=== PATIENT | female | born 1975 | race American Indian/Alaskan Native ===

== ENCOUNTER 2018-08-02 06:20 | Inpatient (IN) | payer MEDICARE ==
[2018-08-02] MEDS ORDERED: NACL 0.9% 1000 ML 1,000 ML IV ONE ×3 (06:40→10:45)
[2018-08-02] MEDS ORDERED: DILAUDID IV ONE (06:40)
--- NOTE | 2018-08-02 06:42 | Emergency Department Report ---
- General Chief complaint: Weakness Stated complaint: WEAKNESS Time Seen by Provider: 08/02/18 06:38 Source: patient, EMS Mode of arrival: Stretcher Limitations: Physical Limitation - History of Present Illness Initial comments: Patient is a 42-year-old female with episodes of marginal complaints of generalized weakness times one week that is worsening and bilateral leg pain and edema. Patient states that her leg pain is a 10 out of 10 and is worsening. Patient states the pain is the entire leg but mostly below the knee. Patient states the swelling in her legs or below the knee and are worsening. Patient states the pain is better with rest and worse with palpation and movement. 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 Patient denies chest pain or shortness of breath. Patient denies abdominal pain. Patient denies diaphoresis. Patient denies fever and chills. MD Complaint: generalized weakness -: Gradual Location: generalized Severity: severe Consistency: constant Improves with: rest Worsens with: movement Associated Symptoms: denies: chest pain, confusion, dark stools, diaphoresis, dysuria, easy bruising, fever/chills, headaches, loss of appetite, alec sea/vomiting, rash, shortness of breath, syncope - Related Data Home Medications Medication Instructions Recorded Confirmed Last Taken No Known Home Medications [No 08/02/18 08/02/18 Unknown Reported Home Medications] Allergies Allergy/AdvReac Type Severity Reaction Status Date / Time morphine Allergy Rash Verified 08/02/18 06:49 ED Review of Systems ROS: Stated complaint: WEAKNESS Other details as noted in HPI Constitutional: weakness. denies: chills, fever Eyes: denies: eye pain, eye discharge, vision change ENT: denies: ear pain, throat pain Respiratory: denies: cough, shortness of breath, wheezing Cardiovascular: denies: chest pain, palpitations Endocrine: no symptoms reported Gastrointestinal: denies: abdominal pain, nausea, diarrhea Genitourinary: denies: urgency, dysuria, discharge Musculoskeletal: denies: back pain, joint swelling, arthralgia Skin: denies: rash, lesions Neurological: weakness. denies: headache, paresthesias Psychiatric: denies: anxiety, depression Hematological/Lymphatic: denies: easy bleeding, easy bruising ED Past Medical Hx - Past Medical History Previous Medical History?: Yes Hx Asthma: Yes Additional medical history: Fibromyalgia - Surgical History Past Surgical History?: No - Family History Family history: no significant - Social History Smoking Status: Never Smoker Substance Use Type: None - Medications Home Medications: Home Medications Medication Instructions Recorded Confirmed Last Taken Type No Known Home Medications [No 08/02/18 08/02/18 Unknown History Reported Home Medications] ED Physical Exam - General Limitations: Physical Limitation General appearance: alert, in no apparent distress - Head Head exam: Present: atraumatic, normocephalic - Eye Eye exam: Present: normal appearance, PERRL Pupils: Present: normal accommodation - ENT ENT exam: Present: mucous membranes dry - Neck Neck exam: Present: normal inspection - Respiratory Respiratory exam: Present: normal lung sounds bilaterally. Absent: respiratory distress - Cardiovascular Cardiovascular Exam: Present: regular rate, normal rhythm. Absent: systolic murmur, diastolic murmur, rubs, gallop - GI/Abdominal GI/Abdominal exam: Present: soft, normal bowel sounds. Absent: distended, tenderness, guarding, rebound - Rectal Rectal exam: Present: deferred - Extremities Exam Extremities exam: Present: full ROM, tenderness, pedal edema, calf tenderness, other (red area noted on left medial ankle. Consistent with cellulitis) - Back Exam Back exam: Present: normal inspection - Neurological Exam Neurological exam: Present: alert, oriented X3 - Psychiatric Psychiatric exam: Present: normal affect, normal mood - Skin Skin exam: Present: warm, dry, intact, normal color. Absent: rash - Assessment Assessment Interval: Baseline - Level of Consciousness 1a. Level of Consciousness: alert/keenly responsive - LOC Questions 1b. LOC Questions: answers both correctly - LOC Command 1c. LOC Commands: performs tasks correctly - Best Gaze 2. Best Gaze: normal - Visual 3. Visual: no visual loss - Facial Palsy 4. Facial Palsy: normal symmetrical movement - Motor Arm 5b. Motor Arm Right: no drift 5a. Motor Arm Left: no drift - Motor Leg 6b. Motor Leg Right: no drift 6a. Motor Leg Left: no drift - Limb Ataxia 7. Limb Ataxia: absent - Sensory 8. Sensory: normal - Best Language 9. Best Language: no aphasia - Dysarthria 10. Dysarthria: normal - Extinction and Inattention 11. Extinction/Inattention: no abnormality - Scoring Total Score: 0 Stroke Severity: No Stroke Symptoms ED Course Vital Signs 08/02/18 08/02/18 08/02/18 06:25 10:41 12:34 Temperature 98.6 F Pulse Rate 98 H 110 H 107 H Respiratory 18 16 16 Rate Blood Pressure 150/84 Blood Pressure 102/53 138/86 [Left] O2 Sat by Pulse 95 97 96 Oximetry - Reevaluation(s) Reevaluation #1: Patient states the pain is improved with medications. Patient's initial saline bolus done. Patient's nurse instructed to hang another liter. 08/02/18 08:45 Another liter bolus will be given. Discussed all results with patient. Patient was admitted to the hospitalist service. 08/02/18 10:46 Discussed all results with patient. Patient agrees with plan of care and admission. Patient admitted to the hospitalist service for further evaluation treatment. 08/02/18 11:30 - Consultations Consultation #1: Hospitalist consulted for admission. Hospitalist to admit patient. Hospitalist to assume care patient. 08/02/18 11:30 ED Medical Decision Making - Lab Data Result diagrams: 08/02/18 Unknown 08/02/18 Unknown - EKG Data -: EKG Interpreted by Me EKG shows normal: sinus rhythm, axis, intervals, QRS complexes, ST-T waves Rate: normal - Radiology Data Radiology results: report reviewed, image reviewed interpreted by me: Negative chest x-ray AP CHEST: HISTORY: Weakness, fall, pain There is poor inspiration. The lungs are grossly clear. Heart and mediastinal structures are unremarkable. No acute bony abnormality is detected. IMPRESSION: Negative expiratory chest x-ray. CT HEAD WITHOUT CONTRAST: HISTORY: Weakness. TECHNIQUE: Sequential 2.5mm CT images. COMPARISON: none. FINDINGS: Cerebral Parenchyma: Within normal limits. Cerebellum: Within normal limits. Brainstem: Within normal limits. Ventricles: Normal. Sella: Normal. Extra-axial spaces: Normal. Basal Cisterns: Normal. Intracranial Hemorrhage: None. Midline Shift: None. Calvarium: Normal. Sinuses: Normal. Mastoid Air Cells: Normal. Visualized Orbits: Normal. IMPRESSION: Cranial CT scan within normal limits. - Medical Decision Making Patient is a 42-year-old female that presents emergency room with multiple complaints. Patient found to have elevated CK and elevated WBC. Patient also has a mild cellulitis to the left medial ankle. Patient given antibiotics. Patient's findings are consistent with sepsis. Patient's finding consistent with mild rhabdomyolysis and dehydration as well as renal insufficiency. Patient given multiple saline boluses. Patient will be admitted to the hospitalist service for further evaluation and treatment. - Differential Diagnosis weakness. rhabdo. body aches. myalgia. leg pain. Critical Care Time: Yes Critical care attestation.: If time is entered above; I have spent that time in minutes in the direct care of this critically ill patient, excluding procedure time. Critical Care Time: 45 minutes ED Disposition Clinical Impression: Bilateral lower extremity pain, Bilateral lower extremity edema, Weakness, Body aches, Renal insufficiency, Metabolic acidosis Rhabdomyolysis Qualifiers: Rhabdomyolysis type: non-traumatic Qualified Code(s): M62.82 - Rhabdomyolysis Cellulitis Qualifiers: Site of cellulitis: extremity Site of cellulitis of extremity: lower extremity Laterality: left Qualified Code(s): L03.116 - Cellulitis of left lower limb Sepsis Qualifiers: Sepsis type: sepsis due to unspecified organism Qualified Code(s): A41.9 - Sepsis, unspecified organism UTI (urinary tract infection) Qualifiers: Urinary tract infection type: acute cystitis Hematuria presence: with hematuria Qualified Code(s): N30.01 - Acute cystitis with hematuria Disposition: OP ADMIT IP TO THIS HOSP Is pt being admited?: Yes Does the pt Need Aspirin: No Condition: Critical Time of Disposition: 11:30
[2018-08-02 07:01] LABS: Basophils # (Auto) 0.1 K/mm3 (0.0-0.1); Basophils % (Auto) 0.4 % (0.0-1.8); Hematocrit 45.8 % (30.3-42.9); Hemoglobin 15.4 gm/dl (10.1-14.3); Lymphocytes # (Auto) 0.6 K/mm3 (1.2-5.4); Lymphocytes % (Auto) 3.6 % (13.4-35.0); Mean Corpuscular HGB Conc 34 % (30-34); Mean Corpuscular Volume 94 fl (79-97); Monocytes # (Auto) 0.9 K/mm3 (0.0-0.8); Platelet Count 340 K/mm3 (140-440); Red Blood Count 4.89 M/mm3 (3.65-5.03)
[2018-08-02 07:16] LABS: Creatine Kinase MB 285.3 ng/mL (0.0-4.0)
[2018-08-02 07:17] LABS: Alanine Aminotransferase 44 units/L (7-56); Albumin 4.7 g/dL (3.9-5); BUN/Creatinine Ratio 14; Blood Urea Nitrogen 20 mg/dL (7-17); Calcium 9.4 mg/dL (8.4-10.2); Hemolysis Index 15
--- NOTE | 2018-08-02 08:11 | XRay Report ---
AP CHEST: HISTORY: Weakness, fall, pain There is poor inspiration. The lungs are grossly clear. Heart and mediastinal structures are unremarkable. No acute bony abnormality is detected. IMPRESSION: Negative expiratory chest x-ray.
[2018-08-02] MEDS ORDERED: CLEOCIN 300 MG/50 mL 300 MG/50 ML BAG IV STA (10:52)
--- NOTE | 2018-08-02 10:55 | Cat Scan Report ---
CT HEAD WITHOUT CONTRAST: HISTORY: Weakness. TECHNIQUE: Sequential 2.5mm CT images. COMPARISON: none. FINDINGS: Cerebral Parenchyma: Within normal limits. Cerebellum: Within normal limits. Brainstem: Within normal limits. Ventricles: Normal. Sella: Normal. Extra-axial spaces: Normal. Basal Cisterns: Normal. Intracranial Hemorrhage: None. Midline Shift: None. Calvarium: Normal. Sinuses: Normal. Mastoid Air Cells: Normal. Visualized Orbits: Normal. IMPRESSION: Cranial CT scan within normal limits.
[2018-08-02 11:09] LABS: Bilirubin,Urine NEG (Negative); Blood,Urine LG (Negative); Color,Urine Amber (Yellow); Mucus,Urine 2+ /HPF
[2018-08-02 11:23] LABS: HCG Qualitative,Urine Negative (Negative)
[2018-08-02 12:07] LABS: Amphetamine Screen,Urine PRESUMPTIVE NEGATIVE; Cannabinoid Screen,Urine PRESUMPTIVE NEGATIVE; Cocaine Screen,Urine PRESUMPTIVE NEGATIVE; Methadone Screen,Urine PRESUMPTIVE NEGATIVE; Opiate Screen,Urine PRESUMPTIVE NEGATIVE
[2018-08-02] MEDS ORDERED: SOLU-Medrol IV ONE (12:26)
[2018-08-02 12:34] LABS: Benzodiazepines Screen,Urine PRESUMPTIVE POSITIVE
[2018-08-02] MEDS: ROCEPHIN/NS 2 GM/100 ML 2 GM/100 ML BAG IV SCH (13:50)
[2018-08-02] MEDS ORDERED: SODIUM CHLORIDE FLUSH SYRINGE 10 ML IV PRN (16:58)
[2018-08-02] MEDS ORDERED: TYLENOL PO PRN (16:58)
[2018-08-02] MEDS ORDERED: ZOFRAN IV PRN (16:58)
[2018-08-02] MEDS ORDERED: PROVENTIL IH PRN (16:58)
[2018-08-02] MEDS: DILAUDID IV PRN (18:43)
--- NOTE | 2018-08-02 21:24 | History and Physical Report ---
History of Present Illness Date of admission: 08/02/18 16:58 Chief complaint: My foot is red, and im just tired and sore History of present illness: 42 YO Female with Obesity, Fibromyalgia, Noncompliant with Rheumatologic Medication, Asthma, Medication Noncompliance presents to ED for evaluation. Pt states that she has experienced pain all over her body over the past week with worsening symptoms over the past 2 days. Pt also reports generalized weakness and difficulty sleeping. Pt allso reports redness and tenderness to the left foot. Pt seen and evaluated in ED and found to have LLE Cellulitis, SIRS, Acidosis, as well as flare of Fibromyalgia. Pt admitted to medical floor. Pt denies fever, chills, chest pain, confusion, dark stools, diaphoresis, dysuria, easy bruising, fever/chills, headaches, loss of appetite, nausea/vomiting, rash, shortness of breath, syncope,unilaateral leg pain, calf pain, hemoptysis, individual/family history of DVT/PE. Past History Past Medical History: other (Fibromyalgia) Past Surgical History: No surgical history, Other (reviewed) Social history: single. denies: smoking, alcohol abuse, prescription drug abuse Family history: hypertension Medications and Allergies Allergies Allergy/AdvReac Type Severity Reaction Status Date / Time morphine Allergy Rash Verified 08/02/18 06:49 Home Medications Medication Instructions Recorded Confirmed Last Taken Type Clindamycin [Clindamycin CAP] 300 mg PO Q8H #21 cap 08/02/18 Unknown Rx Active Meds: Active Medications Acetaminophen (Tylenol) 650 mg PO Q4H PRN PRN Reason: Pain MILD(1-3)/Fever >100.5/GRAY Albuterol (Proventil) 2.5 mg IH Q4HRT PRN PRN Reason: Shortness Of Breath Famotidine (Pepcid) 20 mg PO BID BO Hydromorphone HCl (Dilaudid) 0.5 mg IV Q3H PRN PRN Reason: Pain , Severe (7-10) Last Admin: 08/02/18 18:43 Dose: 0.5 mg Documented by: Ceftriaxone Sodium (Rocephin/Ns 2 Gm/100 Ml) 2 gm in 100 mls @ 200 mls/hr IV Q12H BO; Protocol Last Admin: 08/02/18 13:50 Dose: 200 mls/hr Documented by: Ondansetron HCl (Zofran) 4 mg IV Q8H PRN PRN Reason: Nausea And Vomiting Sodium Chloride (Sodium Chloride Flush Syringe 10 Ml) 10 ml IV BID BO Sodium Chloride (Sodium Chloride Flush Syringe 10 Ml) 10 ml IV PRN PRN PRN Reason: LINE FLUSH Review of Systems Constitutional: fatigue, weakness, no weight loss, no weight gain, no fever, no chills Ears, nose, mouth and throat: no ear pain, no ear discharge, no tinnitis, no decreased hearing, no nose pain Breasts: no change in shape, no swelling, no mass Cardiovascular: no chest pain, no orthopnea, no palpitations, no rapid/irregular heart beat, no edema Respiratory: no cough, no excessive sputum, no shortness of breath Gastrointestinal: no nausea, no vomiting, no diarrhea, no constipation Genitourinary Female: no pelvic pain, no flank pain, no menorrhagia, no dysuria Rectal: no pain, no incontinence, no bleeding Musculoskeletal: muscle cramps, myalgias, no neck stiffness, no neck pain, no low back pain, no shooting leg pain Integumentary: no rash, no pruritis, no redness, no sores, no wounds Neurological: no transient paralysis, no paralysis, no weakness, no parathesias, no numbness Psychiatric: depression, no anxiety, no memory loss, no sleep disturbances, no insomnia, no change in appetite Endocrine: no cold intolerance, no heat intolerance, no polyphagia, no excessive thirst, no polydipsia, no polyuria, no nocturia Hematologic/Lymphatic: no easy bruising, no easy bleeding, no lymphadenopathy, no lymphedema Allergic/Immunologic: no wheezing, no persistent infections, no anaphylaxis, no angioedema Exam - Constitutional Vitals: Temp Pulse Resp BP Pulse Ox 97.6 F 110 H 20 135/92 98 08/02/18 18:38 08/02/18 17:43 08/02/18 18:38 08/02/18 18:38 08/02/18 17:43 General appearance: Present: mild distress - EENT Eyes: Present: PERRL ENT: hearing intact, clear oral mucosa - Neck Neck: Present: supple, normal ROM - Respiratory Respiratory effort: normal Respiratory: bilateral: CTA - Cardiovascular Heart Sounds: Present: S1 & S2. Absent: rub, click - Extremities Extremities: pulses symmetrical, No edema Peripheral Pulses: within normal limits - Abdominal General gastrointestinal: Present: soft, non-tender, non-distended, normal bowel sounds Female genitourinary: Present: normal - Integumentary Integumentary: Present: clear, warm, dry - Musculoskeletal Musculoskeletal: gait normal, strength equal bilaterally - Psychiatric Psychiatric: appropriate mood/affect, intact judgment & insight - Neurologic Neurologic: CNII-XII intact, moves all extremities Results - Labs CBC & Chem 7: 08/02/18 Unknown 08/02/18 Unknown Labs: Abnormal lab results 08/02/18 08/02/18 08/02/18 Range/Units 10:24 11:58 14:54 WBC (4.5-11.0) K/mm3 Hgb (10.1-14.3) gm/dl Hct (30.3-42.9) % RDW (13.2-15.2) % Lymph % (Auto) (13.4-35.0) % Lymph # (1.2-5.4) K/mm3 [place] # (0.0-0.8) K/mm3 Seg Neutrophils % (40.0-70.0) % Seg Neutrophils # (1.8-7.7) K/mm3 Carbon Dioxide (22-30) mmol/L BUN (7-17) mg/dL Creatinine (0.7-1.2) mg/dL Lactic Acid 3.20 H* (0.7-2.0) mmol/L AST (5-40) units/L Total Creatine Kinase (30-135) units/L CK-MB (CK-2) (0.0-4.0) ng/mL CK-MB (CK-2) Rel Index (0-4) C-Reactive Protein 7.40 H (0.00-1.30) mg/dL Urine WBC (Auto) 7.0 H (0.0-6.0) /HPF 08/02/18 08/02/18 Range/Units Unknown Unknown WBC 15.3 H (4.5-11.0) K/mm3 Hgb 15.4 H (10.1-14.3) gm/dl Hct 45.8 H (30.3-42.9) % RDW 16.0 H (13.2-15.2) % Lymph % (Auto) 3.6 L (13.4-35.0) % Lymph # 0.6 L (1.2-5.4) K/mm3 [place] # 0.9 H (0.0-0.8) K/mm3 Seg Neutrophils % 90.0 H (40.0-70.0) % Seg Neutrophils # 13.7 H (1.8-7.7) K/mm3 Carbon Dioxide 19 L (22-30) mmol/L BUN 20 H (7-17) mg/dL Creatinine 1.4 H (0.7-1.2) mg/dL Lactic Acid (0.7-2.0) mmol/L AST 336 H (5-40) units/L Total Creatine Kinase 605 H (30-135) units/L CK-MB (CK-2) 285.3 H (0.0-4.0) ng/mL CK-MB (CK-2) Rel Index 47.1 H (0-4) C-Reactive Protein (0.00-1.30) mg/dL Urine WBC (Auto) (0.0-6.0) /HPF Assessment and Plan - Patient Problems (1) Fibromyalgia Current Visit: Yes Status: Acute Plan to address problem: Steroid therapy, ESR, CRP, outpatient rheumatologic f/u care. (2) SIRS (systemic inflammatory response syndrome) Current Visit: Yes Status: Acute (3) Acidosis Current Visit: Yes Status: Acute Plan to address problem: IV fluid resuscitation therapy, treat sirs/cellulitis, repeat bmp (4) Cellulitis Current Visit: Yes Status: Acute Qualifiers: Site of cellulitis: extremity Site of cellulitis of extremity: lower extremity Laterality: left Qualified Code(s): L03.116 - Cellulitis of left lower limb Plan to address problem: IV antibiotic therapy, CBC, CMP, wound care, Duplex-lower extremity (5) DVT prophylaxis Current Visit: Yes Status: Acute Plan to address problem: scd to ble while in bed
[2018-08-02] MEDS: SODIUM CHLORIDE FLUSH SYRINGE 10 ML IV SCH (21:47)
[2018-08-02] MEDS: PEPCID PO SCH (21:47)
[2018-08-03] MEDS ORDERED: NACL 0.45% 1000 ML IV SCH (03:00)
[2018-08-03] MEDS: PERCOCET 5/325 PO PRN ×2 (03:02→10:45)
[2018-08-03] MEDS: ROCEPHIN/NS 2 GM/100 ML 2 GM/100 ML BAG IV SCH (03:02)
[2018-08-03] MEDS: NACL 0.45% 1000 ML 1,000 ML IV SCH (03:06)
[2018-08-03 07:43] LABS: Basophils % (Auto) 0.2 % (0.0-1.8); Eosinophils % (Auto) 0.1 % (0.0-4.3); Hematocrit 38.8 % (30.3-42.9); Hemoglobin 12.9 gm/dl (10.1-14.3); Lymphocytes # (Auto) 1.4 K/mm3 (1.2-5.4); Lymphocytes % (Auto) 9.4 % (13.4-35.0); Mean Corpuscular HGB Conc 33 % (30-34); Mean Corpuscular Volume 94 fl (79-97); Monocytes # (Auto) 1.3 K/mm3 (0.0-0.8); Monocytes % (Auto) 8.4 % (0.0-7.3); Platelet Count 233 K/mm3 (140-440); Red Blood Count 4.15 M/mm3 (3.65-5.03); Red Cell Distribution Width 15.5 % (13.2-15.2)
--- NOTE | 2018-08-03 08:57 | Vascular Lab Report ---
FINAL REPORT EXAM: VL VENOUS DUPLEX LE BILAT HISTORY: leg pain and swelling COMPARISON: None. TECHNIQUE: Duplex Doppler ultrasound of the veins of bilateral lower extremities was performed. FINDINGS: The veins of the right lower extremity are patent, compressible, and demonstrate normal waveforms and augmentation. The left common femoral vein, superficial femoral vein, and popliteal vein are patent, compressible, and demonstrate normal waveforms and augmentation. There is suboptimal visualization of the left post erior tibial vein and peroneal vein, which may be due to patient's body habitus. IMPRESSION: No evidence of deep venous thrombosis of the right lower extremity. Poor visualization of the left posterior tibial vein and peroneal vein at the level of the proximal c senior care, and deep venous thrombosis cannot be fully excluded. The remainder of the left-sided veins are p atent. Recommend clinical correlation and consider repeat imaging if clinically indicated.
[2018-08-03] MEDS: PEPCID PO SCH ×2 (09:28→22:02)
[2018-08-03] MEDS: SODIUM CHLORIDE FLUSH SYRINGE 10 ML IV SCH ×2 (09:29→22:05)
[2018-08-03] MEDS ORDERED: MAXIPIME/NS 1 GM/100 ML 1 GM/100 ML BAG IV SCH (11:00)
--- NOTE | 2018-08-03 14:57 | Consultation ---
History of Present Illness - Reason for Consult Consult date: 08/03/18 Blisters and Cellulitis of left leg Requesting physician: GUMARO MONTALVO - History of Present Illness This patient is a 42 year old female with a past medical history of Fibromyalgia, noncompliant with rheumatologic mediation, Asthma, obesity and medication noncompliance that presents to the ED on 08/02/18 for generalized pain all over her body for the past week with worsening symptoms over the past 2 days, patient also reports redness and tenderness to the left foot. On admiss ion WBC 15.3, Creatinine 1.4, lactic Acid 3.20, AST 336, ALT 44, AP 109, CK 605, CRP 7.40, Temperature 98.1, HR 110, BP 150/84, U/A with Pyruria , negative leukocyte esterase, Chest xray showed no consolidation, blood cultures were drawn and are in progress, Urine cultures showed mixed culture of greater than 2 organisms. Patient states that her leg swelling started after she was bitten by her b oyfriends dog 2 days ago. She also states that she suddenly is having problems "finding her words" and has increased confusion. Review of Systems: General: no fever, chills, nightsweats, unintentional weight change, or change in appetite Cutaneous: no rash, pruritus Head: no headaches or injury Eyes: no changes in vision, eye pain, double vision Ears: no ear pain, ear discharge, ringing or hearing loss Nose: no nose bleeding, stuffiness Mouth & throat: no bleeding gums, no horseness, no dental problems, or swollen glands Neck: no pain, node enlargement/lumps, tyroid enlargement or tenderness Respiratory: + cough, wheezing, sputum, hemoptysis, pleuritic chest pain Cardiovascular: no chest pain, leg edema, cyanosis, FARIAS, orthopnea Musculoskeletal: LLE warm /tender, blistering Gastrointestinal: no nausea, vomiting, hematemesis, diarrhea, constipation, melena, bright red blood in stools, fecal incontinence, jaundice Genitourinary/Reproductive: frequent urination, no dysuria, hematuria, incontinence Neurogical: no seizures, no headaches, no weakness, no paresthesias, +confusion Psychiatric: stable mood; no excessive anxiety Past History Past Medical History: other (Fibromyalgia) Past Surgical History: No surgical history, Other (reviewed) Social history: single. denies: smoking, alcohol abuse, prescription drug abuse Family history: hypertension Medications and Allergies Allergies Allergy/AdvReac Type Severity Reaction Status Date / Time morphine Allergy Rash Verified 08/02/18 06:49 Home Medications Medication Instructions Recorded Confirmed Last Taken Type Clindamycin [Clindamycin CAP] 300 mg PO Q8H #21 cap 08/02/18 Unknown Rx Acyclovir 1 tab PO BID 08/03/18 08/03/18 Unknown History Buspirone HCl 15 mg PO TID 08/03/18 08/03/18 08/01/18 History Doxepin 50 mg PO HS 08/03/18 08/03/18 08/01/18 History Doxepin 100 mg PO HS 08/03/18 08/03/18 07/31/18 History Fluticasone 1 puff AU DAILY PRN 08/03/18 08/03/18 08/01/18 History Haloperidol 5 mg PO HS PRN 08/03/18 08/03/18 Unknown History LaMICtal 100 tab PO BID 08/03/18 08/03/18 08/01/18 History Lyrica 150 mg PO TID 08/03/18 08/03/18 08/01/18 History Topiramate 200 mg PO BID 08/03/18 08/03/18 08/01/18 History Xanax 1 mg PO TID 08/03/18 08/03/18 Unknown History Ziprasidone 80 mg PO BID 08/03/18 08/03/18 Unknown History traZODone 150 mg PO DAILY 08/03/18 08/03/18 08/01/18 History Active Meds: Active Medications Acetaminophen (Tylenol) 650 mg PO Q4H PRN PRN Reason: Pain MILD(1-3)/Fever >100.5/GRAY Albuterol (Proventil) 2.5 mg IH Q4HRT PRN PRN Reason: Shortness Of Breath Famotidine (Pepcid) 20 mg PO BID [facility] Last Admin: 08/03/18 09:28 Dose: 20 mg Documented by: Hydromorphone HCl (Dilaudid) 0.5 mg IV Q3H PRN PRN Reason: Pain , Severe (7-10) Last Admin: 08/02/18 18:43 Dose: 0.5 mg Documented by: Sodium Chloride (Nacl 0.45% 1000 Ml) 1,000 mls @ 75 mls/hr IV DIRECT BO Last Admin: 08/03/18 03:06 Dose: 75 mls/hr Documented by: Cefepime HCl (Maxipime/Ns 1 Gm/100 Ml) 1 gm in 100 mls @ 200 mls/hr IV Q8HR BO; Protocol Last Admin: 08/03/18 10:36 Dose: 200 mls/hr Documented by: Ondansetron HCl (Zofran) 4 mg IV Q8H PRN PRN Reason: Nausea And Vomiting Oxycodone/Acetaminophen (Percocet 5/325) 2 tab PO Q6H PRN PRN Reason: Pain, Moderate (4-6) Last Admin: 08/03/18 10:45 Dose: 2 tab Documented by: Sodium Chloride (Sodium Chloride Flush Syringe 10 Ml) 10 ml IV BID BO Last Admin: 08/03/18 09:29 Dose: 10 ml Documented by: Sodium Chloride (Sodium Chloride Flush Syringe 10 Ml) 10 ml IV PRN PRN PRN Reason: LINE FLUSH Physical Examination - Physical Exam Narrative exam: Constitutional: Alert, confused, left leg pain, 8/10 on numberic pain scale Head, Ears, Nose: Normocephalic, atraumatic. External ears, nose normal Eyes: Conjunctivae/corneas clear. No icterus. No ptosis. Neck: Supple, no meningeal signs Oral: dentition good, no thrush Cardiovascular: S1, S2 normal. Respiratory: Good air entry, clear to auscultation bilaterally GI: Soft, non-tender; bowel sounds normal. No peritoneal signs Musculoskeletal: LLE edematous, warm and tender with blistering on back of left lower limb Skin: No rash or abscess. blistering on Hem/Lymphatic: No palpable cervical or supraclavicular nodes. No lymphangitis Psych: Mood ok. Affect normal Neurological: Awake, alert, confused - Constitutional Vitals: Vital Signs Temp Pulse Resp BP Pulse Ox 98.1 F 106 H 20 113/69 94 08/03/18 11:32 08/03/18 11:32 08/03/18 11:32 08/03/18 11:32 08/03/18 11:32 Temperature -Last 24 Hours Temperature 98.1 F Temperature 98.2 F Temperature 99.6 F Temperature 97.6 F Results - Labs CBC & Chem 7: 08/03/18 06:25 08/02/18 Unknown Labs: Abnormal lab results 08/02/18 08/03/18 Range/Units 14:54 06:25 WBC 15.1 H (4.5-11.0) K/mm3 RDW 15.5 H (13.2-15.2) % Lymph % (Auto) 9.4 L (13.4-35.0) % [place] % (Auto) 8.4 H (0.0-7.3) % [place] # 1.3 H (0.0-0.8) K/mm3 Seg Neutrophils % 81.9 H (40.0-70.0) % Seg Neutrophils # 12.4 H (1.8-7.7) K/mm3 C-Reactive Protein 7.40 H (0.00-1.30) mg/dL Assessment and Plan Cultures: 08/02/2018 Urine: 10-100,000 for mixed culture > 2 organisms 08/02/2018 Blood: in progress A/P: 42-year-old female with a past medical history of Fibromyalgia, noncompliant with rheumatologic medicaiton, Asthma, obesity and medication noncompliance, admitted with: 1. SIRS vs Sepsis: on admission, evidenced by leukocytois, tachycardia and elevated lactic acid, etiology most likely LLE cellulites, +/- Fibromyalgia, receiving steroid therapy, no fevers. Chest xray shows no consolidation, U/A with pyuria, urine culture shows 10-100,000 for mixed culture > 2 organisms, Blood cultures were drawn and are pending. Currently being treated with cefepime. Discontnue Cefepime, start Vancomycin and Unasyn. 2. LLE cellulitis: Unable to exam at beside due to extreme tenderness, LLE edematous and warm, admission pictures show blistering to the left lower limb and ankle. Admits to dog bite 2 days ago. Arterial Doppler: No evidence of deep venous thrombosis of the right lower extremity. Poor visualization of the left posterior tibial vein, and peroneal vein at the and deep venous thrombosis cannot be fully excluded. CRP 7.40 3. Mild Pyuria: U/A pyuria w/o leukocyte esterase, urine culture mixed greater than 2 organisms 4. 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 Acute Encephalopathy: difficulty with memory for the past two days. Head CT within normal limits Plan: -f/u blood culture -f/u urine culture -Start Vancomycin, Pk dose -Start Unasyn 1.5gm IV every 6 hours [facility] M: [phone] O:[phone]
--- NOTE | 2018-08-03 15:19 | Progress Note ---
Assessment and Plan Assessment and plan: Sepsis secondary to cellulitis - Likely due to cellulitis of the left leg - Evidenced by tachycardia, Lactic acidosis and leukocytosis - Patient is on IV antibiotics, IV fluid - We'll follow the results duplex - ID consult placed Fibromyalgia: - Pain control - Continue home medications Lactic Acidosis - IV fluid, treat underlying condition patient has a lot of psych and seizure medications - Resume home medications DVT prophylaxis - On heparin Disposition - Continue inpatient care. History Interval history: Patient was seen and evaluated this morning, patient was complaining severe pain all over had body, she was complaining swelling and blisters on the left leg. Hospitalist Physical - Physical exam Narrative exam: Not in cardiopulmonary distress. The patient is obese. Vital signs as documented. Head exam is unremarkable. No scleral icterus . Neck is without jugular venous distension, thyromegaly, or carotid bruits. Lungs are clear to auscultation. Cardiac exam reveals regular rate and Rhythm. First and second heart sounds normal. No murmurs, rubs or gallops. Abdominal exam reveals normal bowel sounds, no masses, no organomegaly and no aortic enlargement. Extremities swelling, erythema and tenderness of the left leg. Blisters on the left Achilles area, The blisters in the popliteal area are denuded. 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 No focal weakness. - Constitutional Vitals: Temp Pulse Resp BP Pulse Ox 98.1 F 106 H 20 113/69 94 08/03/18 11:32 08/03/18 11:32 08/03/18 11:32 08/03/18 11:32 08/03/18 11:32 General appearance: Present: mild distress Results - Labs CBC & Chem 7: 08/03/18 06:25 08/02/18 Unknown Labs: Laboratory Last Values WBC 15.1 K/mm3 (4.5-11.0) H 08/03/18 06:25 RBC 4.15 M/mm3 (3.65-5.03) 08/03/18 06:25 Hgb 12.9 gm/dl (10.1-14.3) 08/03/18 06:25 Hct 38.8 % (30.3-42.9) D 08/03/18 06:25 MCV 94 fl (79-97) 08/03/18 06:25 MCH 31 pg (28-32) 08/03/18 06:25 MCHC 33 % (30-34) 08/03/18 06:25 RDW 15.5 % (13.2-15.2) H 08/03/18 06:25 Plt Count 233 K/mm3 (140-440) 08/03/18 06:25 Lymph % (Auto) 9.4 % (13.4-35.0) L 08/03/18 06:25 [place] % (Auto) 8.4 % (0.0-7.3) H 08/03/18 06:25 Eos % (Auto) 0.1 % (0.0-4.3) 08/03/18 06:25 Baso % (Auto) 0.2 % (0.0-1.8) 08/03/18 06:25 Lymph # 1.4 K/mm3 (1.2-5.4) 08/03/18 06:25 [place] # 1.3 K/mm3 (0.0-0.8) H 08/03/18 06:25 Eos # 0.0 K/mm3 (0.0-0.4) 08/03/18 06:25 Baso # 0.0 K/mm3 (0.0-0.1) 08/03/18 06:25 Seg Neutrophils % 81.9 % (40.0-70.0) H 08/03/18 06:25 Seg Neutrophils # 12.4 K/mm3 (1.8-7.7) H 08/03/18 06:25 ESR 4 mm/Hr (0-20) 08/02/18 Unknown Sodium 140 mmol/L (137-145) 08/02/18 Unknown Potassium 4.2 mmol/L (3.6-5.0) 08/02/18 Unknown Chloride 101.7 mmol/L (98-107) 08/02/18 Unknown Carbon Dioxide 19 mmol/L (22-30) L 08/02/18 Unknown Anion Gap 24 mmol/L 08/02/18 Unknown BUN 20 mg/dL (7-17) H 08/02/18 Unknown Creatinine 1.4 mg/dL (0.7-1.2) H 08/02/18 Unknown Estimated GFR 50 ml/min 08/02/18 Unknown BUN/Creatinine Ratio 14 % 08/02/18 Unknown Glucose 95 mg/dL (65-100) 08/02/18 Unknown Lactic Acid 3.20 mmol/L (0.7-2.0) H* 08/02/18 11:58 Calcium 9.4 mg/dL (8.4-10.2) 08/02/18 Unknown Total Bilirubin 0.40 mg/dL (0.1-1.2) 08/02/18 Unknown AST 336 units/L (5-40) H 08/02/18 Unknown ALT 44 units/L (7-56) 08/02/18 Unknown Alkaline Phosphatase 109 units/L (35-129) 08/02/18 Unknown Total Creatine Kinase 605 units/L (30-135) H 08/02/18 Unknown CK-MB (CK-2) 285.3 ng/mL (0.0-4.0) H 08/02/18 Unknown CK-MB (CK-2) Rel Index 47.1 (0-4) H 08/02/18 Unknown Troponin T < 0.010 ng/mL (0.00-0.029) 08/02/18 Unknown C-Reactive Protein 7.40 mg/dL (0.00-1.30) H 08/02/18 14:54 Total Protein 7.9 g/dL (6.3-8.2) 08/02/18 Unknown Albumin 4.7 g/dL (3.9-5) 08/02/18 Unknown Albumin/Globulin Ratio 1.5 % 08/02/18 Unknown HCG, Qual Negative (Negative) 08/02/18 Unknown Urine Color Lori (Yellow) 08/02/18 10:24 Urine Turbidity Cloudy (Clear) 08/02/18 10:24 Urine pH 6.0 (5.0-7.0) 08/02/18 10:24 Ur Specific [place] 1.020 (1.003-1.030) 08/02/18 10:24 Urine Protein 100 mg/dl mg/dL (Negative) 08/02/18 10:24 Urine Glucose (UA) Neg mg/dL (Negative) 08/02/18 10:24 Urine Ketones Neg mg/dL (Negative) 08/02/18 10:24 Urine Blood Lg (Negative) 08/02/18 10:24 Urine Nitrite Neg (Negative) 08/02/18 10:24 Urine Bilirubin Neg (Negative) 08/02/18 10:24 Urine Urobilinogen 2.0 mg/dL (<2.0) 08/02/18 10:24 Ur Leukocyte Esterase Neg (Negative) 08/02/18 10:24 Urine WBC (Auto) 7.0 /HPF (0.0-6.0) H 08/02/18 10:24 Urine RBC (Auto) 3.0 /HPF (0.0-6.0) 08/02/18 10:24 U Epithel Cells (Auto) 4.0 /HPF (0-13.0) 08/02/18 10:24 Urine Mucus 2+ /HPF 08/02/18 10:24 Urine HCG, Qual Negative (Negative) 08/02/18 10:24 Urine Opiates Screen Presumptive negative 08/02/18 10:33 Urine Methadone Screen Presumptive negative 08/02/18 10:33 Ur Barbiturates Screen Presumptive negative 08/02/18 10:33 Ur Phencyclidine Scrn Presumptive negative 08/02/18 10:33 Ur Amphetamines Screen Presumptive negative 08/02/18 10:33 U Benzodiazepines Scrn Presumptive positive 08/02/18 10:33 Urine Cocaine Screen Presumptive negative 08/02/18 10:33 U Marijuana (THC) Screen Presumptive negative 08/02/18 10:33 Drugs of Abuse Note Disclamer 08/02/18 10:33
[2018-08-03] MEDS ORDERED: HALDOL PO PRN (15:34)
[2018-08-03] MEDS ORDERED: VANCOMYCIN PHARMACY TO DOSE IV SCH (18:00)
[2018-08-03] MEDS ORDERED: VANCOMYCIN 1,750 MG in NACL 0.9% 500 ML 500 ML IV ONE (18:00)
[2018-08-03] MEDS: UNASYN/NS 1.5 GM/50 ML 1.5 GM/50 ML BAG IV SCH (18:42)
[2018-08-03] MEDS: LYRICA PO SCH (20:32)
[2018-08-03] MEDS: XANAX PO SCH (20:33)
[2018-08-03] MEDS: BUSPAR PO SCH (20:33)
[2018-08-03] MEDS: GEODON PO SCH (22:01)
[2018-08-03] MEDS: HEPARIN SUB-Q SCH (22:02)
[2018-08-03] MEDS: SINEquan PO SCH ×2 (22:02)
[2018-08-03] MEDS: DESYREL PO SCH (22:02)
[2018-08-03] MEDS: TOPAMAX PO SCH (22:04)
[2018-08-03] MEDS: LaMICtal PO SCH (22:04)
[2018-08-03] MEDS: DILAUDID IV PRN (22:15)
[2018-08-04] MEDS: UNASYN/NS 1.5 GM/50 ML 1.5 GM/50 ML BAG IV SCH ×3 (01:54→16:59)
[2018-08-04] MEDS: HEPARIN SUB-Q SCH ×2 (06:10→13:58)
[2018-08-04 08:18] LABS: Basophils # (Auto) 0.1 K/mm3 (0.0-0.1); Basophils % (Auto) 0.6 % (0.0-1.8); Eosinophils % (Auto) 0.3 % (0.0-4.3); Hematocrit 34.9 % (30.3-42.9); Hemoglobin 11.5 gm/dl (10.1-14.3); Lymphocytes # (Auto) 1.3 K/mm3 (1.2-5.4); Lymphocytes % (Auto) 8.6 % (13.4-35.0); Mean Corpuscular HGB Conc 33 % (30-34); Mean Corpuscular Volume 93 fl (79-97); Monocytes # (Auto) 1.4 K/mm3 (0.0-0.8); Monocytes % (Auto) 9.1 % (0.0-7.3); Platelet Count 225 K/mm3 (140-440); Red Blood Count 3.77 M/mm3 (3.65-5.03); Red Cell Distribution Width 15.2 % (13.2-15.2)
[2018-08-04 08:34] LABS: BUN/Creatinine Ratio 14; Blood Urea Nitrogen 13 mg/dL (7-17); Calcium 8.3 mg/dL (8.4-10.2); Hemolysis Index 1
[2018-08-04] MEDS: GEODON PO SCH (09:28)
[2018-08-04] MEDS: TOPAMAX PO SCH (09:29)
[2018-08-04] MEDS: XANAX PO SCH ×2 (09:31→14:50)
[2018-08-04] MEDS: LaMICtal PO SCH (09:31)
[2018-08-04] MEDS: LYRICA PO SCH ×2 (09:31→14:13)
[2018-08-04] MEDS: PEPCID PO SCH (09:31)
[2018-08-04] MEDS: BUSPAR PO SCH ×2 (09:32→14:13)
[2018-08-04] MEDS: SODIUM CHLORIDE FLUSH SYRINGE 10 ML IV SCH (09:41)
[2018-08-04] MEDS ORDERED: K-DUR PO NR (09:42)
--- NOTE | 2018-08-04 09:55 | Progress Note ---
Addendum entered and electronically signed by ELLY QUINONES NP 08/04/18 15:15: Dr. Roche will be distribution dispatcher this weekend, , please call for questions. Addendum entered and electronically signed by SOCORRO VAZQUEZ MD 08/04/18 14:58: Physician Attestation: I have seen and examined patient. I personally discussed and directed assessment and management with TALIA Quinones. Patient with extensive dog-bite associated cellulitis and acute encephalopathy. On unasyn and vancomycin, not better, still fever and leukocytosis. She is still confused. On exam extensive posterior left leg edema, skin sloughing and tenderness. Should r/o necrotizing soft tissue infection. Obtain start CT leg, start meropenem, clindamycin and continue vanco. Surgical consult. Socorro Orantes MD Infectious Diseases Senior Accountant [facility], [place] [facility] ([facility]) M [phone] O [phone] Original Note: Assessment and Plan Cultures: 08/02/2018 Urine: 10-100,000 for mixed culture > 2 organisms 08/02/2018 Blood: in progress A/P: 42-year-old female with a past medical history of Fibromyalgia, noncompliant with rheumatologic medicaiton, Asthma, obesity and medication noncompliance, admitted with: 1. SIRS vs Sepsis: Improved, evidenced by leukocytois, tachycardia and elevated lactic acid, etiology most likely LLE cellulites, +/- Fibromyalgia, receiving steroid therapy, no fevers. Chest xray shows no consolidation, U/A with pyuria, urine culture shows 10-100,000 for mixed culture > 2 organisms, Blood cultures were drawn and are pending. Currently being treated with cefepime. Discontnue Cefepime, start Vancomycin and Unasyn. 2. Dog Bite Associated Cellulitis LLE versus necrotizing infection: Unable to exam at beside due to extreme tenderness, LLE edematous and warm, admission pictures show blistering to the left lower limb and ankle. Admits to dog bite 2 days ago. DDX Pasteurella/Capnocytophaga/MRSA Arterial Doppler: No evidence of deep venous thrombosis of the right lower extremity. Poor visualization of the left posterior tibial vein, and peroneal vein at the and deep venous thrombosis cannot be fully excluded. CRP 7.40 3. Mild Pyuria: U/A pyuria w/o leukocyte esterase, urine culture mixed greater than 2 organisms 4. 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 Acute Encephalopathy: difficulty with memory for the past two days. Head CT within normal limits ? from severe sepsis from skin infection Plan: -urgent CT left leg r/o necrotizing infection -surgical consult -start meropenem and clindamycin -continue vancomycin for now -f/u blood culture -f/u urine culture - stop unasyn -order DEXTER, ANCA, C3, C4 close monitoring [facility] M: [phone] O:[phone] Subjective Date of service: 08/04/18 Objective - Constitutional Vitals: Vital Signs Temp Pulse Resp BP Pulse Ox 97.7 F 111 H 18 135/78 100 08/03/18 22:19 08/03/18 22:19 08/03/18 22:19 08/03/18 22:19 08/03/18 22:19 Temperature -Last 24 Hours Temperature 97.7 F Temperature 99.7 F Temperature 98.1 F - Labs CBC & Chem 7: 08/04/18 07:44 08/04/18 07:44 Labs: Abnormal lab results 08/03/18 08/04/18 08/04/18 Range/Units 16:18 07:44 07:44 WBC 14.9 H (4.5-11.0) K/mm3 Lymph % (Auto) 8.6 L (13.4-35.0) % [place] % (Auto) 9.1 H (0.0-7.3) % [place] # 1.4 H (0.0-0.8) K/mm3 Seg Neutrophils % 81.4 H (40.0-70.0) % Seg Neutrophils # 12.1 H (1.8-7.7) K/mm3 Sodium 136 L (137-145) mmol/L Potassium 3.3 L D (3.6-5.0) mmol/L Carbon Dioxide 20 L (22-30) mmol/L Lactic Acid 0.50 L (0.7-2.0) mmol/L Calcium 8.3 L (8.4-10.2) mg/dL
[2018-08-04] MEDS ORDERED: FLONASE NS PRN (10:00)
[2018-08-04] MEDS: VANCOMYCIN 1,250 MG in NACL 0.9% 250ML 250 ML IV SCH (11:36)
--- NOTE | 2018-08-04 13:50 | Progress Note ---
Assessment and Plan Assessment and plan: Sepsis secondary to cellulitis ID suspected necrotizing cellulitis - Likely due to necrotizing cellulitis of the left leg - Evidenced by tachycardia, Lactic acidosis and leukocytosis - Patient is on IV vanc, meroprnem and clindamycin, IV fluid - Doppler negative, stat CT of the left leg ordered - ID consult placed Patient is sluggish to answer questions - I don't know if it is her baseline - CT head is negative - Patient said her confusion is due to her psychiatric condition Depression, bipolar disorder, schizophrenia - Continue home medications Fibromyalgia: - Pain control - Continue home medications Lactic Acidosis - resolved with IV fluids patient has a lot of psych and seizure medications - Resume home medications DVT prophylaxis - On heparin Disposition - Transfer to MICU for close monitoring Prognosis; Guarded History Interval history: Patient was seen and evaluated this morning, patient was complaining severe pain all over had body, she was complaining swelling and blisters on the left leg. patient is very sluggish to answer questions that are asked and oriented to self and place. Not oriented to time. Hospitalist Physical - Physical exam Narrative exam: Not in cardiopulmonary distress. The patient is obese. Vital signs as documented. Head exam is unremarkable. No scleral icterus . Neck is without jugular venous distension, thyromegaly, or carotid bruits. Lungs are clear to auscultation. Cardiac exam reveals regular rate and Rhythm. First and second heart sounds normal. No murmurs, rubs or gallops. Abdominal exam reveals normal bowel sounds, no masses, no organomegaly and no aortic enlargement. Extremities swelling, erythema and tenderness of the left leg. Blisters on the left Achilles area, The blisters in the popliteal area are denuded. 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 No focal weakness. - Constitutional Vitals: Temp Pulse Resp BP Pulse Ox 98.0 F 100 H 20 107/68 97 08/04/18 12:14 08/04/18 12:14 08/04/18 12:14 08/04/18 12:14 08/04/18 12:14 General appearance: Present: mild distress Results - Labs CBC & Chem 7: 08/04/18 07:44 08/04/18 07:44 Labs: Laboratory Last Values WBC 14.9 K/mm3 (4.5-11.0) H 08/04/18 07:44 RBC 3.77 M/mm3 (3.65-5.03) 08/04/18 07:44 Hgb 11.5 gm/dl (10.1-14.3) 08/04/18 07:44 Hct 34.9 % (30.3-42.9) 08/04/18 07:44 MCV 93 fl (79-97) 08/04/18 07:44 MCH 31 pg (28-32) 08/04/18 07:44 MCHC 33 % (30-34) 08/04/18 07:44 RDW 15.2 % (13.2-15.2) 08/04/18 07:44 Plt Count 225 K/mm3 (140-440) 08/04/18 07:44 Lymph % (Auto) 8.6 % (13.4-35.0) L 08/04/18 07:44 [place] % (Auto) 9.1 % (0.0-7.3) H 08/04/18 07:44 Eos % (Auto) 0.3 % (0.0-4.3) 08/04/18 07:44 Baso % (Auto) 0.6 % (0.0-1.8) 08/04/18 07:44 Lymph # 1.3 K/mm3 (1.2-5.4) 08/04/18 07:44 [place] # 1.4 K/mm3 (0.0-0.8) H 08/04/18 07:44 Eos # 0.0 K/mm3 (0.0-0.4) 08/04/18 07:44 Baso # 0.1 K/mm3 (0.0-0.1) 08/04/18 07:44 Seg Neutrophils % 81.4 % (40.0-70.0) H 08/04/18 07:44 Seg Neutrophils # 12.1 K/mm3 (1.8-7.7) H 08/04/18 07:44 ESR 4 mm/Hr (0-20) 08/02/18 Unknown Sodium 136 mmol/L (137-145) L 08/04/18 07:44 Potassium 3.3 mmol/L (3.6-5.0) L D 08/04/18 07:44 Chloride 100.8 mmol/L (98-107) 08/04/18 07:44 Carbon Dioxide 20 mmol/L (22-30) L 08/04/18 07:44 Anion Gap 19 mmol/L 08/04/18 07:44 BUN 13 mg/dL (7-17) 08/04/18 07:44 Creatinine 0.9 mg/dL (0.7-1.2) 08/04/18 07:44 Estimated GFR > 60 ml/min 08/04/18 07:44 BUN/Creatinine Ratio 14 % 08/04/18 07:44 Glucose 91 mg/dL (65-100) 08/04/18 07:44 Lactic Acid 0.50 mmol/L (0.7-2.0) L 08/03/18 16:18 Calcium 8.3 mg/dL (8.4-10.2) L 08/04/18 07:44 Total Bilirubin 0.40 mg/dL (0.1-1.2) 08/02/18 Unknown AST 336 units/L (5-40) H 08/02/18 Unknown ALT 44 units/L (7-56) 08/02/18 Unknown Alkaline Phosphatase 109 units/L (35-129) 08/02/18 Unknown Total Creatine Kinase 605 units/L (30-135) H 08/02/18 Unknown CK-MB (CK-2) 285.3 ng/mL (0.0-4.0) H 08/02/18 Unknown CK-MB (CK-2) Rel Index 47.1 (0-4) H 08/02/18 Unknown Troponin T < 0.010 ng/mL (0.00-0.029) 08/02/18 Unknown C-Reactive Protein 7.40 mg/dL (0.00-1.30) H 08/02/18 14:54 Total Protein 7.9 g/dL (6.3-8.2) 08/02/18 Unknown Albumin 4.7 g/dL (3.9-5) 08/02/18 Unknown Albumin/Globulin Ratio 1.5 % 08/02/18 Unknown HCG, Qual Negative (Negative) 08/02/18 Unknown Urine Color [place] (Yellow) 08/02/18 10:24 Urine Turbidity Cloudy (Clear) 08/02/18 10:24 Urine pH 6.0 (5.0-7.0) 08/02/18 10:24 Ur Specific [place] 1.020 (1.003-1.030) 08/02/18 10:24 Urine Protein 100 mg/dl mg/dL (Negative) 08/02/18 10:24 Urine Glucose (UA) Neg mg/dL (Negative) 08/02/18 10:24 Urine Ketones Neg mg/dL (Negative) 08/02/18 10:24 Urine Blood Lg (Negative) 08/02/18 10:24 Urine Nitrite Neg (Negative) 08/02/18 10:24 Urine Bilirubin Neg (Negative) 08/02/18 10:24 Urine Urobilinogen 2.0 mg/dL (<2.0) 08/02/18 10:24 Ur Leukocyte Esterase Neg (Negative) 08/02/18 10:24 Urine WBC (Auto) 7.0 /HPF (0.0-6.0) H 08/02/18 10:24 Urine RBC (Auto) 3.0 /HPF (0.0-6.0) 08/02/18 10:24 U Epithel Cells (Auto) 4.0 /HPF (0-13.0) 08/02/18 10:24 Urine Mucus 2+ /HPF 08/02/18 10:24 Urine HCG, Qual Negative (Negative) 08/02/18 10:24 Urine Opiates Screen Presumptive negative 08/02/18 10:33 Urine Methadone Screen Presumptive negative 08/02/18 10:33 Ur Barbiturates Screen Presumptive negative 08/02/18 10:33 Ur Phencyclidine Scrn Presumptive negative 08/02/18 10:33 Ur Amphetamines Screen Presumptive negative 08/02/18 10:33 U Benzodiazepines Scrn Presumptive positive 08/02/18 10:33 Urine Cocaine Screen Presumptive negative 08/02/18 10:33 U Marijuana (THC) Screen Presumptive negative 08/02/18 10:33 Drugs of Abuse Note Disclamer 08/02/18 10:33
[2018-08-04] MEDS: MERREM 1,000 MG in NACL 0.9% 100 ML IV SCH (16:50)
--- NOTE | 2018-08-04 16:58 | Consultation ---
History of Present Illness Consult date: 08/04/18 Reason for consult: wound care Requesting physician: GUMARO MONTALVO Chief complaint: left leg pain - History of present illness History of present illness: 42yo F with h/o fibromyalgia and rheumatoid arthritis presented with left leg pain, swelling and redness after suffering a dog scratch a number of days earlier. She was admitted for resuscitation and IV Abx. General surgery was asked to see the patient today due to concerns of possible necrotizing fasciitis. Patient is unable to say for sure if the leg is getting better or getting worse. She says that she has good days and bad days. She has a lot of pain and that leg. She also has a lot of chronic pain. She does not recall where on the leg she was scratched. She does believe the skin was broken. Past History Past Medical History: other (Fibromyalgia, rheumatoid arthritis, asthma) Past Surgical History: Other (left ankle reconstruction) Social history: single. denies: smoking, alcohol abuse, prescription drug abuse Family history: hypertension Medications and Allergies Allergies Allergy/AdvReac Type Severity Reaction Status Date / Time morphine Allergy Rash Verified 08/02/18 06:49 Home Medications Medication Instructions Recorded Confirmed Last Taken Type Clindamycin [Clindamycin CAP] 300 mg PO Q8H #21 cap 08/02/18 Unknown Rx Acyclovir 1 tab PO BID 08/03/18 08/03/18 Unknown History Buspirone HCl 15 mg PO TID 08/03/18 08/03/18 08/01/18 History Doxepin 50 mg PO HS 08/03/18 08/03/18 08/01/18 History Doxepin 100 mg PO HS 08/03/18 08/03/18 07/31/18 History Fluticasone 1 puff AU DAILY PRN 08/03/18 08/03/18 08/01/18 History Haloperidol 5 mg PO HS PRN 08/03/18 08/03/18 Unknown History LaMICtal 100 tab PO BID 08/03/18 08/03/18 08/01/18 History Lyrica 150 mg PO TID 08/03/18 08/03/18 08/01/18 History Topiramate 200 mg PO BID 08/03/18 08/03/18 08/01/18 History Xanax 1 mg PO TID 08/03/18 08/03/18 Unknown History Ziprasidone 80 mg PO BID 08/03/18 08/03/18 Unknown History traZODone 150 mg PO DAILY 08/03/18 08/03/18 08/01/18 History Active Meds: Active Medications Acetaminophen (Tylenol) 650 mg PO Q4H PRN PRN Reason: Pain MILD(1-3)/Fever >100.5/GRAY Last Admin: 08/04/18 06:10 Dose: 650 mg Documented by: Albuterol (Proventil) 2.5 mg IH Q4HRT PRN PRN Reason: Shortness Of Breath Alprazolam (Xanax) 1 mg PO TID [facility] Last Admin: 08/04/18 14:50 Dose: Not Given Documented by: Buspirone HCl (Buspar) 15 mg PO TID [facility] Last Admin: 08/04/18 14:13 Dose: 15 mg Documented by: Doxepin HCl (Sinequan) 50 mg PO HS [facility] Last Admin: 08/03/18 22:02 Dose: 50 mg Documented by: Doxepin HCl (Sinequan) 100 mg PO QHS [facility] Last Admin: 08/03/18 22:02 Dose: 100 mg Documented by: Famotidine (Pepcid) 20 mg PO BID [facility] Last Admin: 08/04/18 09:31 Dose: 20 mg Documented by: Fluticasone Propionate (Flonase) 50 mcg NS QDAY PRN PRN Reason: CONGESTION Haloperidol (Haldol) 5 mg PO HS PRN PRN Reason: Agitation Heparin Sodium (Porcine) (Heparin) 5,000 unit SUB-Q Q8HR [facility] Last Admin: 08/04/18 13:58 Dose: 5,000 unit Documented by: Hydromorphone HCl (Dilaudid) 0.5 mg IV Q3H PRN PRN Reason: Pain , Severe (7-10) Last Admin: 08/03/18 22:15 Dose: 0.5 mg Documented by: Sodium Chloride (Nacl 0.45% 1000 Ml) 1,000 mls @ 75 mls/hr IV DIRECT [facility] Last Admin: 08/03/18 03:06 Dose: 75 mls/hr Documented by: Vancomycin HCl 1,250 mg/ (Sodium Chloride) 275 mls @ 166.667 mls/hr IV Q12H [facility] Last Admin: 08/04/18 11:36 Dose: 166.667 mls/hr Documented by: Clindamycin HCl (Cleocin 900 Mg/50 Ml) 900 mg in 50 mls @ 100 mls/hr IV Q8HR [facility]; Protocol Meropenem 1,000 mg/ Sodium (Chloride) 100 mls @ 100 mls/hr IV Q8HR [facility]; Protocol Last Admin: 08/04/18 16:50 Dose: 100 mls/hr Documented by: Lamotrigine (Lamictal) 100 mg PO BID [facility] Last Admin: 08/04/18 09:31 Dose: 100 mg Documented by: Ondansetron HCl (Zofran) 4 mg IV Q8H PRN PRN Reason: Nausea And Vomiting Oxycodone/Acetaminophen (Percocet 5/325) 2 tab PO Q6H PRN PRN Reason: Pain, Moderate (4-6) Last Admin: 08/03/18 10:45 Dose: 2 tab Documented by: Pregabalin (Lyrica) 150 mg PO TID [facility] Last Admin: 08/04/18 14:13 Dose: 150 mg Documented by: Sodium Chloride (Sodium Chloride Flush Syringe 10 Ml) 10 ml IV BID [facility] Last Admin: 08/04/18 09:41 Dose: Not Given Documented by: Sodium Chloride (Sodium Chloride Flush Syringe 10 Ml) 10 ml IV PRN PRN PRN Reason: LINE FLUSH Topiramate (Topamax) 200 mg PO BID [facility] Last Admin: 08/04/18 09:29 Dose: 200 mg Documented by: Trazodone HCl (Desyrel) 150 mg PO QHS [facility] Last Admin: 08/03/18 22:02 Dose: 150 mg Documented by: Ziprasidone (Geodon) 80 mg PO BID [facility] Last Admin: 08/04/18 09:28 Dose: 80 mg Documented by: Review of Systems - Constitutional fever, chronic pain, no chills - Cardiovascular no chest pain - Respiratory no cough - Gastrointestinal no abdominal pain - Muskuloskeletal left: knee pain, knee swelling, ankle pain, ankle swelling, foot pain, foot swelling - Integumentary redness, blisters Exam Vital Signs Temp Pulse Resp BP Pulse Ox 98.6 F 98 H 18 150/84 95 08/02/18 06:25 08/02/18 06:25 08/02/18 06:25 08/02/18 06:25 08/02/18 06:25 - General physical appearance Positive: no distress, no pain - Respiratory Positive: normal expansion, normal respiratory effort, clear to auscultation - Cardiovascular Rhythm: regular - Abdomen Abdomen: Present: soft. Absent: tender - Psychiatric Psychiatric: depressed Results - Labs 08/04/18 07:44 08/04/18 07:44 Abnormal lab results 08/04/18 08/04/18 Range/Units 07:44 07:44 WBC 14.9 H (4.5-11.0) K/mm3 Lymph % (Auto) 8.6 L (13.4-35.0) % [place] % (Auto) 9.1 H (0.0-7.3) % [place] # 1.4 H (0.0-0.8) K/mm3 Seg Neutrophils % 81.4 H (40.0-70.0) % Seg Neutrophils # 12.1 H (1.8-7.7) K/mm3 Sodium 136 L (137-145) mmol/L Potassium 3.3 L D (3.6-5.0) mmol/L Carbon Dioxide 20 L (22-30) mmol/L Calcium 8.3 L (8.4-10.2) mg/dL Diabetes panel 08/04/18 Range/Units 07:44 Sodium 136 L (137-145) mmol/L Potassium 3.3 L D (3.6-5.0) mmol/L Chloride 100.8 (98-107) mmol/L Carbon Dioxide 20 L (22-30) mmol/L BUN 13 (7-17) mg/dL Creatinine 0.9 (0.7-1.2) mg/dL Glucose 91 (65-100) mg/dL Calcium 8.3 L (8.4-10.2) mg/dL Calcium panel 08/04/18 Range/Units 07:44 Calcium 8.3 L (8.4-10.2) mg/dL Pituitary panel 08/04/18 Range/Units 07:44 Sodium 136 L (137-145) mmol/L Potassium 3.3 L D (3.6-5.0) mmol/L Chloride 100.8 (98-107) mmol/L Carbon Dioxide 20 L (22-30) mmol/L BUN 13 (7-17) mg/dL Creatinine 0.9 (0.7-1.2) mg/dL Glucose 91 (65-100) mg/dL Calcium 8.3 L (8.4-10.2) mg/dL Adrenal panel 08/04/18 Range/Units 07:44 Sodium 136 L (137-145) mmol/L Potassium 3.3 L D (3.6-5.0) mmol/L Chloride 100.8 (98-107) mmol/L Carbon Dioxide 20 L (22-30) mmol/L BUN 13 (7-17) mg/dL Creatinine 0.9 (0.7-1.2) mg/dL Glucose 91 (65-100) mg/dL Calcium 8.3 L (8.4-10.2) mg/dL - Imaging Additional studies: CT LLE Assessment and Plan - Patient Problems (1) Cellulitis Current Visit: Yes Status: Acute Qualifiers: Site of cellulitis: extremity Site of cellulitis of extremity: lower extremity Laterality: left Qualified Code(s): L03.116 - Cellulitis of left lower limb Plan to address problem: There is concern for possible necrotizing fasciitis. Unfortunately, patient is unable to give reliable history. I am seeing her for the 1st time so I do not have any prior exams for comparison. The CT scan only shows cellulitis (I reviewed the images with Dr. Shankar). However, that does not exclude the possibility of an early necrotizing process. I discussed the pros and cons of going to surgery today versus observation. Questions were answered. She decided to go for surgery today. I think that is a reasonable choice. Procedure, risks, benefits were discussed. Consent was obtained. We will go for left leg exploration tonight. Time=60min
[2018-08-04] MEDS: CLEOCIN 900 MG/50 mL 900 MG/50 ML BAG IV SCH (18:10)
[2018-08-04] MEDS ORDERED: SUBLIMAZE ONE (18:23)
[2018-08-04] MEDS ORDERED: DIPRIVAN 10 MG/ML IV ONE (18:23)
--- NOTE | 2018-08-04 18:29 | Anesthesia Consultation ---
Anesthesia Consult and Med Hx Date of service: 08/04/18 - Airway Anesthetic Teeth Evaluation: Good ROM Head & Neck: Adequate Mental/Hyoid Distance: Adequate Mallampati Class: Class III Intubation Access Assessment: Possibly Difficult - Pulmonary Exam CTA: Yes - Cardiac Exam Cardiac Exam: RRR - Pre-Operative Health Status ASA Pre-Surgery Classification: ASA3 Proposed Anesthetic Plan: General - Pulmonary Hx Asthma: Yes Hx Respiratory Symptoms: No Home Oxygen Therapy: No - Cardiovascular System Hx Hypertension: No Hx Heart Attack/AMI: No - Central Nervous System Hx Seizures: No CVA: No Hx Psychiatric Problems: Yes (depression, schizophrenia, bipolar d/o) - Endocrine Hx Renal Disease: No Hx Liver Disease: No Hx Insulin Dependent Diabetes: No Hx Non-Insulin Dependent Diabetes: No Hx Thyroid Disease: No - Hematic Hx Anemia: Yes - Other Systems Hx Obesity: Yes - Additional Comments Anesthesia Medical History Comments: PMH asthma, fibromyalgia, depression, bipol ar d/o, and schizophrenia presenting with sepsis 2/2 LLE cellulitis scheduled for I&D. Prolonged QTc 557 on admission EKG. NPO solids >8hrs, liquids (non- particulate juice) today 1400.
[2018-08-04] MEDS ORDERED: DILAUDID IV PRN (19:01)
--- NOTE | 2018-08-04 19:01 | Anesthesia Day of Surgery ---
Anesthesia Day of Surgery - Day of Surgery Patient Examined: Yes Patient H&P Reviewed: Yes Patient is NPO: Yes
[2018-08-04] MEDS ORDERED: NACL 0.9% 1000 ML 1,000 ML ONE (19:07)
[2018-08-04] MEDS ORDERED: NACL 0.9% IR ONE (19:15)
[2018-08-04] MEDS ORDERED: DECADRON ONE (19:35)
--- NOTE | 2018-08-04 20:09 | Post Operative Note ---
Date of procedure: 08/04/18 (dictation:[id number]) Pre-op diagnosis: cellulitis. Possible necrotizing fasciitis Post-op diagnosis: other (cellulitis) Findings: normal fascia. subcutaneous tissue edematous, but otherwise completely normal Procedure: Left leg exploration Anesthesia: GETA Surgeon: TONI MOORE Estimated blood loss: minimal Pathology: list (2 sets of culture swabs and 2 tissue specimens for culture) Specimen disposition: to lab Condition: stable Disposition: PACU
--- NOTE | 2018-08-04 20:59 | Post Anesthesia Evaluation ---
- Post Anesthesia Evaluation Patient Participated: Yes Airway Patent: Yes Stable Respiratory Function: Yes Nausea/Vomiting: No Temp > 96.8F: Yes Pain Manageable: Yes Adequeate Hydration: Yes Anesthesia Complications: No
[2018-08-05] MEDS: MERREM 1,000 MG in NACL 0.9% 100 ML IV SCH ×4 (01:09→22:09)
[2018-08-05] MEDS: PEPCID PO SCH ×3 (01:34→22:20)
[2018-08-05] MEDS: GEODON PO SCH ×3 (01:35→22:18)
[2018-08-05] MEDS: SINEquan PO SCH ×4 (01:36→22:33)
[2018-08-05] MEDS: LYRICA PO SCH ×4 (01:37→22:32)
[2018-08-05] MEDS: XANAX PO SCH ×4 (01:38→22:16)
[2018-08-05] MEDS: BUSPAR PO SCH ×4 (01:38→22:13)
[2018-08-05] MEDS: TOPAMAX PO SCH ×3 (01:38→22:23)
[2018-08-05] MEDS: PERCOCET 5/325 PO PRN ×2 (01:47→22:07)
[2018-08-05] MEDS: VANCOMYCIN 1,250 MG in NACL 0.9% 250ML 250 ML IV SCH ×2 (01:50→12:53)
[2018-08-05] MEDS: HEPARIN SUB-Q SCH ×4 (01:55→22:19)
[2018-08-05] MEDS: CLEOCIN 900 MG/50 mL 900 MG/50 ML BAG IV SCH ×4 (04:28→22:04)
[2018-08-05 05:59] LABS: Hematocrit 33.5 % (30.3-42.9); Hemoglobin 11.2 gm/dl (10.1-14.3); Mean Corpuscular HGB Conc 33 % (30-34); Mean Corpuscular Volume 93 fl (79-97); Platelet Count 224 K/mm3 (140-440); Red Blood Count 3.58 M/mm3 (3.65-5.03)
[2018-08-05] MEDS: LaMICtal PO SCH ×3 (06:19→22:20)
[2018-08-05] MEDS: NACL 0.45% 1000 ML 1,000 ML IV SCH (06:20)
[2018-08-05] MEDS: SODIUM CHLORIDE FLUSH SYRINGE 10 ML IV SCH ×3 (06:26→22:24)
[2018-08-05 06:40] LABS: Basophils % (Manual) 0 % (0.0-1.8); Eosinophils % (Manual) 0 % (0.0-4.3); Total Cells Counted 100
[2018-08-05 06:40] LABS: BUN/Creatinine Ratio 14; Blood Urea Nitrogen 13 mg/dL (7-17); Calcium 8.6 mg/dL (8.4-10.2); Hemolysis Index 48
[2018-08-05 06:41] LABS: Anisocytosis 1+; Helmet Cells Rare; Ovalocytes Few
[2018-08-05] MEDS: DESYREL PO SCH ×2 (07:05→22:17)
--- NOTE | 2018-08-05 12:24 | Progress Note ---
Assessment and Plan - Patient Problems (1) Cellulitis Current Visit: Yes Status: Acute Qualifiers: Site of cellulitis: extremity Site of cellulitis of extremity: lower extremity Laterality: left Qualified Code(s): L03.116 - Cellulitis of left lower limb Plan to address problem: Pt stable. s/p LLE exploration and biopsy 08/04/18 - POD#1. No evidence found in OR of necrotizing fasciitis. no purulent fluid. Only edema seen. Cultures have not grown anything yet. Will do routine wound care of surgical wounds for now. Please call with questions. Subjective Date of service: 08/05/18 Patient Reports: Positive: no new complaints Objective Vital Signs - 12hr 08/05/18 08/05/18 08/05/18 03:14 03:20 03:30 Temperature Pulse Rate 78 75 73 Respiratory 15 15 15 Rate Blood Pressure O2 Sat by Pulse 99 99 99 Oximetry 08/05/18 08/05/18 08/05/18 03:40 03:50 04:00 Temperature 97.4 F L Pulse Rate 75 75 74 Respiratory 17 18 15 Rate Blood Pressure O2 Sat by Pulse 99 99 99 Oximetry 08/05/18 08/05/18 08/05/18 04:10 04:20 04:30 Temperature Pulse Rate 73 73 72 Respiratory 17 15 15 Rate Blood Pressure O2 Sat by Pulse 99 100 99 Oximetry 08/05/18 08/05/18 08/05/18 04:40 04:50 05:00 Temperature Pulse Rate 71 69 69 Respiratory 15 15 15 Rate Blood Pressure 105/63 105/63 O2 Sat by Pulse 99 100 100 Oximetry 08/05/18 08/05/18 08/05/18 05:10 05:20 05:30 Temperature Pulse Rate 68 68 67 Respiratory 15 16 16 Rate Blood Pressure 101/63 101/63 101/63 O2 Sat by Pulse 100 100 100 Oximetry 08/05/18 08/05/18 08/05/18 05:40 05:50 06:00 Temperature Pulse Rate 68 66 67 Respiratory 16 16 15 Rate Blood Pressure 101/63 101/63 101/63 O2 Sat by Pulse 100 100 100 Oximetry 08/05/18 08/05/18 08/05/18 06:10 06:20 06:30 Temperature Pulse Rate 67 67 73 Respiratory 15 15 12 Rate Blood Pressure 101/63 101/63 101/63 O2 Sat by Pulse 100 100 100 Oximetry 08/05/18 08/05/18 08/05/18 06:40 06:50 07:00 Temperature Pulse Rate 66 66 66 Respiratory 14 13 13 Rate Blood Pressure 101/63 101/63 101/63 O2 Sat by Pulse 100 100 100 Oximetry 08/05/18 08/05/18 08/05/18 07:10 07:21 07:31 Temperature Pulse Rate 66 65 66 Respiratory 13 14 14 Rate Blood Pressure 100/63 101/63 100/63 O2 Sat by Pulse 99 99 99 Oximetry 08/05/18 08/05/18 08/05/18 07:41 07:51 08:00 Temperature Pulse Rate 66 67 65 Respiratory 13 13 14 Rate Blood Pressure 100/63 100/63 99/64 O2 Sat by Pulse 99 99 99 Oximetry - General physical appearance no distress, no pain, other (appears very sedated) - Respiratory normal expansion, normal respiratory effort - Integumentary other (serous drainage on dressing. ) - Labs 08/05/18 05:23 08/05/18 Unknown Diabetes panel 08/05/18 Range/Units Unknown Sodium 139 (137-145) mmol/L Potassium 3.8 (3.6-5.0) mmol/L Chloride 105.2 (98-107) mmol/L Carbon Dioxide 20 L (22-30) mmol/L BUN 13 (7-17) mg/dL Creatinine 0.9 (0.7-1.2) mg/dL Glucose 123 H (65-100) mg/dL Calcium 8.6 (8.4-10.2) mg/dL Calcium panel 08/05/18 Range/Units Unknown Calcium 8.6 (8.4-10.2) mg/dL Pituitary panel 08/05/18 Range/Units Unknown Sodium 139 (137-145) mmol/L Potassium 3.8 (3.6-5.0) mmol/L Chloride 105.2 (98-107) mmol/L Carbon Dioxide 20 L (22-30) mmol/L BUN 13 (7-17) mg/dL Creatinine 0.9 (0.7-1.2) mg/dL Glucose 123 H (65-100) mg/dL Calcium 8.6 (8.4-10.2) mg/dL Adrenal panel 08/05/18 Range/Units Unknown Sodium 139 (137-145) mmol/L Potassium 3.8 (3.6-5.0) mmol/L Chloride 105.2 (98-107) mmol/L Carbon Dioxide 20 L (22-30) mmol/L BUN 13 (7-17) mg/dL Creatinine 0.9 (0.7-1.2) mg/dL Glucose 123 H (65-100) mg/dL Calcium 8.6 (8.4-10.2) mg/dL
--- NOTE | 2018-08-05 14:37 | Progress Note ---
Assessment and Plan Assessment and plan: The high probability of a clinically significant, sudden or life threatening deterioration of the [] system(s) required my full and direct attention, intervention and personal management. The aggregate critical care time was [] minutes. This time is in addition to time spent performing reported procedures but includes the following: [x] Data Review and interpretation [x] Patient assessment and monitoring of vital signs x[x] Documentation [x] Medication orders and management Total Time Spent with Patient (Minutes): 32 - Patient Problems (1) Bilateral lower extremity pain Current Visit: Yes Status: Acute Plan to address problem: Secondary to cellulitis see below (2) Cellulitis Current Visit: Yes Status: Acute Qualifiers: Site of cellulitis: extremity Site of cellulitis of extremity: lower extremity Laterality: left Qualified Code(s): L03.116 - Cellulitis of left lower limb Plan to address problem: Patient status post exploration of lower extremity wound. No evidence of necrotizing fasciitis on exam. Continue antibiotics vancomycin and meropenem and clindamycin. Followed by ID also provide local wound care. (3) Fibromyalgia Current Visit: Yes Status: Acute Plan to address problem: Continue antidepressant. Muscle relaxant. (4) Sepsis Current Visit: Yes Status: Acute Qualifiers: Sepsis type: sepsis due to unspecified organism Qualified Code(s): A41.9 - Sepsis, unspecified organism Plan to address problem: Into current IV antibiotics secondary to left lower extremity cellulitis. History Interval history: Patient pain improved resting comfortably. Poor historian slow response. Unsure of baseline. Hospitalist Physical - Constitutional Vitals: Temp Pulse Resp BP Pulse Ox 97.4 F L 65 14 99/64 99 08/05/18 04:00 08/05/18 08:00 08/05/18 08:00 08/05/18 08:00 08/05/18 08:00 General appearance: Present: no acute distress - EENT Eyes: Present: PERRL, EOM intact. Absent: scleral icterus, conjunctival injection, exopthalmos ENT: hearing intact, clear oral mucosa, dentition normal, poor dentition, no hearing decreased, no oropharyngeal erythema, no thrush, no ulcerations - Neck Neck: Present: supple, normal ROM - Respiratory Respiratory: bilateral: CTA - Cardiovascular Rhythm: regular - Extremities Extremity abnormal: other (cellulitis leg bandaged status post surgical exploration with biopsy) - Abdominal General gastrointestinal: soft, non-tender, non-distended, normal bowel sounds - Psychiatric Psychiatric: cooperative, other (poor insight into disease poor judgment.) - Neurologic Neurologic: CNII-XII intact, no focal deficits, moves all extremities Results - Labs CBC & Chem 7: 08/05/18 05:23 08/05/18 Unknown Labs: Laboratory Last Values WBC 13.9 K/mm3 (4.5-11.0) H 08/05/18 05:23 RBC 3.58 M/mm3 (3.65-5.03) L 08/05/18 05:23 Hgb 11.2 gm/dl (10.1-14.3) 08/05/18 05:23 Hct 33.5 % (30.3-42.9) 08/05/18 05:23 MCV 93 fl (79-97) 08/05/18 05:23 MCH 31 pg (28-32) 08/05/18 05:23 MCHC 33 % (30-34) 08/05/18 05:23 RDW 15.0 % (13.2-15.2) 08/05/18 05:23 Plt Count 224 K/mm3 (140-440) 08/05/18 05:23 Lymph % (Auto) 8.6 % (13.4-35.0) L 08/04/18 07:44 [place] % (Auto) 9.1 % (0.0-7.3) H 08/04/18 07:44 Eos % (Auto) 0.3 % (0.0-4.3) 08/04/18 07:44 Baso % (Auto) 0.6 % (0.0-1.8) 08/04/18 07:44 Lymph # 1.3 K/mm3 (1.2-5.4) 08/04/18 07:44 [place] # 1.4 K/mm3 (0.0-0.8) H 08/04/18 07:44 Eos # 0.0 K/mm3 (0.0-0.4) 08/04/18 07:44 Baso # 0.1 K/mm3 (0.0-0.1) 08/04/18 07:44 Add Manual Diff Complete 08/05/18 05:23 Total Counted 100 08/05/18 05:23 Seg Neutrophils % Field Administrative Assistant 03/02/19 05:23 Seg Neuts % (Manual) 95.0 % (40.0-70.0) H 08/05/18 05:23 Band Neutrophils % 0 % 08/05/18 05:23 Lymphocytes % (Manual) 3.0 % (13.4-35.0) L 08/05/18 05:23 Reactive Lymphs % (Man) 0 % 08/05/18 05:23 Monocytes % (Manual) 2.0 % (0.0-7.3) 08/05/18 05:23 Eosinophils % (Manual) 0 % (0.0-4.3) 08/05/18 05:23 Basophils % (Manual) 0 % (0.0-1.8) 08/05/18 05:23 Metamyelocytes % 0 % 08/05/18 05:23 Myelocytes % 0 % 08/05/18 05:23 Promyelocytes % 0 % 08/05/18 05:23 Blast Cells % 0 % 08/05/18 05:23 Nucleated RBC % Not Reportable 08/05/18 05:23 Seg Neutrophils # 12.1 K/mm3 (1.8-7.7) H 08/04/18 07:44 Seg Neutrophils # Man 13.2 K/mm3 (1.8-7.7) H 08/05/18 05:23 Band Neutrophils # 0.0 K/mm3 08/05/18 05:23 Lymphocytes # (Manual) 0.4 K/mm3 (1.2-5.4) L 08/05/18 05:23 Abs React Lymphs (Man) 0.0 K/mm3 08/05/18 05:23 Monocytes # (Manual) 0.3 K/mm3 (0.0-0.8) 08/05/18 05:23 Eosinophils # (Manual) 0.0 K/mm3 (0.0-0.4) 08/05/18 05:23 Basophils # (Manual) 0.0 K/mm3 (0.0-0.1) 08/05/18 05:23 Metamyelocytes # 0.0 K/mm3 08/05/18 05:23 Myelocytes # 0.0 K/mm3 08/05/18 05:23 Promyelocytes # 0.0 K/mm3 08/05/18 05:23 Blast Cells # 0.0 K/mm3 08/05/18 05:23 WBC Morphology Not Reportable 08/05/18 05:23 Hypersegmented Neuts Not Reportable 08/05/18 05:23 Hyposegmented Neuts Not Reportable 08/05/18 05:23 Hypogranular Neuts Not Reportable 08/05/18 05:23 Smudge Cells Not Reportable 08/05/18 05:23 Toxic Granulation Not Reportable 08/05/18 05:23 Toxic Vacuolation Not Reportable 08/05/18 05:23 Dohle Bodies Not Reportable 08/05/18 05:23 Pelger-Huet Anomaly Not Reportable 08/05/18 05:23 Tila Rods Not Reportable 08/05/18 05:23 Platelet Estimate Appears normal 08/05/18 05:23 Clumped Platelets Not Reportable 08/05/18 05:23 Plt Clumps, EDTA Not Reportable 08/05/18 05:23 Large Platelets Not Reportable 08/05/18 05:23 Giant Platelets Not Reportable 08/05/18 05:23 Platelet Satelliting Not Reportable 08/05/18 05:23 Plt Morphology Comment Not Reportable 08/05/18 05:23 RBC Morphology Not Reportable 08/05/18 05:23 Dimorphic RBCs Not Reportable 08/05/18 05:23 Polychromasia Not Reportable 08/05/18 05:23 Hypochromasia Not Reportable 08/05/18 05:23 Poikilocytosis Not Reportable 08/05/18 05:23 Anisocytosis 1+ 08/05/18 05:23 Microcytosis Not Reportable 08/05/18 05:23 Macrocytosis Not Reportable 08/05/18 05:23 Spherocytes Not Reportable 08/05/18 05:23 Pappenheimer Bodies Not Reportable 08/05/18 05:23 Sickle Cells Not Reportable 08/05/18 05:23 Target Cells Not Reportable 08/05/18 05:23 Tear Drop Cells Not Reportable 08/05/18 05:23 Ovalocytes Few 08/05/18 05:23 Helmet Cells Rare 08/05/18 05:23 [place] Bodies Not Reportable 08/05/18 05:23 [place] Rings Not Reportable 08/05/18 05:23 [place] Cells Not Reportable 08/05/18 05:23 Bite Cells Not Reportable 08/05/18 05:23 Crenated Cell Not Reportable 08/05/18 05:23 Elliptocytes Not Reportable 08/05/18 05:23 Acanthocytes (Spur) Not Reportable 08/05/18 05:23 Rouleaux Not Reportable 08/05/18 05:23 Hemoglobin C Crystals Not Reportable 08/05/18 05:23 Schistocytes Not Reportable 08/05/18 05:23 Malaria parasites Not Reportable 08/05/18 05:23 ESR 4 mm/Hr (0-20) 08/02/18 Unknown [place] Bodies Not Reportable 08/05/18 05:23 Hem Pathologist Commnt No 08/05/18 05:23 Sodium 139 mmol/L (137-145) 08/05/18 Unknown Potassium 3.8 mmol/L (3.6-5.0) 08/05/18 Unknown Chloride 105.2 mmol/L (98-107) 08/05/18 Unknown Carbon Dioxide 20 mmol/L (22-30) L 08/05/18 Unknown Anion Gap 18 mmol/L 08/05/18 Unknown BUN 13 mg/dL (7-17) 08/05/18 Unknown Creatinine 0.9 mg/dL (0.7-1.2) 08/05/18 Unknown Estimated GFR > 60 ml/min 08/05/18 Unknown BUN/Creatinine Ratio 14 % 08/05/18 Unknown Glucose 123 mg/dL (65-100) H 08/05/18 Unknown Lactic Acid 0.50 mmol/L (0.7-2.0) L 08/03/18 16:18 Calcium 8.6 mg/dL (8.4-10.2) 08/05/18 Unknown Total Bilirubin 0.40 mg/dL (0.1-1.2) 08/02/18 Unknown AST 336 units/L (5-40) H 08/02/18 Unknown ALT 44 units/L (7-56) 08/02/18 Unknown Alkaline Phosphatase 109 units/L (35-129) 08/02/18 Unknown Total Creatine Kinase 605 units/L (30-135) H 08/02/18 Unknown CK-MB (CK-2) 285.3 ng/mL (0.0-4.0) H 08/02/18 Unknown CK-MB (CK-2) Rel Index 47.1 (0-4) H 08/02/18 Unknown Troponin T < 0.010 ng/mL (0.00-0.029) 08/02/18 Unknown C-Reactive Protein 7.40 mg/dL (0.00-1.30) H 08/02/18 14:54 Total Protein 7.9 g/dL (6.3-8.2) 08/02/18 Unknown Albumin 4.7 g/dL (3.9-5) 08/02/18 Unknown Albumin/Globulin Ratio 1.5 % 08/02/18 Unknown HCG, Qual Negative (Negative) 08/02/18 Unknown Urine Color Lori (Yellow) 08/02/18 10:24 Urine Turbidity Cloudy (Clear) 08/02/18 10:24 Urine pH 6.0 (5.0-7.0) 08/02/18 10:24 Ur Specific [place] 1.020 (1.003-1.030) 08/02/18 10:24 Urine Protein 100 mg/dl mg/dL (Negative) 08/02/18 10:24 Urine Glucose (UA) Neg mg/dL (Negative) 08/02/18 10:24 Urine Ketones Neg mg/dL (Negative) 08/02/18 10:24 Urine Blood Lg (Negative) 08/02/18 10:24 Urine Nitrite Neg (Negative) 08/02/18 10:24 Urine Bilirubin Neg (Negative) 08/02/18 10:24 Urine Urobilinogen 2.0 mg/dL (<2.0) 08/02/18 10:24 Ur Leukocyte Esterase Neg (Negative) 08/02/18 10:24 Urine WBC (Auto) 7.0 /HPF (0.0-6.0) H 08/02/18 10:24 Urine RBC (Auto) 3.0 /HPF (0.0-6.0) 08/02/18 10:24 U Epithel Cells (Auto) 4.0 /HPF (0-13.0) 08/02/18 10:24 Urine Mucus 2+ /HPF 08/02/18 10:24 Urine HCG, Qual Negative (Negative) 08/02/18 10:24 Urine Opiates Screen Presumptive negative 08/02/18 10:33 Urine Methadone Screen Presumptive negative 08/02/18 10:33 Ur Barbiturates Screen Presumptive negative 08/02/18 10:33 Ur Phencyclidine Scrn Presumptive negative 08/02/18 10:33 Ur Amphetamines Screen Presumptive negative 08/02/18 10:33 U Benzodiazepines Scrn Presumptive positive 08/02/18 10:33 Urine Cocaine Screen Presumptive negative 08/02/18 10:33 U Marijuana (THC) Screen Presumptive negative 08/02/18 10:33 Drugs of Abuse Note Disclamer 08/02/18 10:33 - Imaging and Cardiology Chest x-ray: image reviewed Venous US: other (CT scan lower extremity)
--- NOTE | 2018-08-05 22:23 | Operative Report ---
PREOPERATIVE DIAGNOSES: 1. Cellulitis. 2. Possible necrotizing fasciitis. POSTOPERATIVE DIAGNOSIS: Cellulitis. PROCEDURES: 1. Exploration of left leg. 2. Biopsy of skin, subcutaneous tissue x 2 separate sites. ATTENDING PHYSICIAN: Sarika Ruiz MD ANESTHESIA: General. ESTIMATED BLOOD LOSS: Minimal. FLUIDS: 200 mL. FINDINGS: Edematous, but normal-appearing skin and subcutaneous tissue. The subcutaneous tissue was a very appropriate and normal yellow; however, it was very edematous. It was appropriately attached to the underlying fascia. The fascia was completely viable and intact. It had no evidence to suggest breakdown or infection. SPECIMEN: Two samples of skin and subcutaneous tissue from 2 separate wounds. DRAINS: None. COMPLICATIONS: None. DISPOSITION: Stable, transferred to Recovery Room. INDICATIONS: This is a 42-year-old female who presented days later after suffering an injury to the left leg from a dog scratch. The patient reports that she was lying on the leg thereafter for 2 days, unable to move. It is difficult to obtain a history from her to gauge whether the infection and symptoms are generally getting better or getting worse. She is unable to indicate a specific spot that hurts her more than anything else. She is unable to say where the dog scratch occurred. CT scan was done, which did not show any definitive evidence of necrotizing fasciitis. White count has been stable around 15. The patient is having low grade temperatures. Because of the extreme severity of her pain, there was appropriate concern for necrotizing fasciitis. I discussed this with her that we do not have clear cut signs on CT or on clinical exam to say that she definitely has it; however, there is enough of a concern that it would be appropriate to explore the leg and make sure there is no severe infection. We discussed options of going to surgery at the time of the initial evaluation versus observing her and then deciding later, she elected to go forward on the day of evaluation, I think it is appropriate. Procedure, risks, benefits were explained to the patient. Risks include but were not limited to infection, bleeding, pain, injury to surrounding structures, possible need for further procedures, possible negative exploration, and possible need for amputation. The patient understood and consented. OPERATIVE NOTE: The patient was brought to the operating room and placed on the table in supine position. After adequate general anesthesia was established, the patient was prepped and draped in usual sterile fashion. Antibiotics were already been given. SCDs could not be placed that would be in the operative field. Once timeout was called, I began by making a longitudinal incision on the lateral aspect of the anterior left lower leg. This is in the area that she did show extreme tenderness on exam as well as there is a significant amount of inflammation in this area on CT scan. Please note the posterior leg had no tenderness when we initially examined her, so everything appeared to be anterior. Incision was made. As expected, there was a fair amount of bleeding, most likely due to the inflamed nature of the tissue. The underlying subcutaneous tissue was completely normal other than edema. I dissected all the way down to the fascia. The fascia was completely viable and intact. I saw no evidence of any infection. The subcutaneous tissue in the surrounding area was appropriately adhered down to the fascia as it normally should be. I did not find any tracts. I did not find any adjacent areas of infection. We took a sample of the skin and subcutaneous tissue as well as culture swabs and sent that for culture. I repeated the same thing on the lateral aspect of the left foot on the dorsal surface. This was another area the dorsum of the left foot that caused her extreme pain when palpated. Therefore, I felt this may be a good target as well. We did the same thing and found the same results. The underlying subcutaneous tissue was completely normal. There was no purulent fluid, no dishwater drainage. The fascia underneath was completely intact and viable. There were no adjacent pockets. There was no tracking or no tunnels in the vicinity. We took a biopsy of the skin and subcutaneous tissue as well as culture swabs. Hemostasis was achieved with electrocautery. Wounds were thoroughly irrigated and then as a precaution, I packed them with Surgicel in case there is any delayed bleeding and then we packed the wounds with gauze. The skin was cleaned and dried. Dressings were placed. The patient tolerated procedure well. There were no complications. All counts were correct at the end of the case. JOB# [id number] QING/JACQUELIN
[2018-08-06] MEDS: VANCOMYCIN 1,250 MG in NACL 0.9% 250ML 250 ML IV SCH ×2 (00:44→12:50)
[2018-08-06] MEDS: NACL 0.45% 1000 ML 1,000 ML IV SCH ×2 (03:30→19:45)
[2018-08-06] MEDS: CLEOCIN 900 MG/50 mL 900 MG/50 ML BAG IV SCH ×2 (05:50→14:28)
[2018-08-06] MEDS: HEPARIN SUB-Q SCH ×3 (05:50→23:22)
[2018-08-06] MEDS: MERREM 1,000 MG in NACL 0.9% 100 ML IV SCH ×3 (05:50→22:21)
[2018-08-06 06:00] LABS: Basophils % (Auto) 0.2 % (0.0-1.8); Eosinophils # (Auto) 0.1 K/mm3 (0.0-0.4); Eosinophils % (Auto) 0.7 % (0.0-4.3); Hematocrit 34.3 % (30.3-42.9); Hemoglobin 11.2 gm/dl (10.1-14.3); Lymphocytes # (Auto) 1.1 K/mm3 (1.2-5.4); Lymphocytes % (Auto) 7.8 % (13.4-35.0); Mean Corpuscular HGB Conc 33 % (30-34); Mean Corpuscular Volume 97 fl (79-97); Monocytes # (Auto) 2.1 K/mm3 (0.0-0.8); Monocytes % (Auto) 15.8 % (0.0-7.3); Platelet Count 242 K/mm3 (140-440); Red Blood Count 3.53 M/mm3 (3.65-5.03); Red Cell Distribution Width 15.9 % (13.2-15.2)
[2018-08-06 06:41] LABS: BUN/Creatinine Ratio 19; Blood Urea Nitrogen 17 mg/dL (7-17); Calcium 8.4 mg/dL (8.4-10.2); Hemolysis Index 16
[2018-08-06] MEDS: XANAX PO SCH ×3 (08:15→20:21)
[2018-08-06] MEDS: LYRICA PO SCH ×3 (08:15→21:19)
--- NOTE | 2018-08-06 09:56 | Progress Note ---
Assessment and Plan Cultures: 08/02/2018 Urine: 10-100,000 for mixed culture > 2 organisms 08/02/2018 Blood:no growth to date 08/04/18: Left foot anaerobic: no growth to date 08/04/18: Left leg anaerobic culture: no growth to date 08/04/18: Surgical Biopsy left leg: no growth to date 08/04/18: Surgical left leg: no growth to date A/P: 42-year-old female with a past medical history of Fibromyalgia, noncompliant with rheumatologic medicaiton, Asthma, obesity and medication noncompliance, admitted with: 1. SIRS vs Sepsis: Improved, evidenced by leukocytois, tachycardia and elevated lactic acid, etiology most likely LLE cellulites, +/- Fibromyalgia, receiving steroid therapy, no fevers. Chest xray shows no consolidation, U/A with pyuria, urine culture shows 10-100,000 for mixed culture > 2 organisms, Blood cultures were drawn and are pending. Currently being treated with cefepime. Discontnue Cefepime, start Vancomycin and Unasyn. 2. Dog Bite Associated Cellulitis LLE versus necrotizing infection: Unable to exam at beside due to extreme tenderness, LLE edematous and warm, admission pictures show blistering to the left lower limb and ankle. Admits to dog bite 2 days ago. DDX Pasteurella/Capnocytophaga/MRSA Arterial Doppler: No evidence of deep venous thrombosis of the right lower ex tremity. Poor visualization of the left posterior tibial vein, and peroneal vein at the and deep venous thrombosis cannot be fully excluded. CRP 7.40 s/p LLE exploration and biopsy 08/04/18 - No evidence found in OR of necrotizing fasciitis. no purulent fluid. Only edema seen. 3. Mild Pyuria: U/A pyuria w/o leukocyte esterase, urine culture mixed greater than 2 organisms 4. 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 Acute Encephalopathy: Continuing . difficulty with memory for the past two d ays. Head CT within normal limits ? from severe sepsis from skin infection - will order psychiatric evaluation Plan: -continue meropenem -continue vancomycin -discontinue clindamycin -f/u DEXTER, ANCA, C3, C4 [facility] M: [phone] O:[phone] Subjective Date of service: 08/06/18 Interval history: Patient seen and examined. Alsleep, difficult to arouse, non focal, continues to be non-conversant. Objective - Exam Narrative Exam: Constitutional: Asleep, difficult to arouse, non-conversant Head, Ears, Nose: Normocephalic, atraumatic. External ears, nose normal Eyes: Conjunctivae/corneas clear. No icterus. No ptosis. Neck: Supple, no meningeal signs Oral: dentition good, no thrush Cardiovascular: S1, S2 normal. Respiratory: Good air entry, clear to auscultation bilaterally GI: Soft, non-tender; bowel sounds normal. No peritoneal signs Musculoskeletal: LLE edematous, warm and tender with blistering on back of left lower limb, + dressing Skin: No rash or abscess. blistering on left lower leg Hem/Lymphatic: No palpable cervical or supraclavicular nodes. No lymphangitis Psych: Mood ok. Affect normal Neurological: Asleep, difficult to arouse - Constitutional Vitals: Vital Signs Temp Pulse Resp BP Pulse Ox 96.1 F L 76 15 103/63 100 08/06/18 04:00 08/06/18 06:11 08/06/18 06:11 08/06/18 06:11 08/06/18 08:13 Temperature -Last 24 Hours Temperature 96.1 F Temperature 96.1 F Temperature 97.6 F Temperature 97.6 F Temperature 97.3 F Temperature 97.3 F Temperature 98.6 F Temperature 97.2 F - Labs CBC & Chem 7: 08/06/18 05:12 08/06/18 05:12 Labs: Abnormal lab results 08/06/18 08/06/18 Range/Units 05:12 05:12 WBC 13.5 H (4.5-11.0) K/mm3 RBC 3.53 L (3.65-5.03) M/mm3 RDW 15.9 H (13.2-15.2) % Lymph % (Auto) 7.8 L (13.4-35.0) % [place] % (Auto) 15.8 H (0.0-7.3) % Lymph # 1.1 L (1.2-5.4) K/mm3 Frontier # 2.1 H (0.0-0.8) K/mm3 Seg Neutrophils % 75.5 H (40.0-70.0) % Seg Neutrophils # 10.2 H (1.8-7.7) K/mm3 Carbon Dioxide 18 L (22-30) mmol/L
[2018-08-06] MEDS: PEPCID PO SCH ×2 (10:12→22:17)
[2018-08-06] MEDS: TOPAMAX PO SCH ×2 (10:12→22:26)
[2018-08-06] MEDS: GEODON PO SCH ×2 (10:12→22:22)
[2018-08-06] MEDS: LaMICtal PO SCH ×2 (10:13→23:23)
[2018-08-06] MEDS: BUSPAR PO SCH ×3 (10:13→20:16)
[2018-08-06] MEDS: SODIUM CHLORIDE FLUSH SYRINGE 10 ML IV SCH ×2 (10:14→22:25)
--- NOTE | 2018-08-06 13:06 | Progress Note ---
Assessment and Plan Assessment and plan: The high probability of a clinically significant, sudden or life threatening deterioration of the [] system(s) required my full and direct attention, intervention and personal management. The aggregate critical care time was [] minutes. This time is in addition to time spent performing reported procedures but includes the following: [x] Data Review and interpretation [x] Patient assessment and monitoring of vital signs x[x] Documentation [x] Medication orders and management Total Time Spent with Patient (Minutes): 29 - Patient Problems (1) Bilateral lower extremity pain Current Visit: Yes Status: Acute Plan to address problem: Secondary to cellulitis see below (2) Cellulitis Current Visit: Yes Status: Acute Qualifiers: Site of cellulitis: extremity Site of cellulitis of extremity: lower extremity Laterality: left Qualified Code(s): L03.116 - Cellulitis of left lower limb Plan to address problem: Patient status post exploration of lower extremity wound. No evidence of necrotizing fasciitis on exam. antibiotics have been change to vancomycin and Unasyn Followed by ID also provide local wound care.. Pain appears to be control. Improving decrease fever curve decrease leukocytosis in improving edema. (3) Fibromyalgia Current Visit: Yes Status: Acute Plan to address problem: Continue antidepressant. Muscle relaxant. (4) Sepsis Current Visit: Yes Status: Acute Qualifiers: Sepsis type: sepsis due to unspecified organism Qualified Code(s): A41.9 - Sepsis, unspecified organism Plan to address problem: Into current IV antibiotics secondary to left lower extremity cellulitis. (5) Acute encephalopathy Current Visit: Yes Status: Acute Plan to address problem: secondary to sepsis appears to be improving as well. History Interval history: Patient pain improved resting comfortably. Poor historian slow response. Unsure of baseline. Hospitalist Physical - Constitutional Vitals: Temp Pulse Resp BP Pulse Ox 96.1 F L 76 15 103/63 100 08/06/18 04:00 08/06/18 06:11 08/06/18 06:11 08/06/18 06:11 08/06/18 08:13 General appearance: Present: no acute distress - EENT Eyes: Present: PERRL, EOM intact ENT: hearing intact, clear oral mucosa, dentition normal - Neck Neck: Present: supple, normal ROM - Respiratory Respiratory effort: normal Respiratory: bilateral: CTA - Cardiovascular Rhythm: regular - Extremities Extremities: no ischemia Extremity abnormal: edema, erythema, other (left lower extremity serosanguineous drainage bandage.) - Abdominal General gastrointestinal: soft, non-tender, non-distended, normal bowel sounds - Integumentary Integumentary: Present: warm - Psychiatric Psychiatric: other (flat affect changes in judgment) - Neurologic Neurologic: CNII-XII intact, moves all extremities Results - Labs CBC & Chem 7: 08/06/18 05:12 08/06/18 05:12 Labs: Laboratory Last Values WBC 13.5 K/mm3 (4.5-11.0) H 08/06/18 05:12 RBC 3.53 M/mm3 (3.65-5.03) L 08/06/18 05:12 Hgb 11.2 gm/dl (10.1-14.3) 08/06/18 05:12 Hct 34.3 % (30.3-42.9) 08/06/18 05:12 MCV 97 fl (79-97) 08/06/18 05:12 MCH 32 pg (28-32) 08/06/18 05:12 MCHC 33 % (30-34) 08/06/18 05:12 RDW 15.9 % (13.2-15.2) H 08/06/18 05:12 Plt Count 242 K/mm3 (140-440) 08/06/18 05:12 Lymph % (Auto) 7.8 % (13.4-35.0) L 08/06/18 05:12 [place] % (Auto) 15.8 % (0.0-7.3) H 08/06/18 05:12 Eos % (Auto) 0.7 % (0.0-4.3) 08/06/18 05:12 Baso % (Auto) 0.2 % (0.0-1.8) 08/06/18 05:12 Lymph # 1.1 K/mm3 (1.2-5.4) L 08/06/18 05:12 [place] # 2.1 K/mm3 (0.0-0.8) H 08/06/18 05:12 Eos # 0.1 K/mm3 (0.0-0.4) 08/06/18 05:12 Baso # 0.0 K/mm3 (0.0-0.1) 08/06/18 05:12 Add Manual Diff Complete 08/05/18 05:23 Total Counted 100 08/05/18 05:23 Seg Neutrophils % 75.5 % (40.0-70.0) H 08/06/18 05:12 Seg Neuts % (Manual) 95.0 % (40.0-70.0) H 08/05/18 05:23 Band Neutrophils % 0 % 08/05/18 05:23 Lymphocytes % (Manual) 3.0 % (13.4-35.0) L 08/05/18 05:23 Reactive Lymphs % (Man) 0 % 08/05/18 05:23 Monocytes % (Manual) 2.0 % (0.0-7.3) 08/05/18 05:23 Eosinophils % (Manual) 0 % (0.0-4.3) 08/05/18 05:23 Basophils % (Manual) 0 % (0.0-1.8) 08/05/18 05:23 Metamyelocytes % 0 % 08/05/18 05:23 Myelocytes % 0 % 08/05/18 05:23 Promyelocytes % 0 % 08/05/18 05:23 Blast Cells % 0 % 08/05/18 05:23 Nucleated RBC % Not Reportable 08/05/18 05:23 Seg Neutrophils # 10.2 K/mm3 (1.8-7.7) H 08/06/18 05:12 Seg Neutrophils # Man 13.2 K/mm3 (1.8-7.7) H 08/05/18 05:23 Band Neutrophils # 0.0 K/mm3 08/05/18 05:23 Lymphocytes # (Manual) 0.4 K/mm3 (1.2-5.4) L 08/05/18 05:23 Abs React Lymphs (Man) 0.0 K/mm3 08/05/18 05:23 Monocytes # (Manual) 0.3 K/mm3 (0.0-0.8) 08/05/18 05:23 Eosinophils # (Manual) 0.0 K/mm3 (0.0-0.4) 08/05/18 05:23 Basophils # (Manual) 0.0 K/mm3 (0.0-0.1) 08/05/18 05:23 Metamyelocytes # 0.0 K/mm3 08/05/18 05:23 Myelocytes # 0.0 K/mm3 08/05/18 05:23 Promyelocytes # 0.0 K/mm3 08/05/18 05:23 Blast Cells # 0.0 K/mm3 08/05/18 05:23 WBC Morphology Not Reportable 08/05/18 05:23 Hypersegmented Neuts Not Reportable 08/05/18 05:23 Hyposegmented Neuts Not Reportable 08/05/18 05:23 Hypogranular Neuts Not Reportable 08/05/18 05:23 Smudge Cells Not Reportable 08/05/18 05:23 Toxic Granulation Not Reportable 08/05/18 05:23 Toxic Vacuolation Not Reportable 08/05/18 05:23 Dohle Bodies Not Reportable 08/05/18 05:23 Pelger-Huet Anomaly Not Reportable 08/05/18 05:23 Tila Rods Not Reportable 08/05/18 05:23 Platelet Estimate Appears normal 08/05/18 05:23 Clumped Platelets Not Reportable 08/05/18 05:23 Plt Clumps, EDTA Not Reportable 08/05/18 05:23 Large Platelets Not Reportable 08/05/18 05:23 Giant Platelets Not Reportable 08/05/18 05:23 Platelet Satelliting Not Reportable 08/05/18 05:23 Plt Morphology Comment Not Reportable 08/05/18 05:23 RBC Morphology Not Reportable 08/05/18 05:23 Dimorphic RBCs Not Reportable 08/05/18 05:23 Polychromasia Not Reportable 08/05/18 05:23 Hypochromasia Not Reportable 08/05/18 05:23 Poikilocytosis Not Reportable 08/05/18 05:23 Anisocytosis 1+ 08/05/18 05:23 Microcytosis Not Reportable 08/05/18 05:23 Macrocytosis Not Reportable 08/05/18 05:23 Spherocytes Not Reportable 08/05/18 05:23 Pappenheimer Bodies Not Reportable 08/05/18 05:23 Sickle Cells Not Reportable 08/05/18 05:23 Target Cells Not Reportable 08/05/18 05:23 Tear Drop Cells Not Reportable 08/05/18 05:23 Ovalocytes Few 08/05/18 05:23 Helmet Cells Rare 08/05/18 05:23 Young-Falcon Bodies Not Reportable 08/05/18 05:23 [place] Rings Not Reportable 08/05/18 05:23 Lauren Cells Not Reportable 08/05/18 05:23 Bite Cells Not Reportable 08/05/18 05:23 Crenated Cell Not Reportable 08/05/18 05:23 Elliptocytes Not Reportable 08/05/18 05:23 Acanthocytes (Spur) Not Reportable 08/05/18 05:23 Rouleaux Not Reportable 08/05/18 05:23 Hemoglobin C Crystals Not Reportable 08/05/18 05:23 Schistocytes Not Reportable 08/05/18 05:23 Malaria parasites Not Reportable 08/05/18 05:23 ESR 4 mm/Hr (0-20) 08/02/18 Unknown Tunde Bodies Not Reportable 08/05/18 05:23 Hem Pathologist Commnt No 08/05/18 05:23 Sodium 137 mmol/L (137-145) 08/06/18 05:12 Potassium 3.7 mmol/L (3.6-5.0) 08/06/18 05:12 Chloride 103.2 mmol/L (98-107) 08/06/18 05:12 Carbon Dioxide 18 mmol/L (22-30) L 08/06/18 05:12 Anion Gap 20 mmol/L 08/06/18 05:12 BUN 17 mg/dL (7-17) 08/06/18 05:12 Creatinine 0.9 mg/dL (0.7-1.2) 08/06/18 05:12 Estimated GFR > 60 ml/min 08/06/18 05:12 BUN/Creatinine Ratio 19 % 08/06/18 05:12 Glucose 97 mg/dL (65-100) 08/06/18 05:12 Lactic Acid 0.50 mmol/L (0.7-2.0) L 08/03/18 16:18 Calcium 8.4 mg/dL (8.4-10.2) 08/06/18 05:12 Total Bilirubin 0.40 mg/dL (0.1-1.2) 08/02/18 Unknown AST 336 units/L (5-40) H 08/02/18 Unknown ALT 44 units/L (7-56) 08/02/18 Unknown Alkaline Phosphatase 109 units/L (35-129) 08/02/18 Unknown Total Creatine Kinase 605 units/L (30-135) H 08/02/18 Unknown CK-MB (CK-2) 285.3 ng/mL (0.0-4.0) H 08/02/18 Unknown CK-MB (CK-2) Rel Index 47.1 (0-4) H 08/02/18 Unknown Troponin T < 0.010 ng/mL (0.00-0.029) 08/02/18 Unknown C-Reactive Protein 7.40 mg/dL (0.00-1.30) H 08/02/18 14:54 Total Protein 7.9 g/dL (6.3-8.2) 08/02/18 Unknown Albumin 4.7 g/dL (3.9-5) 08/02/18 Unknown Albumin/Globulin Ratio 1.5 % 08/02/18 Unknown HCG, Qual Negative (Negative) 08/02/18 Unknown Urine Color Lori (Yellow) 08/02/18 10:24 Urine Turbidity Cloudy (Clear) 08/02/18 10:24 Urine pH 6.0 (5.0-7.0) 08/02/18 10:24 Ur Specific [place] 1.020 (1.003-1.030) 08/02/18 10:24 Urine Protein 100 mg/dl mg/dL (Negative) 08/02/18 10:24 Urine Glucose (UA) Neg mg/dL (Negative) 08/02/18 10:24 Urine Ketones Neg mg/dL (Negative) 08/02/18 10:24 Urine Blood Lg (Negative) 08/02/18 10:24 Urine Nitrite Neg (Negative) 08/02/18 10:24 Urine Bilirubin Neg (Negative) 08/02/18 10:24 Urine Urobilinogen 2.0 mg/dL (<2.0) 08/02/18 10:24 Ur Leukocyte Esterase Neg (Negative) 08/02/18 10:24 Urine WBC (Auto) 7.0 /HPF (0.0-6.0) H 08/02/18 10:24 Urine RBC (Auto) 3.0 /HPF (0.0-6.0) 08/02/18 10:24 U Epithel Cells (Auto) 4.0 /HPF (0-13.0) 08/02/18 10:24 Urine Mucus 2+ /HPF 08/02/18 10:24 Urine HCG, Qual Negative (Negative) 08/02/18 10:24 Vancomycin Trough 18.2 ug/mL (5.0-20.0) 08/06/18 10:42 Urine Opiates Screen Presumptive negative 08/02/18 10:33 Urine Methadone Screen Presumptive negative 08/02/18 10:33 Ur Barbiturates Screen Presumptive negative 08/02/18 10:33 Ur Phencyclidine Scrn Presumptive negative 08/02/18 10:33 Ur Amphetamines Screen Presumptive negative 08/02/18 10:33 U Benzodiazepines Scrn Presumptive positive 08/02/18 10:33 Urine Cocaine Screen Presumptive negative 08/02/18 10:33 U Marijuana (THC) Screen Presumptive negative 08/02/18 10:33 Drugs of Abuse Note Disclamer 08/02/18 10:33 - Imaging and Cardiology CT Scan - head: report reviewed Imaging and Cardiology: ct of lower ext
--- NOTE | 2018-08-06 13:23 | Progress Note ---
Assessment and Plan - Patient Problems (1) Cellulitis Current Visit: Yes Status: Acute Qualifiers: Site of cellulitis: extremity Site of cellulitis of extremity: lower extremity Laterality: left Qualified Code(s): L03.116 - Cellulitis of left lower limb Plan to address problem: Pt stable. s/p LLE exploration and biopsy 08/04/18 - POD#2. No evidence found in OR of necrotizing fasciitis. no purulent fluid. Only edema seen. Interestingly, compared to our initial exam 2 days ago where she had excruciating pain of the left leg on palpation, today she shows no signs of any significant tenderness. Not sure what to make of that. Cultures have not grown anything yet. Will do routine wound care of surgical wounds for now. Please call with questions. Subjective Date of service: 08/06/18 Patient Reports: Positive: other (no events overnight) Objective Vital Signs - 12hr 08/06/18 08/06/18 08/06/18 01:21 01:31 01:41 Temperature Pulse Rate 64 64 63 Pulse Rate [ From Monitor] Respiratory 11 L 12 12 Rate Blood Pressure 93/59 93/59 90/56 O2 Sat by Pulse 100 100 100 Oximetry 08/06/18 08/06/18 08/06/18 01:51 02:00 02:11 Temperature Pulse Rate 65 65 67 Pulse Rate [ From Monitor] Respiratory 12 15 11 L Rate Blood Pressure 90/56 93/62 93/62 O2 Sat by Pulse 100 100 100 Oximetry 08/06/18 08/06/18 08/06/18 02:21 02:31 02:41 Temperature Pulse Rate 65 66 67 Pulse Rate [ From Monitor] Respiratory 23 18 23 Rate Blood Pressure 93/62 93/62 93/62 O2 Sat by Pulse 100 100 100 Oximetry 08/06/18 08/06/18 08/06/18 02:51 03:00 03:11 Temperature Pulse Rate 68 68 71 Pulse Rate [ From Monitor] Respiratory 24 23 18 Rate Blood Pressure 93/62 97/67 97/67 O2 Sat by Pulse 100 100 100 Oximetry 08/06/18 08/06/18 08/06/18 03:21 03:31 03:41 Temperature Pulse Rate 71 72 74 Pulse Rate [ From Monitor] Respiratory 16 25 H 13 Rate Blood Pressure 97/67 97/67 97/67 O2 Sat by Pulse 100 100 100 Oximetry 08/06/18 08/06/18 08/06/18 03:51 04:00 04:11 Temperature 96.1 F L Pulse Rate 71 70 69 Pulse Rate [ 67 From Monitor] Respiratory 13 14 12 Rate Blood Pressure 97/67 95/60 95/60 O2 Sat by Pulse 100 100 100 Oximetry 08/06/18 08/06/18 08/06/18 04:21 04:31 04:41 Temperature Pulse Rate 71 69 69 Pulse Rate [ From Monitor] Respiratory 13 13 13 Rate Blood Pressure 95/60 95/60 95/60 O2 Sat by Pulse 100 100 100 Oximetry 08/06/18 08/06/18 08/06/18 04:51 05:00 05:11 Temperature Pulse Rate 69 68 67 Pulse Rate [ From Monitor] Respiratory 13 14 13 Rate Blood Pressure 95/60 92/58 92/58 O2 Sat by Pulse 100 100 100 Oximetry 08/06/18 08/06/18 08/06/18 05:21 05:31 05:41 Temperature Pulse Rate 71 68 70 Pulse Rate [ From Monitor] Respiratory 13 14 12 Rate Blood Pressure 92/58 92/58 92/58 O2 Sat by Pulse 100 100 100 Oximetry 08/06/18 08/06/18 08/06/18 05:51 06:00 06:11 Temperature Pulse Rate 68 76 76 Pulse Rate [ From Monitor] Respiratory 13 11 L 15 Rate Blood Pressure 92/58 103/63 103/63 O2 Sat by Pulse 100 100 100 Oximetry 08/06/18 08:13 Temperature Pulse Rate Pulse Rate [ From Monitor] Respiratory Rate Blood Pressure O2 Sat by Pulse 100 Oximetry - General physical appearance no distress, no pain, other (patient sleeping) - Respiratory normal expansion, normal respiratory effort - Musculoskeletal other (no apparent tenderness to palpation of either leg. Erythema appears less on left leg. Mild edema is still present in the left leg. Dressings have serous drainage.) - Labs 08/06/18 05:12 08/06/18 05:12 Diabetes panel 08/06/18 Range/Units 05:12 Sodium 137 (137-145) mmol/L Potassium 3.7 (3.6-5.0) mmol/L Chloride 103.2 (98-107) mmol/L Carbon Dioxide 18 L (22-30) mmol/L BUN 17 (7-17) mg/dL Creatinine 0.9 (0.7-1.2) mg/dL Glucose 97 (65-100) mg/dL Calcium 8.4 (8.4-10.2) mg/dL Calcium panel 08/06/18 Range/Units 05:12 Calcium 8.4 (8.4-10.2) mg/dL Pituitary panel 08/06/18 Range/Units 05:12 Sodium 137 (137-145) mmol/L Potassium 3.7 (3.6-5.0) mmol/L Chloride 103.2 (98-107) mmol/L Carbon Dioxide 18 L (22-30) mmol/L BUN 17 (7-17) mg/dL Creatinine 0.9 (0.7-1.2) mg/dL Glucose 97 (65-100) mg/dL Calcium 8.4 (8.4-10.2) mg/dL Adrenal panel 08/06/18 Range/Units 05:12 Sodium 137 (137-145) mmol/L Potassium 3.7 (3.6-5.0) mmol/L Chloride 103.2 (98-107) mmol/L Carbon Dioxide 18 L (22-30) mmol/L BUN 17 (7-17) mg/dL Creatinine 0.9 (0.7-1.2) mg/dL Glucose 97 (65-100) mg/dL Calcium 8.4 (8.4-10.2) mg/dL
[2018-08-06] MEDS: SINEquan PO SCH ×2 (22:18→22:24)
[2018-08-06] MEDS: DESYREL PO SCH (22:19)
[2018-08-07] MEDS: PERCOCET 5/325 PO PRN (04:11)
[2018-08-07] MEDS: MERREM 1,000 MG in NACL 0.9% 100 ML IV SCH ×2 (06:42→14:19)
[2018-08-07] MEDS: HEPARIN SUB-Q SCH ×3 (07:14→22:28)
[2018-08-07] MEDS: NACL 0.45% 1000 ML 1,000 ML IV SCH (07:15)
[2018-08-07 08:12] LABS: BUN/Creatinine Ratio TNR; Blood Urea Nitrogen TNR mg/dL (7-17)
[2018-08-07 08:13] LABS: Calcium TNR mg/dL (8.4-10.2); Hemolysis Index TNR
[2018-08-07] MEDS: BUSPAR PO SCH ×3 (08:30→20:23)
[2018-08-07] MEDS: XANAX PO SCH ×3 (08:30→20:27)
[2018-08-07] MEDS: LYRICA PO SCH ×3 (08:30→20:22)
[2018-08-07 09:50] LABS: Alanine Aminotransferase 69 units/L (7-56); Albumin 2.6 g/dL (3.9-5); BUN/Creatinine Ratio 19; Blood Urea Nitrogen 15 mg/dL (7-17); Calcium 8.5 mg/dL (8.4-10.2); Hemolysis Index 13
[2018-08-07] MEDS: TOPAMAX PO SCH ×2 (10:54→22:24)
[2018-08-07] MEDS: GEODON PO SCH ×2 (10:54→22:25)
[2018-08-07] MEDS: LaMICtal PO SCH ×2 (10:54→22:25)
[2018-08-07] MEDS: PEPCID PO SCH ×2 (10:55→22:26)
[2018-08-07] MEDS: SODIUM CHLORIDE FLUSH SYRINGE 10 ML IV SCH ×2 (10:55→22:29)
--- NOTE | 2018-08-07 10:57 | Progress Note ---
Assessment and Plan Cultures: 08/02/2018 Urine: 10-100,000 for mixed culture > 2 organisms 08/02/2018 Blood:no growth to date 08/04/18: Left foot anaerobic: no growth to date 08/04/18: Left leg anaerobic culture: no growth to date 08/04/18: Surgical Biopsy left leg: no growth to date 08/04/18: Surgical left leg: no growth to date A/P: 42-year-old female with a past medical history of Fibromyalgia, noncompliant with rheumatologic medicaiton, Asthma, obesity and medication noncompliance, admitted with: 1. SIRS vs Sepsis: Improved, evidenced by leukocytois, tachycardia and elevated lactic acid, etiology most likely LLE cellulites, +/- Fibromyalgia, receiving steroid therapy, no fevers. Chest xray shows no consolidation, U/A with pyuria, urine culture shows 10-100,000 for mixed culture > 2 organisms, Blood cultures were drawn and are pending. Currently being treated with cefepime. Discontnue Cefepime, start Vancomycin and Unasyn. 2. Dog Bite Associated Cellulitis LLE versus necrotizing infection: Unable to exam at beside due to extreme tenderness, LLE edematous and warm, admission pictures show blistering to the left lower limb and ankle. Admits to dog bite 2 days ago. DDX Pasteurella/Capnocytophaga/MRSA Arterial Doppler: No evidence of deep venous thrombosis of the right lower ex tremity. Poor visualization of the left posterior tibial vein, and peroneal vein at the and deep venous thrombosis cannot be fully excluded. CRP 7.40 s/p LLE exploration and biopsy 08/04/18 - No evidence found in OR of necrotizing fasciitis. no purulent fluid. Only edema seen. 3. Mild Pyuria: U/A pyuria w/o leukocyte esterase, urine culture mixed greater than 2 organisms 4. 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 Acute Encephalopathy: Continuing . difficulty with memory for the past two d ays. Head CT within normal limits ? from severe sepsis from skin infection - will order psychiatric evaluation Plan: -discontinue meropenem, D4 -discontinue vancomycin, D5 -f/u DEXTER, ANCA, C3, C4 -f/u Psychiatric consult - No evidence found in OR of necrotizing fasciitis. no purulent fluid., will de- escalate to PO antimicrobials, will Start Ceftin 500 mg po BID, Flagyl 500 mg PO every 8h and Doxycycline 100 mg po BID for total 10 days ending 08-13-18 -Continue wound care d/w Dr. Melchor Quinones, [facility] M: [phone] O:[phone] Subjective Date of service: 08/07/18 Interval history: Patient seen and examined. Alsleep, difficult to arouse, non focal, continues to be non-conversant. Objective - Exam Narrative Exam: Constitutional: Asleep, difficult to arouse, non-conversant Head, Ears, Nose: Normocephalic, atraumatic. External ears, nose normal Eyes: Conjunctivae/corneas clear. No icterus. No ptosis. Neck: Supple, no meningeal signs Oral: dentition good, no thrush Cardiovascular: S1, S2 normal. Respiratory: Good air entry, clear to auscultation bilaterally GI: Soft, non-tender; bowel sounds normal. No peritoneal signs Musculoskeletal: LLE edematous, warm and tender with blistering on back of left lower limb, + dressing Skin: No rash or abscess. blistering on left lower leg Hem/Lymphatic: No palpable cervical or supraclavicular nodes. No lymphangitis Psych: Mood ok. Affect normal Neurological: Asleep, difficult to arouse - Constitutional Vitals: Vital Signs Temp Pulse Resp BP Pulse Ox 97.4 F L 94 H 24 105/62 98 08/07/18 08:00 08/07/18 08:41 08/07/18 08:41 08/07/18 08:41 08/07/18 09:41 Temperature -Last 24 Hours Temperature 97.4 F Temperature 97.6 F Temperature 97.4 F Temperature 98.4 F Temperature 97.4 F Temperature 98.2 F - Labs CBC & Chem 7: 08/07/18 11:02 08/07/18 08:40 Labs: Abnormal lab results 08/07/18 Range/Units 08:40 Sodium 135 L (137-145) mmol/L Potassium 3.5 L (3.6-5.0) mmol/L Carbon Dioxide 21 L (22-30) mmol/L AST 202 H (5-40) units/L ALT 69 H (7-56) units/L Total Protein 6.2 L (6.3-8.2) g/dL Albumin 2.6 L (3.9-5) g/dL
[2018-08-07] MEDS: VANCOMYCIN 1,250 MG in NACL 0.9% 250ML 250 ML IV SCH ×2 (11:00)
[2018-08-07 11:25] LABS: Basophils % (Auto) 0.8 % (0.0-1.8); Eosinophils # (Auto) 0.1 K/mm3 (0.0-0.4); Hematocrit 33.7 % (30.3-42.9); Hemoglobin 11.3 gm/dl (10.1-14.3); Lymphocytes # (Auto) 1.1 K/mm3 (1.2-5.4); Lymphocytes % (Auto) 17.7 % (13.4-35.0); Mean Corpuscular HGB Conc 34 % (30-34); Mean Corpuscular Volume 93 fl (79-97); Monocytes # (Auto) 0.8 K/mm3 (0.0-0.8); Monocytes % (Auto) 12.9 % (0.0-7.3); Platelet Count 315 K/mm3 (140-440); Red Blood Count 3.61 M/mm3 (3.65-5.03); Red Cell Distribution Width 15.5 % (13.2-15.2)
--- NOTE | 2018-08-07 12:44 | Progress Note ---
Assessment and Plan - Patient Problems (1) Cellulitis Current Visit: Yes Status: Acute Qualifiers: Site of cellulitis: extremity Site of cellulitis of extremity: lower extremity Laterality: left Qualified Code(s): L03.116 - Cellulitis of left lower limb Plan to address problem: Pt stable. s/p LLE exploration and biopsy 08/04/18 - POD#3. No evidence found in OR of necrotizing fasciitis. no purulent fluid. Only edema seen. Tenderness on exam is much less than initial exam. Leg is much improved in appearance. Cultures have not grown anything yet. Continue routine wound care. Please call with questions. Subjective Date of service: 08/07/18 Patient Reports: Positive: no new complaints, feels better, pain is less Objective Vital Signs - 12hr 08/07/18 08/07/18 08/07/18 00:51 01:00 01:11 Temperature Pulse Rate 97 H 93 H 90 Pulse Rate [ From Monitor] Respiratory 23 19 22 Rate Blood Pressure 104/51 112/65 112/65 O2 Sat by Pulse 97 98 98 Oximetry 08/07/18 08/07/18 08/07/18 01:21 01:31 01:41 Temperature Pulse Rate 88 87 86 Pulse Rate [ From Monitor] Respiratory 22 22 22 Rate Blood Pressure 112/65 112/65 112/65 O2 Sat by Pulse 99 99 99 Oximetry 08/07/18 08/07/18 08/07/18 01:51 02:00 02:11 Temperature Pulse Rate 85 85 85 Pulse Rate [ From Monitor] Respiratory 22 20 21 Rate Blood Pressure 112/65 109/68 109/68 O2 Sat by Pulse 99 99 100 Oximetry 08/07/18 08/07/18 08/07/18 02:21 02:31 02:41 Temperature Pulse Rate 84 84 86 Pulse Rate [ From Monitor] Respiratory 22 17 20 Rate Blood Pressure 112/65 112/65 112/65 O2 Sat by Pulse 100 100 100 Oximetry 08/07/18 08/07/18 08/07/18 02:50 03:00 03:11 Temperature Pulse Rate 87 88 87 Pulse Rate [ From Monitor] Respiratory 14 18 19 Rate Blood Pressure 109/68 119/71 119/71 O2 Sat by Pulse 100 100 100 Oximetry 08/07/18 08/07/18 08/07/18 03:21 03:31 03:41 Temperature Pulse Rate 86 86 88 Pulse Rate [ From Monitor] Respiratory 19 19 19 Rate Blood Pressure 109/68 109/68 109/68 O2 Sat by Pulse 100 100 100 Oximetry 08/07/18 08/07/18 08/07/18 03:51 04:00 04:11 Temperature 97.6 F Pulse Rate 100 H 99 H 90 Pulse Rate [ 94 H From Monitor] Respiratory 26 H 17 20 Rate Blood Pressure 109/68 117/70 117/70 O2 Sat by Pulse 100 100 100 Oximetry 08/07/18 08/07/18 08/07/18 04:21 04:31 04:41 Temperature Pulse Rate 94 H 90 90 Pulse Rate [ From Monitor] Respiratory 20 19 22 Rate Blood Pressure 117/70 117/70 117/70 O2 Sat by Pulse 100 100 99 Oximetry 08/07/18 08/07/18 08/07/18 04:51 05:00 05:11 Temperature Pulse Rate 93 H 92 H 92 H Pulse Rate [ From Monitor] Respiratory 20 18 18 Rate Blood Pressure 117/70 124/66 124/66 O2 Sat by Pulse 99 98 98 Oximetry 08/07/18 08/07/18 08/07/18 05:21 05:31 05:41 Temperature Pulse Rate 94 H 94 H 93 H Pulse Rate [ From Monitor] Respiratory 16 16 16 Rate Blood Pressure 124/66 124/66 124/66 O2 Sat by Pulse 98 98 99 Oximetry 08/07/18 08/07/18 08/07/18 05:51 06:00 06:11 Temperature Pulse Rate 91 H 90 90 Pulse Rate [ From Monitor] Respiratory 18 17 17 Rate Blood Pressure 124/66 119/71 119/71 O2 Sat by Pulse 98 98 98 Oximetry 08/07/18 08/07/18 08/07/18 06:21 06:31 06:41 Temperature Pulse Rate 91 H 89 95 H Pulse Rate [ From Monitor] Respiratory 16 17 19 Rate Blood Pressure 119/71 119/71 119/71 O2 Sat by Pulse 99 99 98 Oximetry 08/07/18 08/07/18 08/07/18 06:51 07:00 07:11 Temperature Pulse Rate 90 87 90 Pulse Rate [ From Monitor] Respiratory 19 20 19 Rate Blood Pressure 119/71 107/61 107/61 O2 Sat by Pulse 98 97 99 Oximetry 08/07/18 08/07/18 08/07/18 07:21 07:30 07:40 Temperature Pulse Rate 87 88 86 Pulse Rate [ From Monitor] Respiratory 17 17 15 Rate Blood Pressure 107/61 107/61 107/61 O2 Sat by Pulse 99 100 99 Oximetry 08/07/18 08/07/18 08/07/18 07:51 08:00 08:11 Temperature 97.4 F L Pulse Rate 87 88 90 Pulse Rate [ 93 H From Monitor] Respiratory 16 18 18 Rate Blood Pressure 107/61 105/62 105/62 O2 Sat by Pulse 99 96 98 Oximetry 08/07/18 08/07/18 08/07/18 08:21 08:31 08:41 Temperature Pulse Rate 96 H 90 94 H Pulse Rate [ From Monitor] Respiratory 21 19 24 Rate Blood Pressure 105/62 105/62 105/62 O2 Sat by Pulse 98 98 98 Oximetry 08/07/18 09:41 Temperature Pulse Rate Pulse Rate [ From Monitor] Respiratory Rate Blood Pressure O2 Sat by Pulse 98 Oximetry - General physical appearance no distress, no pain, other (more awake and interactive today) - Respiratory normal expansion, normal respiratory effort - Integumentary other (wounds are clean. erythema and leg swelling are less. Much less tender to palpation) - Labs 08/07/18 11:02 08/07/18 08:40 Diabetes panel 08/07/18 08/07/18 Range/Units 07:08 08:40 Sodium TNR 135 L Potassium TNR 3.5 L Chloride TNR 102.8 Carbon Dioxide TNR 21 L BUN TNR 15 Creatinine TNR 0.8 Glucose TNR 86 Calcium TNR 8.5 AST 202 H (5-40) units/L ALT 69 H (7-56) units/L Alkaline Phosphatase 71 (35-129) units/L Total Protein 6.2 L (6.3-8.2) g/dL Albumin 2.6 L (3.9-5) g/dL Calcium panel 08/07/18 08/07/18 Range/Units 07:08 08:40 Calcium TNR 8.5 Albumin 2.6 L (3.9-5) g/dL Pituitary panel 08/07/18 08/07/18 Range/Units 07:08 08:40 Sodium TNR 135 L Potassium TNR 3.5 L Chloride TNR 102.8 Carbon Dioxide TNR 21 L BUN TNR 15 Creatinine TNR 0.8 Glucose TNR 86 Calcium TNR 8.5 Adrenal panel 08/07/18 08/07/18 Range/Units 07:08 08:40 Sodium TNR 135 L Potassium TNR 3.5 L Chloride TNR 102.8 Carbon Dioxide TNR 21 L BUN TNR 15 Creatinine TNR 0.8 Glucose TNR 86 Calcium TNR 8.5 Total Bilirubin 0.20 (0.1-1.2) mg/dL AST 202 H (5-40) units/L ALT 69 H (7-56) units/L Alkaline Phosphatase 71 (35-129) units/L Total Protein 6.2 L (6.3-8.2) g/dL Albumin 2.6 L (3.9-5) g/dL
--- NOTE | 2018-08-07 14:07 | Cat Scan Report ---
PROCEDURE: CT LOWER EXTREMITY LT W CON TECHNIQUE: Computerized axial tomography of the left distal thigh and lower leg was performed after the intravenous administration of iodinated noninonic contrast material. HISTORY: left dog bite behind knee and caft now severe seps COMPARISONS: None . FINDINGS: Contrast-enhanced CT of the left distal 5 and lower leg was performed following the intrave nous administration of urinary contrast. These images demonstrate dorsal soft tissue swelling of the foot and anterior aspect of the ankle, as well as of the distal lateral calf which could represent cellulitis. No soft tissue abscess is seen. The visualized portion of the distal superficial femoral artery is patent. The popliteal artery is pa tent. The anterior tibial posterior tibial and peroneal arteries appear patent to the level of the an kle. There is a skin lesion which projects anterolaterally from the proximal lower leg, axial image 113, 1 .7 x 0.6 cm, not characterized. Correlation with direct visualization is recommended. This appears to be superficial and does not appear to involve the subcutaneous tissues. No fracture or evidence of osteomyelitis is seen. The patient appears to be status post fusion of the subtalar joint. IMPRESSION: Subcutaneous stranding of dorsum of foot, anterior ankle and distal, lateral calf, which could repres ent cellulitis. No abscess is seen Skin lesion of anterolateral, proximal aspect of lower leg, not characterized. Correlation with direc t visualization is recommended The left leg arterial vasculature appears patent This document is electronically signed by Sulaiman Guy MD., August 04 2018 05:33:33 PM ET
[2018-08-07] MEDS ORDERED: VIBRAMYCIN PO SCH (16:00)
--- NOTE | 2018-08-07 16:35 | Progress Note ---
Assessment and Plan Assessment and plan: Sepsis secondary to cellulitis ID suspected necrotizing cellulitis - Surgery was consulted and did exploration but no necrotizing fascitis - Patient is on cefepime and metronidazole - Doppler negative - ID consult placed Patient is sluggish to answer questions - CT head is negative Depression, bipolar disorder, schizophrenia - Continue home medications Fibromyalgia: - Pain control - Continue home medications Lactic Acidosis - resolved with IV fluids patient has a lot of psych and seizure medications - Resume home medications DVT prophylaxis - On heparin Disposition - continue inpatient care. Prognosis; Guarded History Interval history: Patient was seen and evaluated this morning, patient didn't have any new complaints. Hospitalist Physical - Physical exam Narrative exam: Not in cardiopulmonary distress. The patient is obese. Vital signs as documented. Head exam is unremarkable. No scleral icterus . Neck is without jugular venous distension, thyromegaly, or carotid bruits. Lungs are clear to auscultation. Cardiac exam reveals regular rate and Rhythm. First and second heart sounds normal. No murmurs, rubs or gallops. Abdominal exam reveals normal bowel sounds, no masses, no organomegaly and no aortic enlargement. Extremities swelling of the left leg. 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 No focal weakness. - Constitutional Vitals: Temp Pulse Resp BP Pulse Ox 98.0 F 86 19 107/60 100 08/07/18 16:00 08/07/18 15:20 08/07/18 15:20 08/07/18 15:20 08/07/18 15:20 General appearance: Present: no acute distress Results - Labs CBC & Chem 7: 08/07/18 11:02 08/07/18 08:40 Labs: Laboratory Last Values WBC 6.0 K/mm3 (4.5-11.0) 08/07/18 11:02 RBC 3.61 M/mm3 (3.65-5.03) L 08/07/18 11:02 Hgb 11.3 gm/dl (10.1-14.3) 08/07/18 11:02 Hct 33.7 % (30.3-42.9) 08/07/18 11:02 MCV 93 fl (79-97) 08/07/18 11:02 MCH 31 pg (28-32) 08/07/18 11:02 MCHC 34 % (30-34) 08/07/18 11:02 RDW 15.5 % (13.2-15.2) H 08/07/18 11:02 Plt Count 315 K/mm3 (140-440) 08/07/18 11:02 Lymph % (Auto) 17.7 % (13.4-35.0) 08/07/18 11:02 [place] % (Auto) 12.9 % (0.0-7.3) H 08/07/18 11:02 Eos % (Auto) 2.0 % (0.0-4.3) 08/07/18 11:02 Baso % (Auto) 0.8 % (0.0-1.8) 08/07/18 11:02 Lymph # 1.1 K/mm3 (1.2-5.4) L 08/07/18 11:02 [place] # 0.8 K/mm3 (0.0-0.8) 08/07/18 11:02 Eos # 0.1 K/mm3 (0.0-0.4) 08/07/18 11:02 Baso # 0.0 K/mm3 (0.0-0.1) 08/07/18 11:02 Add Manual Diff Complete 08/05/18 05:23 Total Counted 100 08/05/18 05:23 Seg Neutrophils % 66.6 % (40.0-70.0) 08/07/18 11:02 Seg Neuts % (Manual) 95.0 % (40.0-70.0) H 08/05/18 05:23 Band Neutrophils % 0 % 08/05/18 05:23 Lymphocytes % (Manual) 3.0 % (13.4-35.0) L 08/05/18 05:23 Reactive Lymphs % (Man) 0 % 08/05/18 05:23 Monocytes % (Manual) 2.0 % (0.0-7.3) 08/05/18 05:23 Eosinophils % (Manual) 0 % (0.0-4.3) 08/05/18 05:23 Basophils % (Manual) 0 % (0.0-1.8) 08/05/18 05:23 Metamyelocytes % 0 % 08/05/18 05:23 Myelocytes % 0 % 08/05/18 05:23 Promyelocytes % 0 % 08/05/18 05:23 Blast Cells % 0 % 08/05/18 05:23 Nucleated RBC % Not Reportable 08/05/18 05:23 Seg Neutrophils # 4.0 K/mm3 (1.8-7.7) 08/07/18 11:02 Seg Neutrophils # Man 13.2 K/mm3 (1.8-7.7) H 08/05/18 05:23 Band Neutrophils # 0.0 K/mm3 08/05/18 05:23 Lymphocytes # (Manual) 0.4 K/mm3 (1.2-5.4) L 08/05/18 05:23 Abs React Lymphs (Man) 0.0 K/mm3 08/05/18 05:23 Monocytes # (Manual) 0.3 K/mm3 (0.0-0.8) 08/05/18 05:23 Eosinophils # (Manual) 0.0 K/mm3 (0.0-0.4) 08/05/18 05:23 Basophils # (Manual) 0.0 K/mm3 (0.0-0.1) 08/05/18 05:23 Metamyelocytes # 0.0 K/mm3 08/05/18 05:23 Myelocytes # 0.0 K/mm3 08/05/18 05:23 Promyelocytes # 0.0 K/mm3 08/05/18 05:23 Blast Cells # 0.0 K/mm3 08/05/18 05:23 WBC Morphology Not Reportable 08/05/18 05:23 Hypersegmented Neuts Not Reportable 08/05/18 05:23 Hyposegmented Neuts Not Reportable 08/05/18 05:23 Hypogranular Neuts Not Reportable 08/05/18 05:23 Smudge Cells Not Reportable 08/05/18 05:23 Toxic Granulation Not Reportable 08/05/18 05:23 Toxic Vacuolation Not Reportable 08/05/18 05:23 Dohle Bodies Not Reportable 08/05/18 05:23 Pelger-Huet Anomaly Not Reportable 08/05/18 05:23 Tila Rods Not Reportable 08/05/18 05:23 Platelet Estimate Appears normal 08/05/18 05:23 Clumped Platelets Not Reportable 08/05/18 05:23 Plt Clumps, EDTA Not Reportable 08/05/18 05:23 Large Platelets Not Reportable 08/05/18 05:23 Giant Platelets Not Reportable 08/05/18 05:23 Platelet Satelliting Not Reportable 08/05/18 05:23 Plt Morphology Comment Not Reportable 08/05/18 05:23 RBC Morphology Not Reportable 08/05/18 05:23 Dimorphic RBCs Not Reportable 08/05/18 05:23 Polychromasia Not Reportable 08/05/18 05:23 Hypochromasia Not Reportable 08/05/18 05:23 Poikilocytosis Not Reportable 08/05/18 05:23 Anisocytosis 1+ 08/05/18 05:23 Microcytosis Not Reportable 08/05/18 05:23 Macrocytosis Not Reportable 08/05/18 05:23 Spherocytes Not Reportable 08/05/18 05:23 Pappenheimer Bodies Not Reportable 08/05/18 05:23 Sickle Cells Not Reportable 08/05/18 05:23 Target Cells Not Reportable 08/05/18 05:23 Tear Drop Cells Not Reportable 08/05/18 05:23 Ovalocytes Few 08/05/18 05:23 Helmet Cells Rare 08/05/18 05:23 Young-Felsenthal Bodies Not Reportable 08/05/18 05:23 [place] Rings Not Reportable 08/05/18 05:23 Lauren Cells Not Reportable 08/05/18 05:23 Bite Cells Not Reportable 08/05/18 05:23 Crenated Cell Not Reportable 08/05/18 05:23 Elliptocytes Not Reportable 08/05/18 05:23 Acanthocytes (Spur) Not Reportable 08/05/18 05:23 Rouleaux Not Reportable 08/05/18 05:23 Hemoglobin C Crystals Not Reportable 08/05/18 05:23 Schistocytes Not Reportable 08/05/18 05:23 Malaria parasites Not Reportable 08/05/18 05:23 ESR 4 mm/Hr (0-20) 08/02/18 Unknown [place]de Bodies Not Reportable 08/05/18 05:23 Hem Pathologist Commnt No 08/05/18 05:23 Sodium 135 mmol/L (137-145) L 08/07/18 08:40 Potassium 3.5 mmol/L (3.6-5.0) L 08/07/18 08:40 Chloride 102.8 mmol/L (98-107) 08/07/18 08:40 Carbon Dioxide 21 mmol/L (22-30) L 08/07/18 08:40 Anion Gap 15 mmol/L 08/07/18 08:40 BUN 15 mg/dL (7-17) 08/07/18 08:40 Creatinine 0.8 mg/dL (0.7-1.2) 08/07/18 08:40 Estimated GFR > 60 ml/min 08/07/18 08:40 BUN/Creatinine Ratio 19 % 08/07/18 08:40 Glucose 86 mg/dL (65-100) 08/07/18 08:40 Lactic Acid 0.50 mmol/L (0.7-2.0) L 08/03/18 16:18 Calcium 8.5 mg/dL (8.4-10.2) 08/07/18 08:40 Total Bilirubin 0.20 mg/dL (0.1-1.2) 08/07/18 08:40 AST 202 units/L (5-40) H 08/07/18 08:40 ALT 69 units/L (7-56) H 08/07/18 08:40 Alkaline Phosphatase 71 units/L (35-129) 08/07/18 08:40 Total Creatine Kinase 605 units/L (30-135) H 08/02/18 Unknown CK-MB (CK-2) 285.3 ng/mL (0.0-4.0) H 08/02/18 Unknown CK-MB (CK-2) Rel Index 47.1 (0-4) H 08/02/18 Unknown Troponin T < 0.010 ng/mL (0.00-0.029) 08/02/18 Unknown C-Reactive Protein 22.40 mg/dL (0.00-1.30) H 08/07/18 13:56 Total Protein 6.2 g/dL (6.3-8.2) L 08/07/18 08:40 Albumin 2.6 g/dL (3.9-5) L 08/07/18 08:40 Albumin/Globulin Ratio 0.7 % 08/07/18 08:40 HCG, Qual Negative (Negative) 08/02/18 Unknown Urine Color Lori (Yellow) 08/02/18 10:24 Urine Turbidity Cloudy (Clear) 08/02/18 10:24 Urine pH 6.0 (5.0-7.0) 08/02/18 10:24 Ur Specific [place] 1.020 (1.003-1.030) 08/02/18 10:24 Urine Protein 100 mg/dl mg/dL (Negative) 08/02/18 10:24 Urine Glucose (UA) Neg mg/dL (Negative) 08/02/18 10:24 Urine Ketones Neg mg/dL (Negative) 08/02/18 10:24 Urine Blood Lg (Negative) 08/02/18 10:24 Urine Nitrite Neg (Negative) 08/02/18 10:24 Urine Bilirubin Neg (Negative) 08/02/18 10:24 Urine Urobilinogen 2.0 mg/dL (<2.0) 08/02/18 10:24 Ur Leukocyte Esterase Neg (Negative) 08/02/18 10:24 Urine WBC (Auto) 7.0 /HPF (0.0-6.0) H 08/02/18 10:24 Urine RBC (Auto) 3.0 /HPF (0.0-6.0) 08/02/18 10:24 U Epithel Cells (Auto) 4.0 /HPF (0-13.0) 08/02/18 10:24 Urine Mucus 2+ /HPF 08/02/18 10:24 Urine HCG, Qual Negative (Negative) 08/02/18 10:24 Vancomycin Trough 18.2 ug/mL (5.0-20.0) 08/06/18 10:42 Urine Opiates Screen Presumptive negative 08/02/18 10:33 Urine Methadone Screen Presumptive negative 08/02/18 10:33 Ur Barbiturates Screen Presumptive negative 08/02/18 10:33 Ur Phencyclidine Scrn Presumptive negative 08/02/18 10:33 Ur Amphetamines Screen Presumptive negative 08/02/18 10:33 U Benzodiazepines Scrn Presumptive positive 08/02/18 10:33 Urine Cocaine Screen Presumptive negative 08/02/18 10:33 U Marijuana (THC) Screen Presumptive negative 08/02/18 10:33 Drugs of Abuse Note Disclamer 08/02/18 10:33
[2018-08-07] MEDS ORDERED: CEFTIN PO SCH (22:00)
[2018-08-07] MEDS ORDERED: FLAGYL PO SCH (22:00)
[2018-08-07] MEDS: DESYREL PO SCH (22:23)
[2018-08-07] MEDS: SINEquan PO SCH ×2 (22:24→22:26)
[2018-08-07] MEDS: FLAGYL PO SCH (22:26)
[2018-08-07] MEDS: MAXIPIME/NS 2 GM/100 ML 2 GM/100 ML BAG IV SCH (22:28)
[2018-08-08] MEDS: PERCOCET 5/325 PO PRN (06:32)
[2018-08-08] MEDS: HEPARIN SUB-Q SCH ×3 (06:34→22:26)
[2018-08-08] MEDS: FLAGYL PO SCH ×3 (06:35→22:24)
[2018-08-08] MEDS: LYRICA PO SCH ×3 (08:34→21:22)
[2018-08-08] MEDS: XANAX PO SCH ×3 (08:35→21:23)
[2018-08-08] MEDS: BUSPAR PO SCH ×3 (08:49→21:22)
[2018-08-08] MEDS: LaMICtal PO SCH ×2 (09:07→22:19)
[2018-08-08] MEDS: TOPAMAX PO SCH ×2 (09:07→22:21)
[2018-08-08] MEDS: GEODON PO SCH ×2 (09:08→22:20)
[2018-08-08] MEDS: MAXIPIME/NS 2 GM/100 ML 2 GM/100 ML BAG IV SCH ×2 (09:08→21:23)
[2018-08-08] MEDS: PEPCID PO SCH ×2 (09:08→22:21)
[2018-08-08] MEDS: SODIUM CHLORIDE FLUSH SYRINGE 10 ML IV SCH ×2 (09:08→22:25)
--- NOTE | 2018-08-08 09:59 | Progress Note ---
Assessment and Plan Cultures: 08/02/2018 Urine: 10-100,000 for mixed culture > 2 organisms 08/02/2018 Blood:no growth to date 08/04/18: Left foot anaerobic: no growth to date 08/04/18: Left leg anaerobic culture: no growth to date 08/04/18: Surgical Biopsy left leg: no growth to date 08/04/18: Surgical left leg: no growth to date A/P: 42-year-old female with a past medical history of Fibromyalgia, noncompliant with rheumatologic medicaiton, Asthma, obesity and medication noncompliance, admitted with: 1. SIRS vs Sepsis: Resolved, evidenced by leukocytois, tachycardia and elevated lactic acid, etiology most likely LLE cellulites, +/- Fibromyalgia, receiving steroid therapy, no fevers. Chest xray shows no consolidation, U/A with pyuria, urine culture shows 10-100,000 for mixed culture > 2 organisms, Blood cultures were drawn and are pending. Currently being treated with cefepime. Discontnue Cefepime, start Vancomycin and Unasyn. 2. Dog Bite Associated Cellulitis LLE versus necrotizing infection: Unable to exam at beside due to extreme tenderness, LLE edematous and warm, admission pictures show blistering to the left lower limb and ankle. Admits to dog bite 2 days ago. DDX Pasteurella/Capnocytophaga/MRSA Arterial Doppler: No evidence of deep venous thrombosis of the right lower extremity. Poor visualization of the left posterior tibial vein, and peroneal vein at the and deep venous thrombosis cannot be fully excluded. CRP 7.40 s/p LLE exploration and biopsy 08/04/18 - No evidence found in OR of necrotizing fasciitis. no purulent fluid. Only edema seen. 3. Mild Pyuria: U/A pyuria w/o leukocyte esterase, urine culture mixed greater than 2 organisms 4. 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 Acute Encephalopathy: Continuing . difficulty with memory for the past two days. Head CT within normal limits ? from severe sepsis from skin infection - will order psychiatric evaluation Plan: -Continue Cefepime 2gs IV every 12 hours, D2 -Continue Flagyl 500mg PO every 8 hours, D2 -f/u DETXER, ANCA, C3, C4 -f/u Psychiatric consult - pending -Anticipate discharge on Ceftin 500mg Po every 12 hours, Doxycycline 100 mg Po every 12 hours and Flagyl 500 mg PO q 8 hours for total 10 days ending 08-13-18 -Continue wound care -Wound care needs to be continued outpatient [facility] M: [phone] O:[phone] Subjective Date of service: 08/08/18 Interval history: Patient seen and examined. Alsleep, difficult to arouse, non focal, continues to be non-conversant. Objective - Exam Narrative Exam: Constitutional: Asleep, difficult to arouse, non-conversant Head, Ears, Nose: Normocephalic, atraumatic. External ears, nose normal Eyes: Conjunctivae/corneas clear. No icterus. No ptosis. Neck: Supple, no meningeal signs Oral: dentition good, no thrush Cardiovascular: S1, S2 normal. Respiratory: Good air entry, clear to auscultation bilaterally GI: Soft, non-tender; bowel sounds normal. No peritoneal signs Musculoskeletal: LLE edematous, warm and tender with blistering on back of left lower limb, + dressing Skin: No rash or abscess. blistering on left lower leg- improved. Hem/Lymphatic: No palpable cervical or supraclavicular nodes. No lymphangitis Psych: Mood ok. Affect normal Neurological: Asleep, difficult to arouse - Constitutional Vitals: Vital Signs Temp Pulse Resp BP Pulse Ox 98.4 F 91 H 26 H 101/59 95 08/08/18 08:00 08/08/18 07:30 08/08/18 07:30 08/08/18 07:30 08/08/18 07:30 Temperature -Last 24 Hours Temperature 98.4 F Temperature 98.0 F Temperature 97.8 F Temperature 98.2 F Temperature 98.2 F Temperature 98.0 F Temperature 97.8 F - Labs CBC & Chem 7: 08/07/18 11:02 08/07/18 08:40 Labs: Abnormal lab results 08/07/18 08/07/18 08/08/18 Range/Units 11:02 13:56 00:13 RBC 3.61 L (3.65-5.03) M/mm3 RDW 15.5 H (13.2-15.2) % [place] % (Auto) 12.9 H (0.0-7.3) % Lymph # 1.1 L (1.2-5.4) K/mm3 C-Reactive Protein 22.40 H 22.10 H (0.00-1.30) mg/dL
--- NOTE | 2018-08-08 14:08 | Progress Note ---
Assessment and Plan Assessment and plan: Sepsis secondary to cellulitis ID suspected necrotizing cellulitis - Surgery was consulted and did exploration but no necrotizing fascitis - Patient is on cefepime and metronidazole - Doppler negative - ID following - CT head is negative Toxic metabolic encephalopathy. Improved. Continue to treat underlying causes. Depression, bipolar disorder, schizophrenia - Continue home medications Fibromyalgia: - Pain control - Continue home medications DVT prophylaxis - On heparin Disposition - continue inpatient care. Prognosis; Guarded History Interval history: No new issues overnight Hospitalist Physical - Constitutional Vitals: Temp Pulse Resp BP Pulse Ox 98.4 F 83 20 97/58 99 08/08/18 12:00 08/08/18 13:10 08/08/18 13:10 08/08/18 13:10 08/08/18 13:10 General appearance: Present: no acute distress - EENT Eyes: Present: PERRL, EOM intact ENT: hearing intact, clear oral mucosa, dentition normal - Neck Neck: Present: supple, normal ROM - Respiratory Respiratory effort: normal Respiratory: bilateral: CTA - Cardiovascular Rhythm: regular Heart Sounds: Present: S1 & S2. Absent: gallop, rub - Extremities Extremities: no ischemia, No edema, Full ROM - Abdominal General gastrointestinal: soft, non-tender, non-distended, normal bowel sounds - Integumentary Integumentary: Present: clear, warm, dry - Neurologic Neurologic: CNII-XII intact, moves all extremities Results - Labs CBC & Chem 7: 08/07/18 11:02 08/07/18 08:40 Labs: Laboratory Last Values WBC 6.0 K/mm3 (4.5-11.0) 08/07/18 11:02 RBC 3.61 M/mm3 (3.65-5.03) L 08/07/18 11:02 Hgb 11.3 gm/dl (10.1-14.3) 08/07/18 11:02 Hct 33.7 % (30.3-42.9) 08/07/18 11:02 MCV 93 fl (79-97) 08/07/18 11:02 MCH 31 pg (28-32) 08/07/18 11:02 MCHC 34 % (30-34) 08/07/18 11:02 RDW 15.5 % (13.2-15.2) H 08/07/18 11:02 Plt Count 315 K/mm3 (140-440) 08/07/18 11:02 Lymph % (Auto) 17.7 % (13.4-35.0) 08/07/18 11:02 [place] % (Auto) 12.9 % (0.0-7.3) H 08/07/18 11:02 Eos % (Auto) 2.0 % (0.0-4.3) 08/07/18 11:02 Baso % (Auto) 0.8 % (0.0-1.8) 08/07/18 11:02 Lymph # 1.1 K/mm3 (1.2-5.4) L 08/07/18 11:02 [place] # 0.8 K/mm3 (0.0-0.8) 08/07/18 11:02 Eos # 0.1 K/mm3 (0.0-0.4) 08/07/18 11:02 Baso # 0.0 K/mm3 (0.0-0.1) 08/07/18 11:02 Add Manual Diff Complete 08/05/18 05:23 Total Counted 100 08/05/18 05:23 Seg Neutrophils % 66.6 % (40.0-70.0) 08/07/18 11:02 Seg Neuts % (Manual) 95.0 % (40.0-70.0) H 08/05/18 05:23 Band Neutrophils % 0 % 08/05/18 05:23 Lymphocytes % (Manual) 3.0 % (13.4-35.0) L 08/05/18 05:23 Reactive Lymphs % (Man) 0 % 08/05/18 05:23 Monocytes % (Manual) 2.0 % (0.0-7.3) 08/05/18 05:23 Eosinophils % (Manual) 0 % (0.0-4.3) 08/05/18 05:23 Basophils % (Manual) 0 % (0.0-1.8) 08/05/18 05:23 Metamyelocytes % 0 % 08/05/18 05:23 Myelocytes % 0 % 08/05/18 05:23 Promyelocytes % 0 % 08/05/18 05:23 Blast Cells % 0 % 08/05/18 05:23 Nucleated RBC % Not Reportable 08/05/18 05:23 Seg Neutrophils # 4.0 K/mm3 (1.8-7.7) 08/07/18 11:02 Seg Neutrophils # Man 13.2 K/mm3 (1.8-7.7) H 08/05/18 05:23 Band Neutrophils # 0.0 K/mm3 08/05/18 05:23 Lymphocytes # (Manual) 0.4 K/mm3 (1.2-5.4) L 08/05/18 05:23 Abs React Lymphs (Man) 0.0 K/mm3 08/05/18 05:23 Monocytes # (Manual) 0.3 K/mm3 (0.0-0.8) 08/05/18 05:23 Eosinophils # (Manual) 0.0 K/mm3 (0.0-0.4) 08/05/18 05:23 Basophils # (Manual) 0.0 K/mm3 (0.0-0.1) 08/05/18 05:23 Metamyelocytes # 0.0 K/mm3 08/05/18 05:23 Myelocytes # 0.0 K/mm3 08/05/18 05:23 Promyelocytes # 0.0 K/mm3 08/05/18 05:23 Blast Cells # 0.0 K/mm3 08/05/18 05:23 WBC Morphology Not Reportable 08/05/18 05:23 Hypersegmented Neuts Not Reportable 08/05/18 05:23 Hyposegmented Neuts Not Reportable 08/05/18 05:23 Hypogranular Neuts Not Reportable 08/05/18 05:23 Smudge Cells Not Reportable 08/05/18 05:23 Toxic Granulation Not Reportable 08/05/18 05:23 Toxic Vacuolation Not Reportable 08/05/18 05:23 Dohle Bodies Not Reportable 08/05/18 05:23 Pelger-Huet Anomaly Not Reportable 08/05/18 05:23 Tlia Rods Not Reportable 08/05/18 05:23 Platelet Estimate Appears normal 08/05/18 05:23 Clumped Platelets Not Reportable 08/05/18 05:23 Plt Clumps, EDTA Not Reportable 08/05/18 05:23 Large Platelets Not Reportable 08/05/18 05:23 Giant Platelets Not Reportable 08/05/18 05:23 Platelet Satelliting Not Reportable 08/05/18 05:23 Plt Morphology Comment Not Reportable 08/05/18 05:23 RBC Morphology Not Reportable 08/05/18 05:23 Dimorphic RBCs Not Reportable 08/05/18 05:23 Polychromasia Not Reportable 08/05/18 05:23 Hypochromasia Not Reportable 08/05/18 05:23 Poikilocytosis Not Reportable 08/05/18 05:23 Anisocytosis 1+ 08/05/18 05:23 Microcytosis Not Reportable 08/05/18 05:23 Macrocytosis Not Reportable 08/05/18 05:23 Spherocytes Not Reportable 08/05/18 05:23 Pappenheimer Bodies Not Reportable 08/05/18 05:23 Sickle Cells Not Reportable 08/05/18 05:23 Target Cells Not Reportable 08/05/18 05:23 Tear Drop Cells Not Reportable 08/05/18 05:23 Ovalocytes Few 08/05/18 05:23 Helmet Cells Rare 08/05/18 05:23 [place] Bodies Not Reportable 08/05/18 05:23 [place] Rings Not Reportable 08/05/18 05:23 [place] Cells Not Reportable 08/05/18 05:23 Bite Cells Not Reportable 08/05/18 05:23 Crenated Cell Not Reportable 08/05/18 05:23 Elliptocytes Not Reportable 08/05/18 05:23 Acanthocytes (Spur) Not Reportable 08/05/18 05:23 Rouleaux Not Reportable 08/05/18 05:23 Hemoglobin C Crystals Not Reportable 08/05/18 05:23 Schistocytes Not Reportable 08/05/18 05:23 Malaria parasites Not Reportable 08/05/18 05:23 ESR 4 mm/Hr (0-20) 08/02/18 Unknown [place]de Bodies Not Reportable 08/05/18 05:23 Hem Pathologist Commnt No 08/05/18 05:23 Sodium 135 mmol/L (137-145) L 08/07/18 08:40 Potassium 3.5 mmol/L (3.6-5.0) L 08/07/18 08:40 Chloride 102.8 mmol/L (98-107) 08/07/18 08:40 Carbon Dioxide 21 mmol/L (22-30) L 08/07/18 08:40 Anion Gap 15 mmol/L 08/07/18 08:40 BUN 15 mg/dL (7-17) 08/07/18 08:40 Creatinine 0.8 mg/dL (0.7-1.2) 08/07/18 08:40 Estimated GFR > 60 ml/min 08/07/18 08:40 BUN/Creatinine Ratio 19 % 08/07/18 08:40 Glucose 86 mg/dL (65-100) 08/07/18 08:40 Lactic Acid 0.50 mmol/L (0.7-2.0) L 08/03/18 16:18 Calcium 8.5 mg/dL (8.4-10.2) 08/07/18 08:40 Total Bilirubin 0.20 mg/dL (0.1-1.2) 08/07/18 08:40 AST 202 units/L (5-40) H 08/07/18 08:40 ALT 69 units/L (7-56) H 08/07/18 08:40 Alkaline Phosphatase 71 units/L (35-129) 08/07/18 08:40 Total Creatine Kinase 605 units/L (30-135) H 08/02/18 Unknown CK-MB (CK-2) 285.3 ng/mL (0.0-4.0) H 08/02/18 Unknown CK-MB (CK-2) Rel Index 47.1 (0-4) H 08/02/18 Unknown Troponin T < 0.010 ng/mL (0.00-0.029) 08/02/18 Unknown C-Reactive Protein 22.10 mg/dL (0.00-1.30) H 08/08/18 00:13 Total Protein 6.2 g/dL (6.3-8.2) L 08/07/18 08:40 Albumin 2.6 g/dL (3.9-5) L 08/07/18 08:40 Albumin/Globulin Ratio 0.7 % 08/07/18 08:40 HCG, Qual Negative (Negative) 08/02/18 Unknown Urine Color Lori (Yellow) 08/02/18 10:24 Urine Turbidity Cloudy (Clear) 08/02/18 10:24 Urine pH 6.0 (5.0-7.0) 08/02/18 10:24 Ur Specific [place] 1.020 (1.003-1.030) 08/02/18 10:24 Urine Protein 100 mg/dl mg/dL (Negative) 08/02/18 10:24 Urine Glucose (UA) Neg mg/dL (Negative) 08/02/18 10:24 Urine Ketones Neg mg/dL (Negative) 08/02/18 10:24 Urine Blood Lg (Negative) 08/02/18 10:24 Urine Nitrite Neg (Negative) 08/02/18 10:24 Urine Bilirubin Neg (Negative) 08/02/18 10:24 Urine Urobilinogen 2.0 mg/dL (<2.0) 08/02/18 10:24 Ur Leukocyte Esterase Neg (Negative) 08/02/18 10:24 Urine WBC (Auto) 7.0 /HPF (0.0-6.0) H 08/02/18 10:24 Urine RBC (Auto) 3.0 /HPF (0.0-6.0) 08/02/18 10:24 U Epithel Cells (Auto) 4.0 /HPF (0-13.0) 08/02/18 10:24 Urine Mucus 2+ /HPF 08/02/18 10:24 Urine HCG, Qual Negative (Negative) 08/02/18 10:24 Vancomycin Trough 18.2 ug/mL (5.0-20.0) 08/06/18 10:42 Urine Opiates Screen Presumptive negative 08/02/18 10:33 Urine Methadone Screen Presumptive negative 08/02/18 10:33 Ur Barbiturates Screen Presumptive negative 08/02/18 10:33 Ur Phencyclidine Scrn Presumptive negative 08/02/18 10:33 Ur Amphetamines Screen Presumptive negative 08/02/18 10:33 U Benzodiazepines Scrn Presumptive positive 08/02/18 10:33 Urine Cocaine Screen Presumptive negative 08/02/18 10:33 U Marijuana (THC) Screen Presumptive negative 08/02/18 10:33 Drugs of Abuse Note Disclamer 08/02/18 10:33
[2018-08-08] MEDS: DESYREL PO SCH (22:21)
[2018-08-08] MEDS: SINEquan PO SCH ×2 (22:22)
[2018-08-09 01:16] LABS: Basophils # (Auto) 0.1 K/mm3 (0.0-0.1); Basophils % (Auto) 0.8 % (0.0-1.8); Eosinophils # (Auto) 0.2 K/mm3 (0.0-0.4); Eosinophils % (Auto) 2.3 % (0.0-4.3); Hematocrit 35.9 % (30.3-42.9); Lymphocytes # (Auto) 1.6 K/mm3 (1.2-5.4); Lymphocytes % (Auto) 15.6 % (13.4-35.0); Mean Corpuscular HGB Conc 34 % (30-34); Mean Corpuscular Volume 94 fl (79-97); Monocytes # (Auto) 1.1 K/mm3 (0.0-0.8); Platelet Count 392 K/mm3 (140-440); Red Blood Count 3.84 M/mm3 (3.65-5.03); Red Cell Distribution Width 15.3 % (13.2-15.2)
[2018-08-09] MEDS: PEPCID PO SCH ×2 (09:31→23:50)
[2018-08-09] MEDS: BUSPAR PO SCH ×3 (09:31→20:24)
[2018-08-09] MEDS: LYRICA PO SCH ×3 (09:31→20:24)
[2018-08-09] MEDS: LaMICtal PO SCH ×2 (09:32→23:50)
[2018-08-09] MEDS: SODIUM CHLORIDE FLUSH SYRINGE 10 ML IV SCH ×2 (09:32→23:50)
[2018-08-09] MEDS: TOPAMAX PO SCH ×2 (09:32→23:50)
[2018-08-09] MEDS: MAXIPIME/NS 2 GM/100 ML 2 GM/100 ML BAG IV SCH ×2 (09:33→23:50)
[2018-08-09] MEDS: XANAX PO SCH ×3 (09:33→20:25)
[2018-08-09] MEDS: HEPARIN SUB-Q SCH ×3 (09:35→23:50)
[2018-08-09] MEDS: FLAGYL PO SCH ×3 (09:35→23:50)
--- NOTE | 2018-08-09 10:38 | Progress Note ---
Assessment and Plan Cultures: 08/02/2018 Urine: 10-100,000 for mixed culture > 2 organisms 08/02/2018 Blood:no growth to date 08/04/18: Left foot anaerobic: no growth to date 08/04/18: Left leg anaerobic culture: no growth to date 08/04/18: Surgical Biopsy left leg: no growth to date 08/04/18: Surgical left leg: no growth to date A/P: 42-year-old female with a past medical history of Fibromyalgia, noncompliant with rheumatologic medicaiton, Asthma, obesity and medication noncompliance, admitted with: 1. SIRS vs Sepsis: Resolved, evidenced by leukocytois, tachycardia and elevated lactic acid, etiology most likely LLE cellulites, +/- Fibromyalgia, receiving steroid therapy, no fevers. Chest xray shows no consolidation, U/A with pyuria, urine culture shows 10-100,000 for mixed culture > 2 organisms, Blood cultures were drawn and are pending. Currently being treated with cefepime. Discontnue Cefepime, start Vancomycin and Unasyn. 2. Dog Bite Associated Cellulitis LLE versus necrotizing infection: Unable to exam at beside due to extreme tenderness, LLE edematous and warm, admission pictures show blistering to the left lower limb and ankle. Admits to dog bite 2 days ago. DDX Pasteurella/Capnocytophaga/MRSA Arterial Doppler: No evidence of deep venous thrombosis of the right lower extremity. Poor visualization of the left posterior tibial vein, and peroneal vein at the and deep venous thrombosis cannot be fully excluded. CRP 7.40 s/p LLE exploration and biopsy 08/04/18 - No evidence found in OR of necrotizing fasciitis. no purulent fluid. Only edema seen CRP 22.10 3. Mild Pyuria: U/A pyuria w/o leukocyte esterase, urine culture mixed greater than 2 organisms 4. 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 Acute Encephalopathy: Improved, difficulty with memory for the past two days. Head CT within normal limits ? from severe sepsis from skin infection - will order psychiatric evaluation Plan: -Continue Cefepime 2gs IV every 12 hours, D3 -Continue Flagyl 500mg PO every 8 hours, D4 -f/u DEXTER, ANCA, C3, C4 -f/u Psychiatric consult - pending -Anticipate discharge on Ceftin 500mg Po every 12 hours, Doxycycline 100 mg Po every 12 hours and Flagyl 500 mg PO q 8 hours for total 10 days ending 08-13-18 -Continue wound care -Wound care needs to be continued outpatient f/u with ID clinic in 2 weeks- 08-24-18 [facility] M: [phone] O:[phone] Subjective Date of service: 08/09/18 Interval history: Patient seen and examined. Alert, conversant. Continues to have left leg pain. Objective - Exam Narrative Exam: Constitutional: Awake, alert, mild distress Head, Ears, Nose: Normocephalic, atraumatic. External ears, nose normal Eyes: Conjunctivae/corneas clear. No icterus. No ptosis. Neck: Supple, no meningeal signs Oral: dentition good, no thrush Cardiovascular: S1, S2 normal. Respiratory: Good air entry, clear to auscultation bilaterally GI: Soft, non-tender; bowel sounds normal. No peritoneal signs Musculoskeletal: LLE edematous, warm and tender with blistering on back of left lower limb, + dressing Skin: No rash or abscess. blistering on left lower leg- improved. Hem/Lymphatic: No palpable cervical or supraclavicular nodes. No lymphangitis Psych: Mood ok. Affect flat Neurological: Awake, alert, Oriented to self and place - Constitutional Vitals: Vital Signs Temp Pulse Resp BP Pulse Ox 98.8 F 85 14 105/61 100 08/09/18 08:00 08/09/18 10:10 08/09/18 10:10 08/09/18 10:10 08/09/18 09:20 Temperature -Last 24 Hours Temperature 98.8 F Temperature 97.2 F Temperature 98.2 F Temperature 99.1 F Temperature 98.2 F Temperature 98.4 F Temperature 98.4 F - Labs CBC & Chem 7: 08/09/18 00:55 08/07/18 08:40 Labs: Abnormal lab results 08/09/18 Range/Units 00:55 RDW 15.3 H (13.2-15.2) % [place] % (Auto) 11.0 H (0.0-7.3) % [place] # 1.1 H (0.0-0.8) K/mm3 Seg Neutrophils % 70.3 H (40.0-70.0) %
--- NOTE | 2018-08-09 11:56 | Progress Note ---
Assessment and Plan Assessment and plan: Sepsis secondary to cellulitis ID suspected necrotizing cellulitis - Surgery was consulted and did exploration but no necrotizing fascitis - Patient is on cefepime and metronidazole - Doppler negative - ID following - CT head is negative Toxic metabolic encephalopathy. Resolved. Continue to treat underlying causes. Depression, bipolar disorder, schizophrenia - Continue home medications Fibromyalgia: - Pain control - Continue home medications DVT prophylaxis - On heparin Disposition - continue inpatient care. Prognosis; Guarded History Interval history: No new issues overnight Hospitalist Physical - Constitutional Vitals: Temp Pulse Resp BP Pulse Ox 98.8 F 85 14 105/61 100 08/09/18 08:00 08/09/18 10:10 08/09/18 10:10 08/09/18 10:10 08/09/18 09:20 General appearance: Present: no acute distress - EENT Eyes: Present: PERRL, EOM intact ENT: hearing intact, clear oral mucosa, dentition normal - Neck Neck: Present: supple, normal ROM - Respiratory Respiratory effort: normal Respiratory: bilateral: CTA - Cardiovascular Rhythm: regular Heart Sounds: Present: S1 & S2. Absent: gallop, rub - Extremities Extremities: no ischemia, No edema, Full ROM - Abdominal General gastrointestinal: soft, non-tender, non-distended, normal bowel sounds - Integumentary Integumentary: Present: clear, warm, dry - Neurologic Neurologic: CNII-XII intact, moves all extremities Results - Labs CBC & Chem 7: 08/09/18 00:55 08/07/18 08:40 Labs: Laboratory Last Values WBC 10.0 K/mm3 (4.5-11.0) 08/09/18 00:55 RBC 3.84 M/mm3 (3.65-5.03) 08/09/18 00:55 Hgb 12.0 gm/dl (10.1-14.3) 08/09/18 00:55 Hct 35.9 % (30.3-42.9) 08/09/18 00:55 MCV 94 fl (79-97) 08/09/18 00:55 MCH 31 pg (28-32) 08/09/18 00:55 MCHC 34 % (30-34) 08/09/18 00:55 RDW 15.3 % (13.2-15.2) H 08/09/18 00:55 Plt Count 392 K/mm3 (140-440) 08/09/18 00:55 Lymph % (Auto) 15.6 % (13.4-35.0) 08/09/18 00:55 [place] % (Auto) 11.0 % (0.0-7.3) H 08/09/18 00:55 Eos % (Auto) 2.3 % (0.0-4.3) 08/09/18 00:55 Baso % (Auto) 0.8 % (0.0-1.8) 08/09/18 00:55 Lymph # 1.6 K/mm3 (1.2-5.4) 08/09/18 00:55 [place] # 1.1 K/mm3 (0.0-0.8) H 08/09/18 00:55 Eos # 0.2 K/mm3 (0.0-0.4) 08/09/18 00:55 Baso # 0.1 K/mm3 (0.0-0.1) 08/09/18 00:55 Add Manual Diff Complete 08/05/18 05:23 Total Counted 100 08/05/18 05:23 Seg Neutrophils % 70.3 % (40.0-70.0) H 08/09/18 00:55 Seg Neuts % (Manual) 95.0 % (40.0-70.0) H 08/05/18 05:23 Band Neutrophils % 0 % 08/05/18 05:23 Lymphocytes % (Manual) 3.0 % (13.4-35.0) L 08/05/18 05:23 Reactive Lymphs % (Man) 0 % 08/05/18 05:23 Monocytes % (Manual) 2.0 % (0.0-7.3) 08/05/18 05:23 Eosinophils % (Manual) 0 % (0.0-4.3) 08/05/18 05:23 Basophils % (Manual) 0 % (0.0-1.8) 08/05/18 05:23 Metamyelocytes % 0 % 08/05/18 05:23 Myelocytes % 0 % 08/05/18 05:23 Promyelocytes % 0 % 08/05/18 05:23 Blast Cells % 0 % 08/05/18 05:23 Nucleated RBC % Not Reportable 08/05/18 05:23 Seg Neutrophils # 7.0 K/mm3 (1.8-7.7) 08/09/18 00:55 Seg Neutrophils # Man 13.2 K/mm3 (1.8-7.7) H 08/05/18 05:23 Band Neutrophils # 0.0 K/mm3 08/05/18 05:23 Lymphocytes # (Manual) 0.4 K/mm3 (1.2-5.4) L 08/05/18 05:23 Abs React Lymphs (Man) 0.0 K/mm3 08/05/18 05:23 Monocytes # (Manual) 0.3 K/mm3 (0.0-0.8) 08/05/18 05:23 Eosinophils # (Manual) 0.0 K/mm3 (0.0-0.4) 08/05/18 05:23 Basophils # (Manual) 0.0 K/mm3 (0.0-0.1) 08/05/18 05:23 Metamyelocytes # 0.0 K/mm3 08/05/18 05:23 Myelocytes # 0.0 K/mm3 08/05/18 05:23 Promyelocytes # 0.0 K/mm3 08/05/18 05:23 Blast Cells # 0.0 K/mm3 08/05/18 05:23 WBC Morphology Not Reportable 08/05/18 05:23 Hypersegmented Neuts Not Reportable 08/05/18 05:23 Hyposegmented Neuts Not Reportable 08/05/18 05:23 Hypogranular Neuts Not Reportable 08/05/18 05:23 Smudge Cells Not Reportable 08/05/18 05:23 Toxic Granulation Not Reportable 08/05/18 05:23 Toxic Vacuolation Not Reportable 08/05/18 05:23 Dohle Bodies Not Reportable 08/05/18 05:23 Pelger-Huet Anomaly Not Reportable 08/05/18 05:23 [place] Rods Not Reportable 08/05/18 05:23 Platelet Estimate Appears normal 08/05/18 05:23 Clumped Platelets Not Reportable 08/05/18 05:23 Plt Clumps, EDTA Not Reportable 08/05/18 05:23 Large Platelets Not Reportable 08/05/18 05:23 Giant Platelets Not Reportable 08/05/18 05:23 Platelet Satelliting Not Reportable 08/05/18 05:23 Plt Morphology Comment Not Reportable 08/05/18 05:23 RBC Morphology Not Reportable 08/05/18 05:23 Dimorphic RBCs Not Reportable 08/05/18 05:23 Polychromasia Not Reportable 08/05/18 05:23 Hypochromasia Not Reportable 08/05/18 05:23 Poikilocytosis Not Reportable 08/05/18 05:23 Anisocytosis 1+ 08/05/18 05:23 Microcytosis Not Reportable 08/05/18 05:23 Macrocytosis Not Reportable 08/05/18 05:23 Spherocytes Not Reportable 08/05/18 05:23 Pappenheimer Bodies Not Reportable 08/05/18 05:23 Sickle Cells Not Reportable 08/05/18 05:23 Target Cells Not Reportable 08/05/18 05:23 Tear Drop Cells Not Reportable 08/05/18 05:23 Ovalocytes Few 08/05/18 05:23 Helmet Cells Rare 08/05/18 05:23 [place] Bodies Not Reportable 08/05/18 05:23 [place] Rings Not Reportable 08/05/18 05:23 [place] Cells Not Reportable 08/05/18 05:23 Bite Cells Not Reportable 08/05/18 05:23 Crenated Cell Not Reportable 08/05/18 05:23 Elliptocytes Not Reportable 08/05/18 05:23 Acanthocytes (Spur) Not Reportable 08/05/18 05:23 Rouleaux Not Reportable 08/05/18 05:23 Hemoglobin C Crystals Not Reportable 08/05/18 05:23 Schistocytes Not Reportable 08/05/18 05:23 Malaria parasites Not Reportable 08/05/18 05:23 ESR 4 mm/Hr (0-20) 08/02/18 Unknown [place] Bodies Not Reportable 08/05/18 05:23 Hem Pathologist Commnt No 08/05/18 05:23 Sodium 135 mmol/L (137-145) L 08/07/18 08:40 Potassium 3.5 mmol/L (3.6-5.0) L 08/07/18 08:40 Chloride 102.8 mmol/L (98-107) 08/07/18 08:40 Carbon Dioxide 21 mmol/L (22-30) L 08/07/18 08:40 Anion Gap 15 mmol/L 08/07/18 08:40 BUN 15 mg/dL (7-17) 08/07/18 08:40 Creatinine 0.8 mg/dL (0.7-1.2) 08/07/18 08:40 Estimated GFR > 60 ml/min 08/07/18 08:40 BUN/Creatinine Ratio 19 % 08/07/18 08:40 Glucose 86 mg/dL (65-100) 08/07/18 08:40 Lactic Acid 0.50 mmol/L (0.7-2.0) L 08/03/18 16:18 Calcium 8.5 mg/dL (8.4-10.2) 08/07/18 08:40 Total Bilirubin 0.20 mg/dL (0.1-1.2) 08/07/18 08:40 AST 202 units/L (5-40) H 08/07/18 08:40 ALT 69 units/L (7-56) H 08/07/18 08:40 Alkaline Phosphatase 71 units/L (35-129) 08/07/18 08:40 Total Creatine Kinase 605 units/L (30-135) H 08/02/18 Unknown CK-MB (CK-2) 285.3 ng/mL (0.0-4.0) H 08/02/18 Unknown CK-MB (CK-2) Rel Index 47.1 (0-4) H 08/02/18 Unknown Troponin T < 0.010 ng/mL (0.00-0.029) 08/02/18 Unknown C-Reactive Protein 22.10 mg/dL (0.00-1.30) H 08/08/18 00:13 Total Protein 6.2 g/dL (6.3-8.2) L 08/07/18 08:40 Albumin 2.6 g/dL (3.9-5) L 08/07/18 08:40 Albumin/Globulin Ratio 0.7 % 08/07/18 08:40 HCG, Qual Negative (Negative) 08/02/18 Unknown Urine Color [place]ori (Yellow) 08/02/18 10:24 Urine Turbidity Cloudy (Clear) 08/02/18 10:24 Urine pH 6.0 (5.0-7.0) 08/02/18 10:24 Ur Specific [place] 1.020 (1.003-1.030) 08/02/18 10:24 Urine Protein 100 mg/dl mg/dL (Negative) 08/02/18 10:24 Urine Glucose (UA) Neg mg/dL (Negative) 08/02/18 10:24 Urine Ketones Neg mg/dL (Negative) 08/02/18 10:24 Urine Blood Lg (Negative) 08/02/18 10:24 Urine Nitrite Neg (Negative) 08/02/18 10:24 Urine Bilirubin Neg (Negative) 08/02/18 10:24 Urine Urobilinogen 2.0 mg/dL (<2.0) 08/02/18 10:24 Ur Leukocyte Esterase Neg (Negative) 08/02/18 10:24 Urine WBC (Auto) 7.0 /HPF (0.0-6.0) H 08/02/18 10:24 Urine RBC (Auto) 3.0 /HPF (0.0-6.0) 08/02/18 10:24 U Epithel Cells (Auto) 4.0 /HPF (0-13.0) 08/02/18 10:24 Urine Mucus 2+ /HPF 08/02/18 10:24 Urine HCG, Qual Negative (Negative) 08/02/18 10:24 Vancomycin Trough 18.2 ug/mL (5.0-20.0) 08/06/18 10:42 Urine Opiates Screen Presumptive negative 08/02/18 10:33 Urine Methadone Screen Presumptive negative 08/02/18 10:33 Ur Barbiturates Screen Presumptive negative 08/02/18 10:33 Ur Phencyclidine Scrn Presumptive negative 08/02/18 10:33 Ur Amphetamines Screen Presumptive negative 08/02/18 10:33 U Benzodiazepines Scrn Presumptive positive 08/02/18 10:33 Urine Cocaine Screen Presumptive negative 08/02/18 10:33 U Marijuana (THC) Screen Presumptive negative 08/02/18 10:33 Drugs of Abuse Note Disclamer 08/02/18 10:33 Complement C3 154 mg/dL (83-193) 08/04/18 10:00 Complement C4 31 mg/dL (15-57) 08/04/18 10:03
[2018-08-09] MEDS: GEODON PO SCH ×2 (14:01→23:50)
[2018-08-09] MEDS: PERCOCET 5/325 PO PRN (20:25)
[2018-08-09 22:45] LABS: ANA Screen, IFA Negative (Negative)
[2018-08-09] MEDS: SINEquan PO SCH ×2 (23:50)
[2018-08-10] MEDS: DESYREL PO SCH ×2 (00:53→22:56)
[2018-08-10 06:24] LABS: Hematocrit 35.2 % (30.3-42.9); Hemoglobin 11.8 gm/dl (10.1-14.3); Mean Corpuscular HGB Conc 34 % (30-34); Mean Corpuscular Volume 93 fl (79-97); Platelet Count 411 K/mm3 (140-440); Red Blood Count 3.79 M/mm3 (3.65-5.03)
[2018-08-10] MEDS: FLAGYL PO SCH ×2 (06:32→22:56)
[2018-08-10] MEDS: PERCOCET 5/325 PO PRN ×3 (06:32→23:06)
[2018-08-10] MEDS: HEPARIN SUB-Q SCH ×2 (06:33→23:03)
[2018-08-10 06:50] LABS: BUN/Creatinine Ratio 27; Blood Urea Nitrogen 24 mg/dL (7-17); Calcium 8.4 mg/dL (8.4-10.2); Hemolysis Index 12
--- NOTE | 2018-08-10 07:00 | Progress Note ---
Assessment and Plan Cultures: 08/02/2018 Urine: 10-100,000 for mixed culture > 2 organisms 08/02/2018 Blood:no growth to date 08/04/18: Left foot anaerobic: no growth to date 08/04/18: Left leg anaerobic culture: no growth to date 08/04/18: Surgical Biopsy left leg: no growth to date 08/04/18: Surgical left leg: no growth to date A/P: 42-year-old female with a past medical history of Fibromyalgia, noncompliant with rheumatologic medicaiton, Asthma, obesity and medication noncompliance, admitted with: 1. SIRS vs Sepsis: Resolved, evidenced by leukocytois, tachycardia and elevated lactic acid, etiology most likely LLE cellulites, +/- Fibromyalgia, receiving steroid therapy, no fevers. Chest xray shows no consolidation, U/A with pyuria, urine culture shows 10-100,000 for mixed culture > 2 organisms, Blood cultures were drawn and are pending. Currently being treated with cefepime. Discontnue Cefepime, start Vancomycin and Unasyn. 2. Dog Bite Associated Cellulitis LLE: severe tenderness, erythema resolved. Initial felt to be a necrotizing infection. DDX Pasteurella/Capnocytophaga/MRSA Arterial Doppler: No evidence of deep venous thrombosis of the right lower extremity. Poor visualization of the left posterior tibial vein, and peroneal vein at the and deep venous thrombosis cannot be fully excluded. CRP 7.40 s/p LLE exploration and biopsy 08/04/18 - No evidence found in OR of necrotizing fasciitis. No purulent fluid. Only edema seen CRP 22.10 08/04/18: Surgical Biopsy left leg: no growth to date 08/04/18: Surgical left leg: no growth to date DEXTER neg C3/C4 normal 3. Mild Pyuria: U/A pyuria w/o leukocyte esterase, urine culture mixed greater than 2 organisms 4. 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 Acute Encephalopathy/Psych issues: Improved. Head CT within normal limits ? from severe sepsis from skin infection. Plan: - completed 4 days meropenem, vancomycin and clindamycin - Stop Cefepime 2gs IV every 12 hours, D4 - Stop Flagyl 500mg PO every 8 hours, D4 - f/u ANCA - f/u Psychiatric consult - pending - Anticipate discharge on Ceftin 500mg Po every 12 hours, Doxycycline 100 mg Po every 12 hours and Flagyl 500 mg PO q 8 hours for total 10 days ending 08-13-18 - will sign off f/u with ID clinic in 2 weeks- 08-24-18 Socorro Orantes MD Infectious Diseases Clarity Developer [facility] ([facility]) M [phone] O [phone] Subjective Date of service: 08/10/18 Principal diagnosis: dog bite cellulitis Interval history: Reports feeling better, no complaints. No fever. Review of Systems: General: no fever, chills Cutaneous: no rash, pruritus Gastrointestinal: no nausea, vomiting, diarrhea Objective - Exam Narrative Exam: General appearance: Alert in NAD, conversant Eyes: anicteric sclerae, moist conjunctivae; no lid-lag; PERRLA HENT: Atraumatic; oropharynx clear with moist mucous membranes and no mucosal ulcerations/no oral thrush; normal hard and soft palate. Normal external ears. Neck: Trachea midline; supple, no thyromegaly or lymphadenopathy Lungs: CTA, with normal respiratory effort and no intercostal retractions CV: RRR, no murmurs Abdomen: Soft, non-tender; no masses or hepatosplenomegaly Extremities: No peripheral edema or extremity lymphadenopathy Skin: left post leg limited exam due to patient lack of cooperation - there are 2 post surg wound clean, decreased erythema Psych: Appropriate affect, alert and oriented to person, place and time. Neuro: alert and oriented x 3. Moving all extermities - Constitutional Vitals: Vital Signs Temp Pulse Resp BP Pulse Ox 98.6 F 87 21 123/68 94 08/10/18 04:00 08/10/18 05:10 08/10/18 05:10 08/10/18 05:10 08/10/18 05:10 Temperature -Last 24 Hours Temperature 98.6 F Temperature 98.8 F Temperature 98.2 F Temperature 98.6 F Temperature 98.9 F Temperature 98.8 F - Labs CBC & Chem 7: 08/10/18 06:07 08/10/18 06:07 Labs: Abnormal lab results 08/10/18 Range/Units 06:07 BUN 24 H (7-17) mg/dL
[2018-08-10 08:25] LABS: Basophils % (Manual) 0 % (0.0-1.8); Myelocytes # (Manual) 0.3 K/mm3; Total Cells Counted 100
[2018-08-10 08:28] LABS: Anisocytosis Few; Macrocytosis Rare; Platelet Estimate Consistent w Auto
[2018-08-10] MEDS: SODIUM CHLORIDE FLUSH SYRINGE 10 ML IV SCH ×2 (09:42→23:02)
[2018-08-10] MEDS: GEODON PO SCH ×2 (09:42→22:58)
[2018-08-10] MEDS: TOPAMAX PO SCH ×2 (09:43→23:01)
[2018-08-10] MEDS: LaMICtal PO SCH ×2 (09:43→22:56)
[2018-08-10] MEDS: PEPCID PO SCH ×2 (09:50→22:56)
[2018-08-10] MEDS: LYRICA PO SCH ×2 (09:50→20:28)
[2018-08-10] MEDS: VIBRAMYCIN PO SCH ×2 (09:51→22:57)
[2018-08-10] MEDS: BUSPAR PO SCH ×3 (09:54→20:27)
[2018-08-10] MEDS: XANAX PO SCH ×2 (09:54→20:28)
[2018-08-10] MEDS: CEFTIN PO SCH ×2 (10:11→23:00)
--- NOTE | 2018-08-10 11:41 | Progress Note ---
Assessment and Plan Assessment and plan: Sepsis secondary to cellulitis Dog bite associated left lower extremity cellulitis No evidence of necrotizing fasciitis. Surgical biopsy of left leg with no growth to date. Toxic metabolic encephalopathy. Resolved. Continue to treat underlying causes. Depression, bipolar disorder, schizophrenia - Continue home medications Fibromyalgia: - Pain control - Continue home medications DVT prophylaxis - On heparin Disposition - continue inpatient care. Await PT recommendations for discharge. Patient will be transferred to [facility] [place] floor. History Interval history: No new issues overnight Hospitalist Physical - Constitutional Vitals: Temp Pulse Resp BP Pulse Ox 98.7 F 81 17 107/66 95 08/10/18 08:00 08/10/18 09:30 08/10/18 09:30 08/10/18 09:30 08/10/18 09:30 General appearance: Present: no acute distress - EENT Eyes: Present: PERRL, EOM intact ENT: hearing intact, clear oral mucosa, dentition normal - Neck Neck: Present: supple, normal ROM - Respiratory Respiratory effort: normal Respiratory: bilateral: CTA - Cardiovascular Rhythm: regular Heart Sounds: Present: S1 & S2. Absent: gallop, rub - Extremities Extremities: no ischemia, No edema, Full ROM Extremity abnormal: edema (left lower extremity), ulceration (left lower extremi ty), tenderness (left lower extremity), other (wound VAC to left lower extremity) - Abdominal General gastrointestinal: soft, non-tender, non-distended, normal bowel sounds - Integumentary Integumentary: Present: clear, warm, dry - Neurologic Neurologic: CNII-XII intact, moves all extremities Results - Labs CBC & Chem 7: 08/10/18 06:07 08/10/18 06:07 Labs: Laboratory Last Values WBC 8.6 K/mm3 (4.5-11.0) 08/10/18 06:07 RBC 3.79 M/mm3 (3.65-5.03) 08/10/18 06:07 Hgb 11.8 gm/dl (10.1-14.3) 08/10/18 06:07 Hct 35.2 % (30.3-42.9) 08/10/18 06:07 MCV 93 fl (79-97) 08/10/18 06:07 MCH 31 pg (28-32) 08/10/18 06:07 MCHC 34 % (30-34) 08/10/18 06:07 RDW 15.0 % (13.2-15.2) 08/10/18 06:07 Plt Count 411 K/mm3 (140-440) 08/10/18 06:07 Lymph % (Auto) 15.6 % (13.4-35.0) 08/09/18 00:55 [place] % (Auto) 11.0 % (0.0-7.3) H 08/09/18 00:55 Eos % (Auto) 2.3 % (0.0-4.3) 08/09/18 00:55 Baso % (Auto) 0.8 % (0.0-1.8) 08/09/18 00:55 Lymph # 1.6 K/mm3 (1.2-5.4) 08/09/18 00:55 [place] # 1.1 K/mm3 (0.0-0.8) H 08/09/18 00:55 Eos # 0.2 K/mm3 (0.0-0.4) 08/09/18 00:55 Baso # 0.1 K/mm3 (0.0-0.1) 08/09/18 00:55 Add Manual Diff Complete 08/10/18 06:07 Total Counted 100 08/10/18 06:07 Seg Neutrophils % 70.3 % (40.0-70.0) H 08/09/18 00:55 Seg Neuts % (Manual) 65.0 % (40.0-70.0) 08/10/18 06:07 Band Neutrophils % 0 % 08/10/18 06:07 Lymphocytes % (Manual) 16.0 % (13.4-35.0) 08/10/18 06:07 Reactive Lymphs % (Man) 0 % 08/10/18 06:07 Monocytes % (Manual) 13.0 % (0.0-7.3) H 08/10/18 06:07 Eosinophils % (Manual) 3.0 % (0.0-4.3) 08/10/18 06:07 Basophils % (Manual) 0 % (0.0-1.8) 08/10/18 06:07 Metamyelocytes % 0 % 08/10/18 06:07 Myelocytes % 3.0 % 08/10/18 06:07 Promyelocytes % 0 % 08/10/18 06:07 Blast Cells % 0 % 08/10/18 06:07 Nucleated RBC % Not Reportable 08/10/18 06:07 Seg Neutrophils # 7.0 K/mm3 (1.8-7.7) 08/09/18 00:55 Seg Neutrophils # Man 5.6 K/mm3 (1.8-7.7) 08/10/18 06:07 Band Neutrophils # 0.0 K/mm3 08/10/18 06:07 Lymphocytes # (Manual) 1.4 K/mm3 (1.2-5.4) 08/10/18 06:07 Abs React Lymphs (Man) 0.0 K/mm3 08/10/18 06:07 Monocytes # (Manual) 1.1 K/mm3 (0.0-0.8) H 08/10/18 06:07 Eosinophils # (Manual) 0.3 K/mm3 (0.0-0.4) 08/10/18 06:07 Basophils # (Manual) 0.0 K/mm3 (0.0-0.1) 08/10/18 06:07 Metamyelocytes # 0.0 K/mm3 08/10/18 06:07 Myelocytes # 0.3 K/mm3 08/10/18 06:07 Promyelocytes # 0.0 K/mm3 08/10/18 06:07 Blast Cells # 0.0 K/mm3 08/10/18 06:07 WBC Morphology Not Reportable 08/10/18 06:07 Hypersegmented Neuts Not Reportable 08/10/18 06:07 Hyposegmented Neuts Not Reportable 08/10/18 06:07 Hypogranular Neuts Not Reportable 08/10/18 06:07 Smudge Cells Not Reportable 08/10/18 06:07 Toxic Granulation Not Reportable 08/10/18 06:07 Toxic Vacuolation Not Reportable 08/10/18 06:07 Dohle Bodies Not Reportable 08/10/18 06:07 Pelger-Huet Anomaly Not Reportable 08/10/18 06:07 Tila Rods Not Reportable 08/10/18 06:07 Platelet Estimate Consistent w auto 08/10/18 06:07 Clumped Platelets Not Reportable 08/10/18 06:07 Plt Clumps, EDTA Not Reportable 08/10/18 06:07 Large Platelets Not Reportable 08/10/18 06:07 Giant Platelets Not Reportable 08/10/18 06:07 Platelet Satelliting Not Reportable 08/10/18 06:07 Plt Morphology Comment Not Reportable 08/10/18 06:07 RBC Morphology Not Reportable 08/10/18 06:07 Dimorphic RBCs Not Reportable 08/10/18 06:07 Polychromasia Not Reportable 08/10/18 06:07 Hypochromasia Not Reportable 08/10/18 06:07 Poikilocytosis Not Reportable 08/10/18 06:07 Anisocytosis Few 08/10/18 06:07 Microcytosis Not Reportable 08/10/18 06:07 Macrocytosis Rare 08/10/18 06:07 Spherocytes Not Reportable 08/10/18 06:07 Pappenheimer Bodies Not Reportable 08/10/18 06:07 Sickle Cells Not Reportable 08/10/18 06:07 Target Cells Not Reportable 08/10/18 06:07 Tear Drop Cells Not Reportable 08/10/18 06:07 Ovalocytes Not Reportable 08/10/18 06:07 Helmet Cells Not Reportable 08/10/18 06:07 [place] Bodies Not Reportable 08/10/18 06:07 Cora Rings Not Reportable 08/10/18 06:07 [place] Cells Not Reportable 08/10/18 06:07 Bite Cells Not Reportable 08/10/18 06:07 Crenated Cell Not Reportable 08/10/18 06:07 Elliptocytes Not Reportable 08/10/18 06:07 Acanthocytes (Spur) Not Reportable 08/10/18 06:07 Rouleaux Not Reportable 08/10/18 06:07 Hemoglobin C Crystals Not Reportable 08/10/18 06:07 Schistocytes Not Reportable 08/10/18 06:07 Malaria parasites Not Reportable 08/10/18 06:07 ESR 4 mm/Hr (0-20) 08/02/18 Unknown [place]de Bodies Not Reportable 08/10/18 06:07 Hem Pathologist Commnt No 08/10/18 06:07 Sodium 139 mmol/L (137-145) 08/10/18 06:07 Potassium 3.6 mmol/L (3.6-5.0) 08/10/18 06:07 Chloride 103.7 mmol/L (98-107) 08/10/18 06:07 Carbon Dioxide 23 mmol/L (22-30) 08/10/18 06:07 Anion Gap 16 mmol/L 08/10/18 06:07 BUN 24 mg/dL (7-17) H 08/10/18 06:07 Creatinine 0.9 mg/dL (0.7-1.2) 08/10/18 06:07 Estimated GFR > 60 ml/min 08/10/18 06:07 BUN/Creatinine Ratio 27 % 08/10/18 06:07 Glucose 86 mg/dL (65-100) 08/10/18 06:07 Lactic Acid 0.50 mmol/L (0.7-2.0) L 08/03/18 16:18 Calcium 8.4 mg/dL (8.4-10.2) 08/10/18 06:07 Total Bilirubin 0.20 mg/dL (0.1-1.2) 08/07/18 08:40 AST 202 units/L (5-40) H 08/07/18 08:40 ALT 69 units/L (7-56) H 08/07/18 08:40 Alkaline Phosphatase 71 units/L (35-129) 08/07/18 08:40 Total Creatine Kinase 605 units/L (30-135) H 08/02/18 Unknown CK-MB (CK-2) 285.3 ng/mL (0.0-4.0) H 08/02/18 Unknown CK-MB (CK-2) Rel Index 47.1 (0-4) H 08/02/18 Unknown Troponin T < 0.010 ng/mL (0.00-0.029) 08/02/18 Unknown C-Reactive Protein 22.10 mg/dL (0.00-1.30) H 08/08/18 00:13 Total Protein 6.2 g/dL (6.3-8.2) L 08/07/18 08:40 Albumin 2.6 g/dL (3.9-5) L 08/07/18 08:40 Albumin/Globulin Ratio 0.7 % 08/07/18 08:40 HCG, Qual Negative (Negative) 08/02/18 Unknown Urine Color Lori (Yellow) 08/02/18 10:24 Urine Turbidity Cloudy (Clear) 08/02/18 10:24 Urine pH 6.0 (5.0-7.0) 08/02/18 10:24 Ur Specific [place] 1.020 (1.003-1.030) 08/02/18 10:24 Urine Protein 100 mg/dl mg/dL (Negative) 08/02/18 10:24 Urine Glucose (UA) Neg mg/dL (Negative) 08/02/18 10:24 Urine Ketones Neg mg/dL (Negative) 08/02/18 10:24 Urine Blood Lg (Negative) 08/02/18 10:24 Urine Nitrite Neg (Negative) 08/02/18 10:24 Urine Bilirubin Neg (Negative) 08/02/18 10:24 Urine Urobilinogen 2.0 mg/dL (<2.0) 08/02/18 10:24 Ur Leukocyte Esterase Neg (Negative) 08/02/18 10:24 Urine WBC (Auto) 7.0 /HPF (0.0-6.0) H 08/02/18 10:24 Urine RBC (Auto) 3.0 /HPF (0.0-6.0) 08/02/18 10:24 U Epithel Cells (Auto) 4.0 /HPF (0-13.0) 08/02/18 10:24 Urine Mucus 2+ /HPF 08/02/18 10:24 Urine HCG, Qual Negative (Negative) 08/02/18 10:24 Vancomycin Trough 18.2 ug/mL (5.0-20.0) 08/06/18 10:42 Urine Opiates Screen Presumptive negative 08/02/18 10:33 Urine Methadone Screen Presumptive negative 08/02/18 10:33 Ur Barbiturates Screen Presumptive negative 08/02/18 10:33 Ur Phencyclidine Scrn Presumptive negative 08/02/18 10:33 Ur Amphetamines Screen Presumptive negative 08/02/18 10:33 U Benzodiazepines Scrn Presumptive positive 08/02/18 10:33 Urine Cocaine Screen Presumptive negative 08/02/18 10:33 U Marijuana (THC) Screen Presumptive negative 08/02/18 10:33 Drugs of Abuse Note Disclamer 08/02/18 10:33 DEXTER Screen Negative (Negative) 08/04/18 10:00 Complement C3 154 mg/dL (83-193) 08/04/18 10:00 Complement C4 31 mg/dL (15-57) 08/04/18 10:03 Nutrition/Malnutrition Assess - Dietary Evaluation Nutrition/Malnutrition Findings: Nutrition Notes Start: 08/09/18 14:05 Freq: Status: Active Protocol: Document 08/09/18 14:05 JOSEPH (Rec: 08/09/18 14:25 JOSEPH [email or web address]) Co-Sign 08/09/18 14:05 LP Nutrition Notes Need for Assessment generated from: LOS Initial or Follow up Assessment Other Pertinent Diagnosis Fibromyalgia, multiple wounds, sepsis secondary to cellulitis Current Diet Regular diet with consistent CHO Labs/Tests Na: 135 K: 3.5 Pertinent Medications Reveiwed Height 5 ft 7 in Weight 103.6 kg [place] Body Weight (kg) 61.36 BMI 35.7 Weight Status Morbidly Obese Subjective/Other Information Pt screened for LOS. Pt. unable to answer questions due to being asleep. RN stated that pt. is very weak and sleepy but usually eats all of her meals. RN stated that she does not think pt needs an ONS. Percent of energy/protein needs met: 84%/62% Burn Absent Trauma Absent #1 Nutrition Diagnosis Increased nutrient needs ( specify in comment below) Comments: Protein Etiology Wound healing As Evidenced by Signs and Symptoms Presence of multiple LE wounds Is patient on ventilator? No Is Patient Ambulatory and/or Out of Bed No REE-([facility]-confined to bed) 2071.236 Kcal/Kg value to use for calculation 15 Approximate Energy Requirements Using 1554 kcal/Kg Calculation Used for Recommendations Kcal/kg Additional Notes AdjBW = 82.48 kg Pro needs = 103-124g/day (1.25 -1.5 g/kg AdjBW) Fluid = 1 ml/kcal Nutrition Intervention Change Diet Order: Regular diet Add Supplement/Snack (indicate name/kcal Jonathon BID + Ensure high /protein ) protein daily Provides kCal: 350 Provides Protein (gm) 21 Goal #1 Meet at least 75% of energy and protein needs via PO and ONS intakes Goal #2 Wound healing Anticipated Discharge Needs: Regular diet Follow-Up By: 08/11/18 Additional Comments F/u for PO and ONS intakes, ONS tolerance
[2018-08-10 16:20] LABS: Myeloperoxidase Antibody <1.0 AI (<1.0)
[2018-08-10] MEDS: SINEquan PO SCH ×2 (23:00→23:02)
[2018-08-11] MEDS: HEPARIN SUB-Q SCH ×3 (05:26→22:01)
[2018-08-11] MEDS: PERCOCET 5/325 PO PRN ×3 (05:27→19:26)
[2018-08-11] MEDS: FLAGYL PO SCH ×4 (05:28→21:56)
[2018-08-11] MEDS: XANAX PO SCH ×3 (09:11→21:01)
[2018-08-11] MEDS: BUSPAR PO SCH (09:11)
[2018-08-11] MEDS: LYRICA PO SCH ×3 (09:12→22:05)
[2018-08-11] MEDS: CEFTIN PO SCH ×2 (09:13→21:03)
[2018-08-11] MEDS: VIBRAMYCIN PO SCH ×2 (12:22→21:56)
[2018-08-11] MEDS: LaMICtal PO SCH ×2 (12:22→21:59)
[2018-08-11] MEDS: PEPCID PO SCH ×2 (12:22→21:59)
[2018-08-11] MEDS: TOPAMAX PO SCH ×2 (12:23→21:59)
[2018-08-11] MEDS: GEODON PO SCH ×2 (12:23→21:57)
--- NOTE | 2018-08-11 12:36 | Consultation ---
History of Present Illness - Reason for Consult Consult date: 08/11/18 Reason for consult: Mental Health Evaluation Requesting physician: ELLY CONLEY - Chief Complaint Chief complaint: "I an alright" - History of Present Psychiatric Illness 42-year-old AA female with episodes of marginal complaints of generalized weakness times one week that is worsening and bilateral leg pain and edema. Psychiatry was consulted to see the patient for encephalopathy. Today the patient is calm and cooperative during the assessment. She stated that she fell while getting out of a truck and injured her left leg. She stated that the injury got worse, so she came to the ER. She stated that she recently moved from [place] and do not have an psychiatrist. She stated that she has a hx of Bipolar DO/Anxiety/Depression and take several medications. She stated, "Can you modify some of my medications." Per the patient, she has taken Xanax and Lamictal for several years (2011). She denies SI/HI's, AVH's, and depression. She denies any recent manic episodes. She denies a poor appetite, but acknowledged that her sleep can be erratic. She denies recreational drug use and alcohol consumption (etoh). Medications and Allergies Allergies Allergy/AdvReac Type Severity Reaction Status Date / Time morphine Allergy Rash Verified 08/02/18 06:49 Home Medications Medication Instructions Recorded Confirmed Last Taken Type Clindamycin [Clindamycin CAP] 300 mg PO Q8H #21 cap 08/02/18 Unknown Rx Acyclovir 1 tab PO BID 08/03/18 08/03/18 Unknown History Buspirone HCl 15 mg PO TID 08/03/18 08/03/18 08/01/18 History Doxepin 50 mg PO HS 08/03/18 08/03/18 08/01/18 History Doxepin 100 mg PO HS 08/03/18 08/03/18 07/31/18 History Fluticasone 1 puff AU DAILY PRN 08/03/18 08/03/18 08/01/18 History Haloperidol 5 mg PO HS PRN 08/03/18 08/03/18 Unknown History LaMICtal 100 tab PO BID 08/03/18 08/03/18 08/01/18 History Lyrica 150 mg PO TID 08/03/18 08/03/18 08/01/18 History Topiramate 200 mg PO BID 08/03/18 08/03/18 08/01/18 History Xanax 1 mg PO TID 08/03/18 08/03/18 Unknown History Ziprasidone 80 mg PO BID 08/03/18 08/03/18 Unknown History traZODone 150 mg PO DAILY 08/03/18 08/03/18 08/01/18 History Active Meds: Active Medications Acetaminophen (Tylenol) 650 mg PO Q4H PRN PRN Reason: Pain MILD(1-3)/Fever >100.5/GRAY Last Admin: 08/04/18 06:10 Dose: 650 mg Documented by: Albuterol (Proventil) 2.5 mg IH Q4HRT PRN PRN Reason: Shortness Of Breath Alprazolam (Xanax) 1 mg PO TID [facility] Last Admin: 08/11/18 09:11 Dose: 1 mg Documented by: Cefuroxime Axetil (Ceftin) 500 mg PO Q12H [facility] Last Admin: 08/11/18 09:13 Dose: 500 mg Documented by: Diphenhydramine HCl (Benadryl) 25 mg PO QHS PRN PRN Reason: Sleep Doxepin HCl (Sinequan) 50 mg PO HS [facility] Last Admin: 08/10/18 23:02 Dose: 50 mg Documented by: Doxepin HCl (Sinequan) 100 mg PO QHS [facility] Last Admin: 08/10/18 23:00 Dose: 100 mg Documented by: Doxycycline Hyclate (Vibramycin) 100 mg PO BID [facility] Last Admin: 08/11/18 12:22 Dose: 100 mg Documented by: Famotidine (Pepcid) 20 mg PO BID [facility] Last Admin: 08/11/18 12:22 Dose: 20 mg Documented by: Fluticasone Propionate (Flonase) 50 mcg NS QDAY PRN PRN Reason: CONGESTION Last Admin: 08/10/18 09:44 Dose: 50 mcg Documented by: Haloperidol (Haldol) 5 mg PO HS PRN PRN Reason: Agitation Heparin Sodium (Porcine) (Heparin) 5,000 unit SUB-Q Q8HR [facility] Last Admin: 08/11/18 05:26 Dose: 5,000 unit Documented by: Hydromorphone HCl (Dilaudid) 0.5 mg IV Q3H PRN PRN Reason: Pain , Severe (7-10) Last Admin: 08/03/18 22:15 Dose: 0.5 mg Documented by: Sodium Chloride (Nacl 0.45% 1000 Ml) 1,000 mls @ 75 mls/hr IV DIRECT [facility] Last Admin: 08/07/18 07:15 Dose: 75 mls/hr Documented by: Lamotrigine (Lamictal) 100 mg PO BID [facility] Last Admin: 08/11/18 12:22 Dose: 100 mg Documented by: Metronidazole (Flagyl) 500 mg PO Q8HR [facility]; Protocol Last Admin: 08/11/18 05:47 Dose: 500 mg Documented by: Ondansetron HCl (Zofran) 4 mg IV Q8H PRN PRN Reason: Nausea And Vomiting Oxycodone/Acetaminophen (Percocet 5/325) 2 tab PO Q6H PRN PRN Reason: Pain, Moderate (4-6) Last Admin: 08/11/18 10:56 Dose: 2 tab Documented by: Pregabalin (Lyrica) 150 mg PO TID [facility] Last Admin: 08/11/18 09:12 Dose: 150 mg Documented by: Sodium Chloride (Sodium Chloride Flush Syringe 10 Ml) 10 ml IV BID [facility] Last Admin: 08/10/18 23:02 Dose: 10 ml Documented by: Sodium Chloride (Sodium Chloride Flush Syringe 10 Ml) 10 ml IV PRN PRN PRN Reason: LINE FLUSH Topiramate (Topamax) 200 mg PO BID [facility] Last Admin: 08/11/18 12:23 Dose: 200 mg Documented by: Ziprasidone (Geodon) 80 mg PO BID [facility] Last Admin: 08/11/18 12:23 Dose: 80 mg Documented by: Past psychiatric history - Past Medical History Past Medical History: other (Asthma, Fibromyalgia) Past Surgical History: No surgical history - past Psychiatric treatment and history psychiatric treatment history: Hx of Bipolar DO. Denies a fam psy hx. - Social History Social history: lives with family Mental Status Exam - Vital signs Last Vital Signs Temp 97.9 F 08/11/18 12:00 Pulse 77 08/11/18 04:34 Resp 16 08/11/18 12:00 BP 89/58 08/11/18 12:00 Pulse Ox 97 08/11/18 04:34 - Exam Narrative exam: MSE: Appearance: calm, cooperative Behavior: regular eye contact Speech: regular rate and loud tone Mood: "okay" Affect: congruent to mood Thought Process: linear Thought Content: denies SI/HI's and AVH's Motor Activity: sitting up in the bed Cognition: A/O x3 Insight: appropriate Judgment: appropriate Results Result Diagrams: 08/10/18 06:07 08/10/18 06:07 All other labs normal. Assessment and Plan Assessment and plan: Impression: Hx of Bipolar DO/Unspecified Anxiety DO. Today the patient is calm and cooperative during the assessment. LF's are elevated, but trending down. Recommendation/Plan: Continue home medications Lamictal 100 mg PO BID for mood, Doxepin 150 mg PO HS for depression/anxiety/sleep, Geodon 80 mg PO BID for mood, Xanax 1 mg PO TID for anxiety, and start Benadryl 25 mg PO HS PRN for sleep. Discussed possible SJS with the patient reference Lamictal. Discussed possible metabolic side effects of Geodon with the patient. Will follow up with the patient in 24 hours. Dispo: The patient will be given a referral for [facility] for outpatient psy services prior to her discharge. Staffed with Dr Teresa.
[2018-08-11] MEDS: SODIUM CHLORIDE FLUSH SYRINGE 10 ML IV SCH ×2 (16:15→22:00)
[2018-08-11] MEDS: SINEquan PO SCH ×2 (21:58)
[2018-08-11] MEDS ORDERED: BENADRYL PO PRN (22:00)
[2018-08-12] MEDS: PERCOCET 5/325 PO PRN ×3 (03:20→19:00)
[2018-08-12] MEDS: HEPARIN SUB-Q SCH ×4 (05:56→23:22)
[2018-08-12] MEDS: FLAGYL PO SCH ×3 (05:58→22:57)
[2018-08-12] MEDS: NACL 0.45% 1000 ML 1,000 ML IV SCH ×2 (07:17→14:39)
[2018-08-12] MEDS: LaMICtal PO SCH ×2 (11:11→22:59)
[2018-08-12] MEDS: TOPAMAX PO SCH ×2 (11:12→22:59)
[2018-08-12] MEDS: VIBRAMYCIN PO SCH ×2 (11:12→22:57)
[2018-08-12] MEDS: PEPCID PO SCH ×2 (11:12→22:59)
[2018-08-12] MEDS: CEFTIN PO SCH ×2 (11:12→23:10)
[2018-08-12] MEDS: GEODON PO SCH ×2 (11:13→22:58)
[2018-08-12] MEDS: XANAX PO SCH ×3 (11:21→23:10)
[2018-08-12] MEDS: LYRICA PO SCH ×4 (11:21→22:57)
[2018-08-12] MEDS: SODIUM CHLORIDE FLUSH SYRINGE 10 ML IV SCH ×2 (11:21→22:59)
--- NOTE | 2018-08-12 11:57 | Progress Note ---
Assessment and Plan Assessment and plan: Sepsis secondary to cellulitis Dog bite associated left lower extremity cellulitis No evidence of necrotizing fasciitis. Surgical biopsy of left leg with no growth to date. Toxic metabolic encephalopathy. Resolved. Continue to treat underlying causes. Depression, bipolar disorder, schizophrenia - Continue home medications Lamictal 100 mg PO BID for mood, Doxepin 150 mg PO HS for depression/anxiety/sleep, Geodon 80 mg PO BID for mood, Xanax 1 mg PO TID for anxiety, and start Benadryl 25 mg PO HS PRN for sleep. Psychiatry discussed possible SJS with the patient reference Lamictal. Fibromyalgia: - Pain control - Continue home medications DVT prophylaxis - On heparin Disposition - continue inpatient care. Await PT recommendations for discharge. Patient will be transferred to [facility] floor. History Interval history: No new issues overnight Hospitalist Physical - Constitutional Vitals: Temp Pulse Resp BP Pulse Ox 97.3 F L 80 24 106/64 98 08/12/18 11:24 08/12/18 11:24 08/12/18 04:35 08/12/18 11:08 08/12/18 07:15 General appearance: Present: no acute distress - EENT Eyes: Present: PERRL, EOM intact ENT: hearing intact, clear oral mucosa, dentition normal - Neck Neck: Present: supple, normal ROM - Respiratory Respiratory effort: normal Respiratory: bilateral: CTA - Cardiovascular Rhythm: regular Heart Sounds: Present: S1 & S2. Absent: gallop, rub - Extremities Extremities: no ischemia, No edema, Full ROM - Abdominal General gastrointestinal: soft, non-tender, non-distended, normal bowel sounds - Integumentary Integumentary: Present: clear, warm, dry - Neurologic Neurologic: CNII-XII intact, moves all extremities Results - Labs CBC & Chem 7: 08/10/18 06:07 08/10/18 06:07 Labs: Laboratory Last Values WBC 8.6 K/mm3 (4.5-11.0) 08/10/18 06:07 RBC 3.79 M/mm3 (3.65-5.03) 08/10/18 06:07 Hgb 11.8 gm/dl (10.1-14.3) 08/10/18 06:07 Hct 35.2 % (30.3-42.9) 08/10/18 06:07 MCV 93 fl (79-97) 08/10/18 06:07 MCH 31 pg (28-32) 08/10/18 06:07 MCHC 34 % (30-34) 08/10/18 06:07 RDW 15.0 % (13.2-15.2) 08/10/18 06:07 Plt Count 411 K/mm3 (140-440) 08/10/18 06:07 Lymph % (Auto) 15.6 % (13.4-35.0) 08/09/18 00:55 [place] % (Auto) 11.0 % (0.0-7.3) H 08/09/18 00:55 Eos % (Auto) 2.3 % (0.0-4.3) 08/09/18 00:55 Baso % (Auto) 0.8 % (0.0-1.8) 08/09/18 00:55 Lymph # 1.6 K/mm3 (1.2-5.4) 08/09/18 00:55 [place] # 1.1 K/mm3 (0.0-0.8) H 08/09/18 00:55 Eos # 0.2 K/mm3 (0.0-0.4) 08/09/18 00:55 Baso # 0.1 K/mm3 (0.0-0.1) 08/09/18 00:55 Add Manual Diff Complete 08/10/18 06:07 Total Counted 100 08/10/18 06:07 Seg Neutrophils % 70.3 % (40.0-70.0) H 08/09/18 00:55 Seg Neuts % (Manual) 65.0 % (40.0-70.0) 08/10/18 06:07 Band Neutrophils % 0 % 08/10/18 06:07 Lymphocytes % (Manual) 16.0 % (13.4-35.0) 08/10/18 06:07 Reactive Lymphs % (Man) 0 % 08/10/18 06:07 Monocytes % (Manual) 13.0 % (0.0-7.3) H 08/10/18 06:07 Eosinophils % (Manual) 3.0 % (0.0-4.3) 08/10/18 06:07 Basophils % (Manual) 0 % (0.0-1.8) 08/10/18 06:07 Metamyelocytes % 0 % 08/10/18 06:07 Myelocytes % 3.0 % 08/10/18 06:07 Promyelocytes % 0 % 08/10/18 06:07 Blast Cells % 0 % 08/10/18 06:07 Nucleated RBC % Not Reportable 08/10/18 06:07 Seg Neutrophils # 7.0 K/mm3 (1.8-7.7) 08/09/18 00:55 Seg Neutrophils # Man 5.6 K/mm3 (1.8-7.7) 08/10/18 06:07 Band Neutrophils # 0.0 K/mm3 08/10/18 06:07 Lymphocytes # (Manual) 1.4 K/mm3 (1.2-5.4) 08/10/18 06:07 Abs React Lymphs (Man) 0.0 K/mm3 08/10/18 06:07 Monocytes # (Manual) 1.1 K/mm3 (0.0-0.8) H 08/10/18 06:07 Eosinophils # (Manual) 0.3 K/mm3 (0.0-0.4) 08/10/18 06:07 Basophils # (Manual) 0.0 K/mm3 (0.0-0.1) 08/10/18 06:07 Metamyelocytes # 0.0 K/mm3 08/10/18 06:07 Myelocytes # 0.3 K/mm3 08/10/18 06:07 Promyelocytes # 0.0 K/mm3 08/10/18 06:07 Blast Cells # 0.0 K/mm3 08/10/18 06:07 WBC Morphology Not Reportable 08/10/18 06:07 Hypersegmented Neuts Not Reportable 08/10/18 06:07 Hyposegmented Neuts Not Reportable 08/10/18 06:07 Hypogranular Neuts Not Reportable 08/10/18 06:07 Smudge Cells Not Reportable 08/10/18 06:07 Toxic Granulation Not Reportable 08/10/18 06:07 Toxic Vacuolation Not Reportable 08/10/18 06:07 Dohle Bodies Not Reportable 08/10/18 06:07 Pelger-Huet Anomaly Not Reportable 08/10/18 06:07 Tila Rods Not Reportable 08/10/18 06:07 Platelet Estimate Consistent w auto 08/10/18 06:07 Clumped Platelets Not Reportable 08/10/18 06:07 Plt Clumps, EDTA Not Reportable 08/10/18 06:07 Large Platelets Not Reportable 08/10/18 06:07 Giant Platelets Not Reportable 08/10/18 06:07 Platelet Satelliting Not Reportable 08/10/18 06:07 Plt Morphology Comment Not Reportable 08/10/18 06:07 RBC Morphology Not Reportable 08/10/18 06:07 Dimorphic RBCs Not Reportable 08/10/18 06:07 Polychromasia Not Reportable 08/10/18 06:07 Hypochromasia Not Reportable 08/10/18 06:07 Poikilocytosis Not Reportable 08/10/18 06:07 Anisocytosis Few 08/10/18 06:07 Microcytosis Not Reportable 08/10/18 06:07 Macrocytosis Rare 08/10/18 06:07 Spherocytes Not Reportable 08/10/18 06:07 Pappenheimer Bodies Not Reportable 08/10/18 06:07 Sickle Cells Not Reportable 08/10/18 06:07 Target Cells Not Reportable 08/10/18 06:07 Tear Drop Cells Not Reportable 08/10/18 06:07 Ovalocytes Not Reportable 08/10/18 06:07 Helmet Cells Not Reportable 08/10/18 06:07 [place] Bodies Not Reportable 08/10/18 06:07 [place] Rings Not Reportable 08/10/18 06:07 [place] Cells Not Reportable 08/10/18 06:07 Bite Cells Not Reportable 08/10/18 06:07 Crenated Cell Not Reportable 08/10/18 06:07 Elliptocytes Not Reportable 08/10/18 06:07 Acanthocytes (Spur) Not Reportable 08/10/18 06:07 Rouleaux Not Reportable 08/10/18 06:07 Hemoglobin C Crystals Not Reportable 08/10/18 06:07 Schistocytes Not Reportable 08/10/18 06:07 Malaria parasites Not Reportable 08/10/18 06:07 ESR 4 mm/Hr (0-20) 08/02/18 Unknown Tunde Bodies Not Reportable 08/10/18 06:07 Hem Pathologist Commnt No 08/10/18 06:07 Sodium 139 mmol/L (137-145) 08/10/18 06:07 Potassium 3.6 mmol/L (3.6-5.0) 08/10/18 06:07 Chloride 103.7 mmol/L (98-107) 08/10/18 06:07 Carbon Dioxide 23 mmol/L (22-30) 08/10/18 06:07 Anion Gap 16 mmol/L 08/10/18 06:07 BUN 24 mg/dL (7-17) H 08/10/18 06:07 Creatinine 0.9 mg/dL (0.7-1.2) 08/10/18 06:07 Estimated GFR > 60 ml/min 08/10/18 06:07 BUN/Creatinine Ratio 27 % 08/10/18 06:07 Glucose 86 mg/dL (65-100) 08/10/18 06:07 Lactic Acid 0.50 mmol/L (0.7-2.0) L 08/03/18 16:18 Calcium 8.4 mg/dL (8.4-10.2) 08/10/18 06:07 Total Bilirubin 0.20 mg/dL (0.1-1.2) 08/07/18 08:40 AST 202 units/L (5-40) H 08/07/18 08:40 ALT 69 units/L (7-56) H 08/07/18 08:40 Alkaline Phosphatase 71 units/L (35-129) 08/07/18 08:40 Total Creatine Kinase 605 units/L (30-135) H 08/02/18 Unknown CK-MB (CK-2) 285.3 ng/mL (0.0-4.0) H 08/02/18 Unknown CK-MB (CK-2) Rel Index 47.1 (0-4) H 08/02/18 Unknown Troponin T < 0.010 ng/mL (0.00-0.029) 08/02/18 Unknown C-Reactive Protein 22.10 mg/dL (0.00-1.30) H 08/08/18 00:13 Total Protein 6.2 g/dL (6.3-8.2) L 08/07/18 08:40 Albumin 2.6 g/dL (3.9-5) L 08/07/18 08:40 Albumin/Globulin Ratio 0.7 % 08/07/18 08:40 HCG, Qual Negative (Negative) 08/02/18 Unknown Urine Color Lori (Yellow) 08/02/18 10:24 Urine Turbidity Cloudy (Clear) 08/02/18 10:24 Urine pH 6.0 (5.0-7.0) 08/02/18 10:24 Ur Specific [place] 1.020 (1.003-1.030) 08/02/18 10:24 Urine Protein 100 mg/dl mg/dL (Negative) 08/02/18 10:24 Urine Glucose (UA) Neg mg/dL (Negative) 08/02/18 10:24 Urine Ketones Neg mg/dL (Negative) 08/02/18 10:24 Urine Blood Lg (Negative) 08/02/18 10:24 Urine Nitrite Neg (Negative) 08/02/18 10:24 Urine Bilirubin Neg (Negative) 08/02/18 10:24 Urine Urobilinogen 2.0 mg/dL (<2.0) 08/02/18 10:24 Ur Leukocyte Esterase Neg (Negative) 08/02/18 10:24 Urine WBC (Auto) 7.0 /HPF (0.0-6.0) H 08/02/18 10:24 Urine RBC (Auto) 3.0 /HPF (0.0-6.0) 08/02/18 10:24 U Epithel Cells (Auto) 4.0 /HPF (0-13.0) 08/02/18 10:24 Urine Mucus 2+ /HPF 08/02/18 10:24 Urine HCG, Qual Negative (Negative) 08/02/18 10:24 Vancomycin Trough 18.2 ug/mL (5.0-20.0) 08/06/18 10:42 Urine Opiates Screen Presumptive negative 08/02/18 10:33 Urine Methadone Screen Presumptive negative 08/02/18 10:33 Ur Barbiturates Screen Presumptive negative 08/02/18 10:33 Ur Phencyclidine Scrn Presumptive negative 08/02/18 10:33 Ur Amphetamines Screen Presumptive negative 08/02/18 10:33 U Benzodiazepines Scrn Presumptive positive 08/02/18 10:33 Urine Cocaine Screen Presumptive negative 08/02/18 10:33 U Marijuana (THC) Screen Presumptive negative 08/02/18 10:33 Drugs of Abuse Note Disclamer 08/02/18 10:33 DEXTER Screen Negative (Negative) 08/04/18 10:00 Proteinase 3 (PR3) Ab <1.0 AI (<1.0) 08/04/18 10:00 Myeloperoxidase Ab <1.0 AI (<1.0) 08/04/18 10:00 Complement C3 154 mg/dL (83-193) 08/04/18 10:00 Complement C4 31 mg/dL (15-57) 08/04/18 10:03 Nutrition/Malnutrition Assess - Dietary Evaluation Nutrition/Malnutrition Findings: Nutrition Notes Start: 08/09/18 14:05 Freq: Status: Active Protocol: Document 08/11/18 12:24 (Rec: 08/11/18 13:02 [email or web address]) Co-Sign 08/11/18 12:24 LP Nutrition Notes Initial or Follow up Reassessment Other Pertinent Diagnosis Fibromyalgia, multiple wounds, sepsis secondary to cellulitis Current Diet Regular diet with consistent CHO + Ensure High Protein and [place] Labs/Tests Reviewed Pertinent Medications Reviewed Height 5 ft 7 in Weight 105.5 kg [place] Body Weight (kg) 61.36 BMI 36.4 Weight Status Morbidly Obese Subjective/Other Information F/u for PO and ONS intakes, ONS tolerance. Pt stated her appetite has been lower than normal, but she was able to eat all of her breakfast this AM except for the toast. Pt stated she did not like Jon[place] but likes the Ensure high protein. Encouraged pt to continue to try to drink all of Ensure high protein daily. Percent of energy/protein needs met: 100%/79% Burn Absent Trauma Absent #1 Nutrition Diagnosis Increased nutrient needs ( specify in comment below) Comments: Protein Diagnosis Progress(for reassessment Continues documentation) Is patient on ventilator? No Is Patient Ambulatory and/or Out of Bed No REE-([place]-confined to bed) 2094.012 Kcal/Kg value to use for calculation 15 Approximate Energy Requirements Using 1583 kcal/Kg Calculation Used for Recommendations Kcal/kg Additional Notes AdjBW = 82.48 kg Pro needs = 103-124g/day (1.25 -1.5 g/kg AdjBW) Fluid = 1 ml/kcal Nutrition Intervention Change Diet Order: Continue regular diet Add Supplement/Snack (indicate name/kcal Ensure High Protein daily /protein ) D/C [place]athon Provides kCal: 160 Provides Protein (gm) 16 Goal #1 Continue to meet at least 75% of energy and protein needs via PO and ONS intakes Goal #2 Wound healing Anticipated Discharge Needs: Regular diet Follow-Up By: 08/18/18 Additional Comments F/u for stable intakes
--- NOTE | 2018-08-12 21:59 | Progress Note ---
Subjective - Reason for Consult Consult date: 08/12/18 Reason for consult: psychiatric follow up - Chief Complaint Chief complaint: "I'm fine." 42-year-old AA female with episodes of marginal complaints of generalized weakness times one week that is worsening and bilateral leg pain and edema. Psychiatry was consulted to see the patient for encephalopathy. Today the patient is calm and cooperative during the assessment. She has a history of Bipolar DO/Anxiety/Depression and takes several medications. Per the patient, she has taken Xanax and Lamictal for several years (2011). She denies SI/HI. She reports chronic AH, non command. She did not want to discuss anything further.. - Exam Narrative exam: MSE: Appearance: calm, cooperative Behavior: regular eye contact Speech: regular rate Mood: "okay" Affect: congruent to mood Thought Process: linear Thought Content: denies SI/HI. she reports chronic auditory hallucinations. denies command hallucinations Motor Activity: sitting up in the bed Cognition: A/O x3 Insight: appropriate Judgment: appropriate Assessment and plan: Impression: Hx of Bipolar DO/Unspecified Anxiety DO. Today the patient is calm and cooperative during the assessment. LF's are elevated, but trending down. Recommendation/Plan: Continue home medications Lamictal 100 mg PO BID for mood, Doxepin 150 mg PO HS for depression/anxiety/sleep, Geodon 80 mg PO BID for mood, Xanax 1 mg PO TID for anxiety, and Benadryl 25 mg PO HS PRN for sleep. TALIA Gupta discussed possible SJS with the patient reference Lamictal. Discussed possible metabolic side effects of Geodon with the patient. Dispo: The patient will be given a referral for [facility] for outpatient psy services prior to her discharge. Staffed with Dr Cain. Mental Status Exam - Vital signs Last Vital Signs Temp 98.0 F 08/12/18 17:18 Pulse 78 08/12/18 17:18 Resp 15 08/12/18 17:18 BP 95/56 08/12/18 17:23 Pulse Ox 97 08/12/18 17:18
[2018-08-12] MEDS: DILAUDID IV PRN (22:55)
[2018-08-12] MEDS: SINEquan PO SCH ×2 (22:57→23:12)
[2018-08-13] MEDS: NACL 0.45% 1000 ML 1,000 ML IV SCH ×2 (06:16→23:44)
[2018-08-13] MEDS: FLAGYL PO SCH ×3 (06:17→22:06)
[2018-08-13] MEDS: HEPARIN SUB-Q SCH ×3 (06:17→22:07)
[2018-08-13] MEDS: LYRICA PO SCH ×3 (10:23→20:34)
[2018-08-13] MEDS: LaMICtal PO SCH ×2 (10:23→22:06)
[2018-08-13] MEDS: XANAX PO SCH ×3 (10:23→20:34)
[2018-08-13] MEDS: CEFTIN PO SCH ×2 (10:24→22:05)
[2018-08-13] MEDS: VIBRAMYCIN PO SCH ×2 (10:24→22:06)
[2018-08-13] MEDS: TOPAMAX PO SCH ×2 (10:24→22:07)
[2018-08-13] MEDS: PEPCID PO SCH ×2 (10:25→22:06)
[2018-08-13] MEDS: GEODON PO SCH ×2 (10:25→22:05)
[2018-08-13] MEDS: SODIUM CHLORIDE FLUSH SYRINGE 10 ML IV SCH ×2 (10:29→22:08)
[2018-08-13] MEDS: PERCOCET 5/325 PO PRN ×2 (11:30→18:44)
[2018-08-13] MEDS: SINEquan PO SCH ×2 (22:04→23:00)
[2018-08-14] MEDS: HEPARIN SUB-Q SCH ×3 (05:05→23:33)
[2018-08-14] MEDS: FLAGYL PO SCH ×3 (05:05→23:30)
[2018-08-14] MEDS: PERCOCET 5/325 PO PRN ×3 (05:06→18:33)
--- NOTE | 2018-08-14 09:54 | Progress Note ---
Assessment and Plan Assessment and plan: Sepsis secondary to cellulitis Dog bite associated left lower extremity cellulitis No evidence of necrotizing fasciitis. Surgical biopsy of left leg with no growth to date. Toxic metabolic encephalopathy. Resolved. Continue to treat underlying causes. Depression, bipolar disorder, schizophrenia - Continue home medications Lamictal 100 mg PO BID for mood, Doxepin 150 mg PO HS for depression/anxiety/sleep, Geodon 80 mg PO BID for mood, Xanax 1 mg PO TID for anxiety, and start Benadryl 25 mg PO HS PRN for sleep. Psychiatry discussed possible SJS with the patient reference Lamictal. Fibromyalgia: - Pain control - Continue home medications DVT prophylaxis - On heparin Disposition - continue inpatient care. PT recommends subacute rehabilitation. Await placement. History Interval history: No new issues overnight Hospitalist Physical - Constitutional Vitals: Temp Pulse Resp BP Pulse Ox 97.3 F L 77 16 106/67 98 08/14/18 05:16 08/14/18 05:16 08/14/18 05:16 08/14/18 05:16 08/14/18 05:16 General appearance: Present: no acute distress - EENT Eyes: Present: PERRL, EOM intact ENT: hearing intact, clear oral mucosa, dentition normal - Neck Neck: Present: supple, normal ROM - Respiratory Respiratory effort: normal Respiratory: bilateral: CTA - Cardiovascular Rhythm: regular Heart Sounds: Present: S1 & S2. Absent: gallop, rub - Extremities Extremities: no ischemia, No edema, Full ROM - Abdominal General gastrointestinal: soft, non-tender, non-distended, normal bowel sounds - Integumentary Integumentary: Present: clear, warm, dry - Neurologic Neurologic: CNII-XII intact, moves all extremities Results - Labs CBC & Chem 7: 08/10/18 06:07 08/10/18 06:07 Labs: Laboratory Last Values WBC 8.6 K/mm3 (4.5-11.0) 08/10/18 06:07 RBC 3.79 M/mm3 (3.65-5.03) 08/10/18 06:07 Hgb 11.8 gm/dl (10.1-14.3) 08/10/18 06:07 Hct 35.2 % (30.3-42.9) 08/10/18 06:07 MCV 93 fl (79-97) 08/10/18 06:07 MCH 31 pg (28-32) 08/10/18 06:07 MCHC 34 % (30-34) 08/10/18 06:07 RDW 15.0 % (13.2-15.2) 08/10/18 06:07 Plt Count 411 K/mm3 (140-440) 08/10/18 06:07 Lymph % (Auto) 15.6 % (13.4-35.0) 08/09/18 00:55 [place] % (Auto) 11.0 % (0.0-7.3) H 08/09/18 00:55 Eos % (Auto) 2.3 % (0.0-4.3) 08/09/18 00:55 Baso % (Auto) 0.8 % (0.0-1.8) 08/09/18 00:55 Lymph # 1.6 K/mm3 (1.2-5.4) 08/09/18 00:55 [place] # 1.1 K/mm3 (0.0-0.8) H 08/09/18 00:55 Eos # 0.2 K/mm3 (0.0-0.4) 08/09/18 00:55 Baso # 0.1 K/mm3 (0.0-0.1) 08/09/18 00:55 Add Manual Diff Complete 08/10/18 06:07 Total Counted 100 08/10/18 06:07 Seg Neutrophils % 70.3 % (40.0-70.0) H 08/09/18 00:55 Seg Neuts % (Manual) 65.0 % (40.0-70.0) 08/10/18 06:07 Band Neutrophils % 0 % 08/10/18 06:07 Lymphocytes % (Manual) 16.0 % (13.4-35.0) 08/10/18 06:07 Reactive Lymphs % (Man) 0 % 08/10/18 06:07 Monocytes % (Manual) 13.0 % (0.0-7.3) H 08/10/18 06:07 Eosinophils % (Manual) 3.0 % (0.0-4.3) 08/10/18 06:07 Basophils % (Manual) 0 % (0.0-1.8) 08/10/18 06:07 Metamyelocytes % 0 % 08/10/18 06:07 Myelocytes % 3.0 % 08/10/18 06:07 Promyelocytes % 0 % 08/10/18 06:07 Blast Cells % 0 % 08/10/18 06:07 Nucleated RBC % Not Reportable 08/10/18 06:07 Seg Neutrophils # 7.0 K/mm3 (1.8-7.7) 08/09/18 00:55 Seg Neutrophils # Man 5.6 K/mm3 (1.8-7.7) 08/10/18 06:07 Band Neutrophils # 0.0 K/mm3 08/10/18 06:07 Lymphocytes # (Manual) 1.4 K/mm3 (1.2-5.4) 08/10/18 06:07 Abs React Lymphs (Man) 0.0 K/mm3 08/10/18 06:07 Monocytes # (Manual) 1.1 K/mm3 (0.0-0.8) H 08/10/18 06:07 Eosinophils # (Manual) 0.3 K/mm3 (0.0-0.4) 08/10/18 06:07 Basophils # (Manual) 0.0 K/mm3 (0.0-0.1) 08/10/18 06:07 Metamyelocytes # 0.0 K/mm3 08/10/18 06:07 Myelocytes # 0.3 K/mm3 08/10/18 06:07 Promyelocytes # 0.0 K/mm3 08/10/18 06:07 Blast Cells # 0.0 K/mm3 08/10/18 06:07 WBC Morphology Not Reportable 08/10/18 06:07 Hypersegmented Neuts Not Reportable 08/10/18 06:07 Hyposegmented Neuts Not Reportable 08/10/18 06:07 Hypogranular Neuts Not Reportable 08/10/18 06:07 Smudge Cells Not Reportable 08/10/18 06:07 Toxic Granulation Not Reportable 08/10/18 06:07 Toxic Vacuolation Not Reportable 08/10/18 06:07 Dohle Bodies Not Reportable 08/10/18 06:07 Pelger-Huet Anomaly Not Reportable 08/10/18 06:07 Tila Rods Not Reportable 08/10/18 06:07 Platelet Estimate Consistent w auto 08/10/18 06:07 Clumped Platelets Not Reportable 08/10/18 06:07 Plt Clumps, EDTA Not Reportable 08/10/18 06:07 Large Platelets Not Reportable 08/10/18 06:07 Giant Platelets Not Reportable 08/10/18 06:07 Platelet Satelliting Not Reportable 08/10/18 06:07 Plt Morphology Comment Not Reportable 08/10/18 06:07 RBC Morphology Not Reportable 08/10/18 06:07 Dimorphic RBCs Not Reportable 08/10/18 06:07 Polychromasia Not Reportable 08/10/18 06:07 Hypochromasia Not Reportable 08/10/18 06:07 Poikilocytosis Not Reportable 08/10/18 06:07 Anisocytosis Few 08/10/18 06:07 Microcytosis Not Reportable 08/10/18 06:07 Macrocytosis Rare 08/10/18 06:07 Spherocytes Not Reportable 08/10/18 06:07 Pappenheimer Bodies Not Reportable 08/10/18 06:07 Sickle Cells Not Reportable 08/10/18 06:07 Target Cells Not Reportable 08/10/18 06:07 Tear Drop Cells Not Reportable 08/10/18 06:07 Ovalocytes Not Reportable 08/10/18 06:07 Helmet Cells Not Reportable 08/10/18 06:07 [place] Bodies Not Reportable 08/10/18 06:07 [place] Rings Not Reportable 08/10/18 06:07 [place] Cells Not Reportable 08/10/18 06:07 Bite Cells Not Reportable 08/10/18 06:07 Crenated Cell Not Reportable 08/10/18 06:07 Elliptocytes Not Reportable 08/10/18 06:07 Acanthocytes (Spur) Not Reportable 08/10/18 06:07 Rouleaux Not Reportable 08/10/18 06:07 Hemoglobin C Crystals Not Reportable 08/10/18 06:07 Schistocytes Not Reportable 08/10/18 06:07 Malaria parasites Not Reportable 08/10/18 06:07 ESR 4 mm/Hr (0-20) 08/02/18 Unknown [place] Bodies Not Reportable 08/10/18 06:07 Hem Pathologist Commnt No 08/10/18 06:07 Sodium 139 mmol/L (137-145) 08/10/18 06:07 Potassium 3.6 mmol/L (3.6-5.0) 08/10/18 06:07 Chloride 103.7 mmol/L (98-107) 08/10/18 06:07 Carbon Dioxide 23 mmol/L (22-30) 08/10/18 06:07 Anion Gap 16 mmol/L 08/10/18 06:07 BUN 24 mg/dL (7-17) H 08/10/18 06:07 Creatinine 0.9 mg/dL (0.7-1.2) 08/10/18 06:07 Estimated GFR > 60 ml/min 08/10/18 06:07 BUN/Creatinine Ratio 27 % 08/10/18 06:07 Glucose 86 mg/dL (65-100) 08/10/18 06:07 Lactic Acid 0.50 mmol/L (0.7-2.0) L 08/03/18 16:18 Calcium 8.4 mg/dL (8.4-10.2) 08/10/18 06:07 Total Bilirubin 0.20 mg/dL (0.1-1.2) 08/07/18 08:40 AST 202 units/L (5-40) H 08/07/18 08:40 ALT 69 units/L (7-56) H 08/07/18 08:40 Alkaline Phosphatase 71 units/L (35-129) 08/07/18 08:40 Total Creatine Kinase 605 units/L (30-135) H 08/02/18 Unknown CK-MB (CK-2) 285.3 ng/mL (0.0-4.0) H 08/02/18 Unknown CK-MB (CK-2) Rel Index 47.1 (0-4) H 08/02/18 Unknown Troponin T < 0.010 ng/mL (0.00-0.029) 08/02/18 Unknown C-Reactive Protein 22.10 mg/dL (0.00-1.30) H 08/08/18 00:13 Total Protein 6.2 g/dL (6.3-8.2) L 08/07/18 08:40 Albumin 2.6 g/dL (3.9-5) L 08/07/18 08:40 Albumin/Globulin Ratio 0.7 % 08/07/18 08:40 HCG, Qual Negative (Negative) 08/02/18 Unknown Urine Color [place] (Yellow) 08/02/18 10:24 Urine Turbidity Cloudy (Clear) 08/02/18 10:24 Urine pH 6.0 (5.0-7.0) 08/02/18 10:24 Ur Specific [place] 1.020 (1.003-1.030) 08/02/18 10:24 Urine Protein 100 mg/dl mg/dL (Negative) 08/02/18 10:24 Urine Glucose (UA) Neg mg/dL (Negative) 08/02/18 10:24 Urine Ketones Neg mg/dL (Negative) 08/02/18 10:24 Urine Blood Lg (Negative) 08/02/18 10:24 Urine Nitrite Neg (Negative) 08/02/18 10:24 Urine Bilirubin Neg (Negative) 08/02/18 10:24 Urine Urobilinogen 2.0 mg/dL (<2.0) 08/02/18 10:24 Ur Leukocyte Esterase Neg (Negative) 08/02/18 10:24 Urine WBC (Auto) 7.0 /HPF (0.0-6.0) H 08/02/18 10:24 Urine RBC (Auto) 3.0 /HPF (0.0-6.0) 08/02/18 10:24 U Epithel Cells (Auto) 4.0 /HPF (0-13.0) 08/02/18 10:24 Urine Mucus 2+ /HPF 08/02/18 10:24 Urine HCG, Qual Negative (Negative) 08/02/18 10:24 Vancomycin Trough 18.2 ug/mL (5.0-20.0) 08/06/18 10:42 Urine Opiates Screen Presumptive negative 08/02/18 10:33 Urine Methadone Screen Presumptive negative 08/02/18 10:33 Ur Barbiturates Screen Presumptive negative 08/02/18 10:33 Ur Phencyclidine Scrn Presumptive negative 08/02/18 10:33 Ur Amphetamines Screen Presumptive negative 08/02/18 10:33 U Benzodiazepines Scrn Presumptive positive 08/02/18 10:33 Urine Cocaine Screen Presumptive negative 08/02/18 10:33 U Marijuana (THC) Screen Presumptive negative 08/02/18 10:33 Drugs of Abuse Note Disclamer 08/02/18 10:33 DEXTER Screen Negative (Negative) 08/04/18 10:00 Proteinase 3 (PR3) Ab <1.0 AI (<1.0) 08/04/18 10:00 Myeloperoxidase Ab <1.0 AI (<1.0) 08/04/18 10:00 Complement C3 154 mg/dL (83-193) 08/04/18 10:00 Complement C4 31 mg/dL (15-57) 08/04/18 10:03 Nutrition/Malnutrition Assess - Dietary Evaluation Nutrition/Malnutrition Findings: Nutrition Notes Start: 08/09/18 14:05 Freq: Status: Active Protocol: Document 08/11/18 12:24 KH (Rec: 08/11/18 13:02 [email or web address]) Co-Sign 08/11/18 12:24 LP Nutrition Notes Initial or Follow up Reassessment Other Pertinent Diagnosis Fibromyalgia, multiple wounds, sepsis secondary to cellulitis Current Diet Regular diet with consistent CHO + Ensure High Protein and [place] Labs/Tests Reviewed Pertinent Medications Reviewed Height 5 ft 7 in Weight 105.5 kg [place] Body Weight (kg) 61.36 BMI 36.4 Weight Status Morbidly Obese Subjective/Other Information F/u for PO and ONS intakes, ONS tolerance. Pt stated her appetite has been lower than normal, but she was able to eat all of her breakfast this AM except for the toast. Pt stated she did not like Jonathon but likes the Ensure high protein. Encouraged pt to continue to try to drink all of Ensure high protein daily. Percent of energy/protein needs met: 100%/79% Burn Absent Trauma Absent #1 Nutrition Diagnosis Increased nutrient needs ( specify in comment below) Comments: Protein Diagnosis Progress(for reassessment Continues documentation) Is patient on ventilator? No Is Patient Ambulatory and/or Out of Bed No REE-([facility]-confined to bed) 1987.012 Kcal/Kg value to use for calculation 15 Approximate Energy Requirements Using 1583 kcal/Kg Calculation Used for Recommendations Kcal/kg Additional Notes AdjBW = 82.48 kg Pro needs = 103-124g/day (1.25 -1.5 g/kg AdjBW) Fluid = 1 ml/kcal Nutrition Intervention Change Diet Order: Continue regular diet Add Supplement/Snack (indicate name/kcal Ensure High Protein daily /protein ) D/C Jonathon Provides kCal: 160 Provides Protein (gm) 16 Goal #1 Continue to meet at least 75% of energy and protein needs via PO and ONS intakes Goal #2 Wound healing Anticipated Discharge Needs: Regular diet Follow-Up By: 08/18/18 Additional Comments F/u for stable intakes
[2018-08-14] MEDS: GEODON PO SCH ×2 (10:18→23:26)
[2018-08-14] MEDS: TOPAMAX PO SCH ×2 (10:18→23:40)
[2018-08-14] MEDS: LaMICtal PO SCH ×2 (10:18→23:25)
[2018-08-14] MEDS: VIBRAMYCIN PO SCH ×2 (10:18→23:28)
[2018-08-14] MEDS: PEPCID PO SCH ×2 (10:19→23:27)
[2018-08-14] MEDS: CEFTIN PO SCH ×2 (10:30→23:25)
[2018-08-14] MEDS: XANAX PO SCH ×3 (10:31→23:28)
[2018-08-14] MEDS: SODIUM CHLORIDE FLUSH SYRINGE 10 ML IV SCH ×2 (10:31→23:33)
[2018-08-14] MEDS: LYRICA PO SCH ×3 (10:31→23:27)
--- NOTE | 2018-08-14 11:02 | Progress Note ---
Subjective - Reason for Consult Consult date: 08/14/18 Reason for consult: Psychiatry Follow-up - Chief Complaint Chief complaint: "I'm okay" 42-year-old AA female with episodes of marginal complaints of generalized weakness times one week that is worsening and bilateral leg pain and edema. Psychiatry was consulted to see the patient for encephalopathy. Today the patient is calm and cooperative during the assessment. She stated that she is feeling okay "mentally." She stated that she would like a referral for outpatient psy services in the her local area. She denies SI/HI's and AVH's. She denies any side effects of her medications. Mental Status Exam - Vital signs Last Vital Signs Temp 97.3 F L 08/14/18 05:16 Pulse 84 08/14/18 10:19 Resp 16 08/14/18 05:16 BP 114/59 08/14/18 10:19 Pulse Ox 98 08/14/18 05:16 - Exam Narrative exam: MSE: Appearance: calm, cooperative Behavior: regular eye contact Speech: regular rate and loud tone Mood: "okay" Affect: congruent to mood Thought Process: linear Thought Content: denies SI/HI's and AVH's Motor Activity: sitting up in the bed Cognition: A/O x3 Insight: appropriate Judgment: appropriate Assessment and Plan mpression: Hx of Bipolar DO/Unspecified Anxiety DO. Today the patient is calm and cooperative during the assessment. Recommendation/Plan: Continue home medications Lamictal 100 mg PO BID for mood, Doxepin 150 mg PO HS for depression/anxiety/sleep, Geodon 80 mg PO BID for mood, Xanax 1 mg PO TID for anxiety, and start Benadryl 25 mg PO HS PRN for sleep. Discussed possible SJS with the patient reference Lamictal. Discussed possible metabolic side effects of Geodon with the patient. Psy sign off. Dispo: The patient can follow up with [facility] for outpatient psy services. Will staff with Dr Ronen Cain.
[2018-08-14] MEDS: NACL 0.45% 1000 ML 1,000 ML IV SCH (13:33)
[2018-08-14] MEDS: SINEquan PO SCH ×2 (23:30→23:31)
[2018-08-15] MEDS: HEPARIN SUB-Q SCH ×3 (05:53→22:47)
[2018-08-15] MEDS: PERCOCET 5/325 PO PRN ×3 (05:54→22:42)
[2018-08-15] MEDS: NACL 0.45% 1000 ML 1,000 ML IV SCH (05:57)
[2018-08-15] MEDS: FLAGYL PO SCH (06:04)
[2018-08-15 07:29] LABS: Basophils # (Auto) 0.1 K/mm3 (0.0-0.1); Basophils % (Auto) 0.8 % (0.0-1.8); Eosinophils # (Auto) 0.2 K/mm3 (0.0-0.4); Eosinophils % (Auto) 2.2 % (0.0-4.3); Hematocrit 32.9 % (30.3-42.9); Hemoglobin 11.2 gm/dl (10.1-14.3); Lymphocytes # (Auto) 1.7 K/mm3 (1.2-5.4); Lymphocytes % (Auto) 17.8 % (13.4-35.0); Mean Corpuscular HGB Conc 34 % (30-34); Mean Corpuscular Volume 92 fl (79-97); Monocytes # (Auto) 0.8 K/mm3 (0.0-0.8); Monocytes % (Auto) 7.9 % (0.0-7.3); Platelet Count 450 K/mm3 (140-440); Red Blood Count 3.57 M/mm3 (3.65-5.03); Red Cell Distribution Width 15.4 % (13.2-15.2)
[2018-08-15 07:46] LABS: BUN/Creatinine Ratio 20; Blood Urea Nitrogen 18 mg/dL (7-17); Calcium 8.4 mg/dL (8.4-10.2); Hemolysis Index 40
[2018-08-15] MEDS: LYRICA PO SCH ×3 (09:53→20:36)
[2018-08-15] MEDS: SODIUM CHLORIDE FLUSH SYRINGE 10 ML IV SCH ×2 (09:54→22:37)
[2018-08-15] MEDS: XANAX PO SCH ×3 (09:54→20:37)
[2018-08-15] MEDS: VIBRAMYCIN PO SCH ×2 (09:54→22:37)
[2018-08-15] MEDS: PEPCID PO SCH ×2 (09:54→22:42)
[2018-08-15] MEDS: TOPAMAX PO SCH ×2 (09:54→22:37)
[2018-08-15] MEDS: GEODON PO SCH ×2 (09:54→22:37)
[2018-08-15] MEDS: LaMICtal PO SCH ×2 (09:54→22:42)
[2018-08-15] MEDS: CEFTIN PO SCH ×2 (10:03→20:36)
--- NOTE | 2018-08-15 15:38 | Progress Note ---
Assessment and Plan Assessment and plan: Patient is a 42 yo woman with a history of Fibromyalgia, noncompliant with rheumatologic medication, Asthma, obesity, Depression, bipolar disorder, schizophrenia and medication noncompliance, Left leg cellulitis with sepsis. Cultures: 08/02/2018 Urine: 10-100,000 for mixed culture > 2 organisms 08/02/2018 Blood:no growth to date 08/04/18: Left foot anaerobic: no growth to date 08/04/18: Left leg anaerobic culture: no growth to date 08/04/18: Surgical Biopsy left leg: no growth to date 08/04/18: Surgical left leg: no growth to date Sepsis with Left lower extremity cellulitis, poa: continue abx, ID following. Dog Bite Associated Cellulitis LLE: Severe tenderness, erythema resolved. No evidence of necrotizing fasciitis. Surgical biopsy of left leg with no growth to date.. 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 Mental Disorder/bipolar/Schizophrenia: Continue home medications Lamictal 100 mg PO BID for mood, Doxepin 150 mg PO HS for depression/anxiety/sleep, Geodon 80 mg PO BID for mood, Xanax 1 mg PO TID for anxiety, and start Benadryl 25 mg PO HS Hypotensive, hold dilaudid IV: give normal saline bolus and start nss maintanence fluids History Interval history: Patient was seen and examined. Follow-up on current diagnosis left leg cellulitis. Overnight uneventful. Patient not speaking much. Imaging, nursing note, chart, labs and old chart reviewed. Discussed with patient. Hospitalist Physical - Physical exam Narrative exam: GEN: WDWN, NAD, Awake, not talking HEENT: NCAT, EOMI, PERRL, OP Clear NECK: supple, no adenopathy, no thyromegaly, no JVD CVS/HEART: RRR, normal S1S2, pulses present bilaterally CHEST/LUNGS: CTA B, Symmetrical chest expansion, good air entry bilaterally GI/Abdomen: soft, NTND, good bowel sounds, no guarding or rebound /Bladder: no suprapubic tenderness, no CVA or paraspinal tenderness EXT/Skin: left leg wounds, see wound care photos, edges are clean MSK: FROM x 4 Neuro: CN 2-12 grossly intact, no new focal deficits Psych: calm but not cooperative - Constitutional Vitals: Temp Pulse Resp BP Pulse Ox 97.7 F 81 18 87/48 98 08/15/18 12:23 08/15/18 12:23 08/15/18 12:23 08/15/18 12:23 08/15/18 12:23 General appearance: Present: no acute distress Results - Labs CBC & Chem 7: 08/15/18 06:41 08/15/18 06:41 Labs: Laboratory Last Values WBC 9.7 K/mm3 (4.5-11.0) 08/15/18 06:41 RBC 3.57 M/mm3 (3.65-5.03) L 08/15/18 06:41 Hgb 11.2 gm/dl (10.1-14.3) 08/15/18 06:41 Hct 32.9 % (30.3-42.9) 08/15/18 06:41 MCV 92 fl (79-97) 08/15/18 06:41 MCH 31 pg (28-32) 08/15/18 06:41 MCHC 34 % (30-34) 08/15/18 06:41 RDW 15.4 % (13.2-15.2) H 08/15/18 06:41 Plt Count 450 K/mm3 (140-440) H 08/15/18 06:41 Lymph % (Auto) 17.8 % (13.4-35.0) 08/15/18 06:41 [place] % (Auto) 7.9 % (0.0-7.3) H 08/15/18 06:41 Eos % (Auto) 2.2 % (0.0-4.3) 08/15/18 06:41 Baso % (Auto) 0.8 % (0.0-1.8) 08/15/18 06:41 Lymph # 1.7 K/mm3 (1.2-5.4) 08/15/18 06:41 [place] # 0.8 K/mm3 (0.0-0.8) 08/15/18 06:41 Eos # 0.2 K/mm3 (0.0-0.4) 08/15/18 06:41 Baso # 0.1 K/mm3 (0.0-0.1) 08/15/18 06:41 Add Manual Diff Complete 08/10/18 06:07 Total Counted 100 08/10/18 06:07 Seg Neutrophils % 71.3 % (40.0-70.0) H 08/15/18 06:41 Seg Neuts % (Manual) 65.0 % (40.0-70.0) 08/10/18 06:07 Band Neutrophils % 0 % 08/10/18 06:07 Lymphocytes % (Manual) 16.0 % (13.4-35.0) 08/10/18 06:07 Reactive Lymphs % (Man) 0 % 08/10/18 06:07 Monocytes % (Manual) 13.0 % (0.0-7.3) H 08/10/18 06:07 Eosinophils % (Manual) 3.0 % (0.0-4.3) 08/10/18 06:07 Basophils % (Manual) 0 % (0.0-1.8) 08/10/18 06:07 Metamyelocytes % 0 % 08/10/18 06:07 Myelocytes % 3.0 % 08/10/18 06:07 Promyelocytes % 0 % 08/10/18 06:07 Blast Cells % 0 % 08/10/18 06:07 Nucleated RBC % Not Reportable 08/10/18 06:07 Seg Neutrophils # 6.9 K/mm3 (1.8-7.7) 08/15/18 06:41 Seg Neutrophils # Man 5.6 K/mm3 (1.8-7.7) 08/10/18 06:07 Band Neutrophils # 0.0 K/mm3 08/10/18 06:07 Lymphocytes # (Manual) 1.4 K/mm3 (1.2-5.4) 08/10/18 06:07 Abs React Lymphs (Man) 0.0 K/mm3 08/10/18 06:07 Monocytes # (Manual) 1.1 K/mm3 (0.0-0.8) H 08/10/18 06:07 Eosinophils # (Manual) 0.3 K/mm3 (0.0-0.4) 08/10/18 06:07 Basophils # (Manual) 0.0 K/mm3 (0.0-0.1) 08/10/18 06:07 Metamyelocytes # 0.0 K/mm3 08/10/18 06:07 Myelocytes # 0.3 K/mm3 08/10/18 06:07 Promyelocytes # 0.0 K/mm3 08/10/18 06:07 Blast Cells # 0.0 K/mm3 08/10/18 06:07 WBC Morphology Not Reportable 08/10/18 06:07 Hypersegmented Neuts Not Reportable 08/10/18 06:07 Hyposegmented Neuts Not Reportable 08/10/18 06:07 Hypogranular Neuts Not Reportable 08/10/18 06:07 Smudge Cells Not Reportable 08/10/18 06:07 Toxic Granulation Not Reportable 08/10/18 06:07 Toxic Vacuolation Not Reportable 08/10/18 06:07 Dohle Bodies Not Reportable 08/10/18 06:07 Pelger-Huet Anomaly Not Reportable 08/10/18 06:07 Tila Rods Not Reportable 08/10/18 06:07 Platelet Estimate Consistent w auto 08/10/18 06:07 Clumped Platelets Not Reportable 08/10/18 06:07 Plt Clumps, EDTA Not Reportable 08/10/18 06:07 Large Platelets Not Reportable 08/10/18 06:07 Giant Platelets Not Reportable 08/10/18 06:07 Platelet Satelliting Not Reportable 08/10/18 06:07 Plt Morphology Comment Not Reportable 08/10/18 06:07 RBC Morphology Not Reportable 08/10/18 06:07 Dimorphic RBCs Not Reportable 08/10/18 06:07 Polychromasia Not Reportable 08/10/18 06:07 Hypochromasia Not Reportable 08/10/18 06:07 Poikilocytosis Not Reportable 08/10/18 06:07 Anisocytosis Few 08/10/18 06:07 Microcytosis Not Reportable 08/10/18 06:07 Macrocytosis Rare 08/10/18 06:07 Spherocytes Not Reportable 08/10/18 06:07 Pappenheimer Bodies Not Reportable 08/10/18 06:07 Sickle Cells Not Reportable 08/10/18 06:07 Target Cells Not Reportable 08/10/18 06:07 Tear Drop Cells Not Reportable 08/10/18 06:07 Ovalocytes Not Reportable 08/10/18 06:07 Helmet Cells Not Reportable 08/10/18 06:07 [place] Bodies Not Reportable 08/10/18 06:07 [place] Rings Not Reportable 08/10/18 06:07 [place] Cells Not Reportable 08/10/18 06:07 Bite Cells Not Reportable 08/10/18 06:07 Crenated Cell Not Reportable 08/10/18 06:07 Elliptocytes Not Reportable 08/10/18 06:07 Acanthocytes (Spur) Not Reportable 08/10/18 06:07 Rouleaux Not Reportable 08/10/18 06:07 Hemoglobin C Crystals Not Reportable 08/10/18 06:07 Schistocytes Not Reportable 08/10/18 06:07 Malaria parasites Not Reportable 08/10/18 06:07 ESR 4 mm/Hr (0-20) 08/02/18 Unknown [place] Bodies Not Reportable 08/10/18 06:07 Hem Pathologist Commnt No 08/10/18 06:07 Sodium 140 mmol/L (137-145) 08/15/18 06:41 Potassium 3.7 mmol/L (3.6-5.0) 08/15/18 06:41 Chloride 107.0 mmol/L (98-107) 08/15/18 06:41 Carbon Dioxide 24 mmol/L (22-30) 08/15/18 06:41 Anion Gap 13 mmol/L 08/15/18 06:41 BUN 18 mg/dL (7-17) H 08/15/18 06:41 Creatinine 0.9 mg/dL (0.7-1.2) 08/15/18 06:41 Estimated GFR > 60 ml/min 08/15/18 06:41 BUN/Creatinine Ratio 20 % 08/15/18 06:41 Glucose 93 mg/dL (65-100) 08/15/18 06:41 Lactic Acid 0.50 mmol/L (0.7-2.0) L 08/03/18 16:18 Calcium 8.4 mg/dL (8.4-10.2) 08/15/18 06:41 Total Bilirubin 0.20 mg/dL (0.1-1.2) 08/07/18 08:40 AST 202 units/L (5-40) H 08/07/18 08:40 ALT 69 units/L (7-56) H 08/07/18 08:40 Alkaline Phosphatase 71 units/L (35-129) 08/07/18 08:40 Total Creatine Kinase 605 units/L (30-135) H 08/02/18 Unknown CK-MB (CK-2) 285.3 ng/mL (0.0-4.0) H 08/02/18 Unknown CK-MB (CK-2) Rel Index 47.1 (0-4) H 08/02/18 Unknown Troponin T < 0.010 ng/mL (0.00-0.029) 08/02/18 Unknown C-Reactive Protein 22.10 mg/dL (0.00-1.30) H 08/08/18 00:13 Total Protein 6.2 g/dL (6.3-8.2) L 08/07/18 08:40 Albumin 2.6 g/dL (3.9-5) L 08/07/18 08:40 Albumin/Globulin Ratio 0.7 % 08/07/18 08:40 HCG, Qual Negative (Negative) 08/02/18 Unknown Urine Color Lori (Yellow) 08/02/18 10:24 Urine Turbidity Cloudy (Clear) 08/02/18 10:24 Urine pH 6.0 (5.0-7.0) 08/02/18 10:24 Ur Specific Fiatt 1.020 (1.003-1.030) 08/02/18 10:24 Urine Protein 100 mg/dl mg/dL (Negative) 08/02/18 10:24 Urine Glucose (UA) Neg mg/dL (Negative) 08/02/18 10:24 Urine Ketones Neg mg/dL (Negative) 08/02/18 10:24 Urine Blood Lg (Negative) 08/02/18 10:24 Urine Nitrite Neg (Negative) 08/02/18 10:24 Urine Bilirubin Neg (Negative) 08/02/18 10:24 Urine Urobilinogen 2.0 mg/dL (<2.0) 08/02/18 10:24 Ur Leukocyte Esterase Neg (Negative) 08/02/18 10:24 Urine WBC (Auto) 7.0 /HPF (0.0-6.0) H 08/02/18 10:24 Urine RBC (Auto) 3.0 /HPF (0.0-6.0) 08/02/18 10:24 U Epithel Cells (Auto) 4.0 /HPF (0-13.0) 08/02/18 10:24 Urine Mucus 2+ /HPF 08/02/18 10:24 Urine HCG, Qual Negative (Negative) 08/02/18 10:24 Vancomycin Trough 18.2 ug/mL (5.0-20.0) 08/06/18 10:42 Urine Opiates Screen Presumptive negative 08/02/18 10:33 Urine Methadone Screen Presumptive negative 08/02/18 10:33 Ur Barbiturates Screen Presumptive negative 08/02/18 10:33 Ur Phencyclidine Scrn Presumptive negative 08/02/18 10:33 Ur Amphetamines Screen Presumptive negative 08/02/18 10:33 U Benzodiazepines Scrn Presumptive positive 08/02/18 10:33 Urine Cocaine Screen Presumptive negative 08/02/18 10:33 U Marijuana (THC) Screen Presumptive negative 08/02/18 10:33 Drugs of Abuse Note Disclamer 08/02/18 10:33 DEXTER Screen Negative (Negative) 08/04/18 10:00 Proteinase 3 (PR3) Ab <1.0 AI (<1.0) 08/04/18 10:00 Myeloperoxidase Ab <1.0 AI (<1.0) 08/04/18 10:00 Complement C3 154 mg/dL (83-193) 08/04/18 10:00 Complement C4 31 mg/dL (15-57) 08/04/18 10:03 Nutrition/Malnutrition Assess - Dietary Evaluation Nutrition/Malnutrition Findings: Nutrition Notes Start: 08/09/18 14:05 Freq: Status: Active Protocol: Document 08/11/18 12:24 JOSEPH (Rec: 08/11/18 13:02 [email or web address]) Co-Sign 08/11/18 12:24 LP Nutrition Notes Initial or Follow up Reassessment Other Pertinent Diagnosis Fibromyalgia, multiple wounds, sepsis secondary to cellulitis Current Diet Regular diet with consistent CHO + Ensure High Protein and Jonathon Labs/Tests Reviewed Pertinent Medications Reviewed Height 5 ft 7 in Weight 105.5 kg [place] Body Weight (kg) 61.36 BMI 36.4 Weight Status Morbidly Obese Subjective/Other Information F/u for PO and ONS intakes, ONS tolerance. Pt stated her appetite has been lower than normal, but she was able to eat all of her breakfast this AM except for the toast. Pt stated she did not like Jonathon but likes the Ensure high protein. Encouraged pt to continue to try to drink all of Ensure high protein daily. Percent of energy/protein needs met: 100%/79% Burn Absent Trauma Absent #1 Nutrition Diagnosis Increased nutrient needs ( specify in comment below) Comments: Protein Diagnosis Progress(for reassessment Continues documentation) Is patient on ventilator? No Is Patient Ambulatory and/or Out of Bed No REE[facility]) 2094.012 Kcal/Kg value to use for calculation 15 Approximate Energy Requirements Using 1583 kcal/Kg Calculation Used for Recommendations Kcal/kg Additional Notes AdjBW = 82.48 kg Pro needs = 103-124g/day (1.25 -1.5 g/kg AdjBW) Fluid = 1 ml/kcal Nutrition Intervention Change Diet Order: Continue regular diet Add Supplement/Snack (indicate name/kcal Ensure High Protein daily /protein ) D/C Jonathon Provides kCal: 160 Provides Protein (gm) 16 Goal #1 Continue to meet at least 75% of energy and protein needs via PO and ONS intakes Goal #2 Wound healing Anticipated Discharge Needs: Regular diet Follow-Up By: 08/18/18 Additional Comments F/u for stable intakes
[2018-08-15] MEDS ORDERED: NACL 0.9% 500 ML 500 ML IV ONE (15:40)
[2018-08-15] MEDS: NACL 0.9% 1000 ML 1,000 ML IV SCH (17:38)
[2018-08-15] MEDS: SINEquan PO SCH ×2 (22:37)
[2018-08-16] MEDS: PERCOCET 5/325 PO PRN ×2 (05:35→11:18)
[2018-08-16] MEDS: NACL 0.9% 1000 ML 1,000 ML IV SCH (05:39)
[2018-08-16] MEDS: HEPARIN SUB-Q SCH ×3 (05:39→22:54)
[2018-08-16] MEDS: XANAX PO SCH ×2 (08:58→14:00)
[2018-08-16] MEDS: LYRICA PO SCH ×2 (08:58→14:00)
[2018-08-16] MEDS: CEFTIN PO SCH (08:58)
[2018-08-16] MEDS: VIBRAMYCIN PO SCH (11:06)
[2018-08-16] MEDS: PEPCID PO SCH ×2 (11:07→22:54)
[2018-08-16] MEDS: GEODON PO SCH ×2 (11:07→22:53)
[2018-08-16] MEDS: SODIUM CHLORIDE FLUSH SYRINGE 10 ML IV SCH (11:08)
[2018-08-16] MEDS: TOPAMAX PO SCH ×2 (11:08→22:52)
[2018-08-16] MEDS: LaMICtal PO SCH ×2 (11:08→22:53)
[2018-08-16] MEDS: DILAUDID IV PRN (18:17)
[2018-08-16] MEDS: SINEquan PO SCH ×2 (22:52→22:53)
[2018-08-17] MEDS: PERCOCET 5/325 PO PRN ×2 (00:03→05:43)
[2018-08-17] MEDS: LYRICA PO SCH ×3 (00:05→13:25)
[2018-08-17] MEDS: XANAX PO SCH ×3 (00:06→13:25)
[2018-08-17] MEDS: SODIUM CHLORIDE FLUSH SYRINGE 10 ML IV SCH ×2 (00:08→11:14)
[2018-08-17] MEDS: HEPARIN SUB-Q SCH ×2 (05:44→13:25)
[2018-08-17] MEDS: NACL 0.9% 1000 ML 1,000 ML IV SCH (08:57)
[2018-08-17] MEDS: GEODON PO SCH (11:12)
[2018-08-17] MEDS: LaMICtal PO SCH (11:14)
[2018-08-17] MEDS: TOPAMAX PO SCH (11:14)
[2018-08-17] MEDS: PEPCID PO SCH (11:14)
[2018-08-17 12:38] VITALS: BP 112/71
[2018-08-17] MEDS: DILAUDID IV PRN (13:24)
--- NOTE | 2018-08-17 15:19 | Discharge Summary ---
Providers - Providers Date of Admission: 08/02/18 16:58 Date of discharge: 08/17/18 Attending physician: SOURAV REDDY 08/03/18 07:11 Consult to Wound/ET Nurse [CONS] Urgent Reason For Exam: wound eval 08/03/18 10:43 Consult to Physician [CONS] Routine Comment: Consulting Provider: KASSIE VAZQUEZ Physician Instructions: Reason For Exam: blisters and cellulitis of the left leg 08/04/18 13:38 Consult to Physician [CONS] Routine Comment: Consulting Provider: GARTH KENT Physician Instructions: Reason For Exam: LLE swelling and pain ?necrotizing facitis 08/06/18 16:45 psychiatry consult [Consult to Mental Health] [CONS] Routine Reason For Exam: persistent acute encephalopathy - mental health hx 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 She was seen by PT and SNF was recommended, but patient triggered a level 2 psych clearance which took awhile to come through. Cultures: 08/02/2018 Urine: 10-100,000 for mixed culture > 2 organisms 08/02/2018 Blood:no growth to date 08/04/18: Left foot anaerobic: no growth to date 08/04/18: Left leg anaerobic culture: no growth to date 08/04/18: Surgical Biopsy left leg: no growth to date 08/04/18: Surgical left leg: no growth to date Sepsis with Left lower extremity cellulitis, poa: finished abx Dog Bite Associated Cellulitis LLE: Severe tenderness, erythema resolved. No evidence of necrotizing fasciitis. Surgical biopsy of left leg with no growth to date. 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 Acute Encephalopathy Improved. Mental Disorder/bipolar/Schizophrenia: stable, Continue home medications Lamictal 100 mg PO BID for mood, Doxepin 150 mg PO HS for depression/anxiety/sleep, Geodon 80 mg PO BID for mood, Xanax 1 mg PO TID for anxiety, and start Benadryl 25 mg PO HS Hypotensive, resolved Disposition: [facility] Disposition: DC/[place]-03 SNF W [facility] CERT Time spent for discharge: 35 minutes Core Measure Documentation - Palliative Care Palliative Care/ Comfort Measures: Not Applicable - Core Measures Any of the following diagnoses?: none - VTE Discharge Requirements Deep Vein Thrombosis/Pulmonary Embolism Present on Admission: No Has pt received <5 days of overlap therapy or INR<2.0: No Anticoagulant overlap therapy prescribed at discharge: No Contraindication No Overlap Therapy order at DC: Not Indicated Exam - Physical Exam Narrative exam: GEN: WDWN, NAD, Awake, not talking HEENT: NCAT, EOMI, PERRL, OP Clear NECK: supple, no adenopathy, no thyromegaly, no JVD CVS/HEART: RRR, normal S1S2, pulses present bilaterally CHEST/LUNGS: CTA B, Symmetrical chest expansion, good air entry bilaterally GI/Abdomen: soft, NTND, good bowel sounds, no guarding or rebound /Bladder: no suprapubic tenderness, no CVA or paraspinal tenderness EXT/Skin: left leg wounds, see wound care photos, edges are clean MSK: FROM x 4 Neuro: CN 2-12 grossly intact, no new focal deficits Psych: calm but not cooperative - Constitutional Vitals: Temp Pulse Resp BP Pulse Ox 97.3 F L 81 22 112/71 100 08/17/18 12:16 08/17/18 12:16 08/17/18 12:16 08/17/18 12:16 08/17/18 12:16 Plan Activity: up only with assistance, other (no strenous activity) Diet: low salt Special Instructions: record daily BP diary Follow up with: MASON SALGADO MD [Primary Care Provider] - 7 Days KASSIE VAZQUEZ MD [Staff Physician] - 7 Days GARTH KENT DO [Staff Physician] - 7 Days Prescriptions: diphenhydrAMINE [Benadryl CAP] 25 mg PO QHS PRN #30 capsule PRN Reason: Sleep Doxepin [SINEquan] 100 mg PO QHS #30 capsule Ziprasidone [Geodon] 80 mg PO BID #60 capsule Haloperidol [Haldol] 5 mg PO HS PRN #60 tablet PRN Reason: Agitation LaMICtal 100 tab PO BID #60 Lyrica 150 mg PO TID #90 Famotidine [Pepcid] 20 mg PO BID #30 tablet oxyCODONE /ACETAMINOPHEN [Percocet 5/325 mg] 2 tab PO Q6H PRN #15 tablet PRN Reason: Pain , Severe (7-10) Doxepin [SINEquan] 50 mg PO HS #30 capsule Topiramate [Topamax] 200 mg PO BID #60 tablet ALPRAZolam [Xanax TAB] 1 mg PO TID #90 tablet
== END 2018-08-17 18:15 | DRG 853 ==
LOC: ED 06:20 → 3A 16:58 → IMCU 08-04 21:07 → 3A 08-10 15:13
PROVIDERS: ADMIT Internal Medicine; ATTEND Internal Medicine
PROC: 0J9P0ZZ Drainage of Left Lower Leg Subcutaneous Tissue and Fascia, Open Approach (ICD-10-PCS; principal; 2018-08-04)
PROC: 0JBP0ZX Excision of Left Lower Leg Subcutaneous Tissue and Fascia, Open Approach, Diagnostic (ICD-10-PCS; 2018-08-04)
PROC: 0J9R0ZZ Drainage of Left Foot Subcutaneous Tissue and Fascia, Open Approach (ICD-10-PCS; 2018-08-04)
PROC: 0JBR0ZX Excision of Left Foot Subcutaneous Tissue and Fascia, Open Approach, Diagnostic (ICD-10-PCS; 2018-08-04)
DX: A41.9 Sepsis, unspecified organism (principal); N17.0 Acute kidney failure with tubular necrosis; G92 Toxic encephalopathy; L03.116 Cellulitis of left lower limb; M62.82 Rhabdomyolysis; N30.01 Acute cystitis with hematuria; L03.115 Cellulitis of right lower limb; L88 Pyoderma gangrenosum; J45.909 Unspecified asthma, uncomplicated; E66.9 Obesity, unspecified; M79.7 Fibromyalgia; F31.9 Bipolar disorder, unspecified; F20.9 Schizophrenia, unspecified; M06.9 Rheumatoid arthritis, unspecified; F41.9 Anxiety disorder, unspecified; W54.0XXA Bitten by dog, initial encounter; Y93.89 Activity, other specified; Y92.89 Other specified places as the place of occurrence of the external cause; Y99.8 Other external cause status; Z68.33 Body mass index [BMI] 33.0-33.9, adult; Z88.5 Allergy status to narcotic agent
CPT/HCPCS: 36415; 70450; 71045; 80048; 80053; 80202; 80307; 81001; 81025; 82140; 82550; 82553; 84484; 84703; 85007; 85025; 85652; 86021; 86038; 86140; 86160; 87040; 87075; 87086; 87116; 93005; 93010; 93970; 94760; 96361; 96365; 96367; 96375; G0378; J0295; J0692; J0696; J1100; J1170; J1644; J2185; J2704; J2920; J3010; J3370; J7030; J7040; J7050; Q9967